=== PATIENT | male | born 1930 | race Caucasian/White ===

== ENCOUNTER 2018-12-03 10:21 | Inpatient (IN) ==
[2018-12-03] MEDS: 0.9 % Sodium Chloride 1,000 ML IVC SCH ×2 (11:37→21:52)
[2018-12-03] MEDS ORDERED: ISOVUE-370 200 ML INFUS..BTL ONE (11:43)
[2018-12-03] MEDS ORDERED: Nitroglycerin 1,000 MCG/10 ML VIAL IV ONE (11:43)
[2018-12-03] MEDS ORDERED: *HR* Heparin 10,000 UNIT/10 ML VIAL ONE (11:43)
[2018-12-03] MEDS ORDERED: 0.9 % Sodium Chloride 1,000 ML ONE (11:43)
[2018-12-03] MEDS ORDERED: Heparin 1,000 UNITS/500 mL 500 ML ONE (11:43)
[2018-12-03] MEDS ORDERED: *HR* Midazolam HCl 2 MG/2 ML VIAL ONE (12:27)
[2018-12-03] MEDS ORDERED: *HR* FentaNYL (PF) 100 MCG/2 ML VIAL ONE (12:27)
--- NOTE | 2018-12-03 13:30 | Pre-Sedation Evaluation ---
Pre-sedation evaluation - Pre-sedation checklist Date of procedure: 12/03/18 Procedure: Left heart cath Recent Vitals: Last Vital Signs Temp 98.4 F 12/03/18 10:38 Pulse 64 12/03/18 10:38 Resp 16 12/03/18 10:38 BP 184/82 12/03/18 10:38 Pulse Ox 97 12/03/18 10:38 H&P (including ROS) documented in medical record: Yes Previous reaction to sedatives/anesthetics: No Dietary Status: NPO after Midnight Dentition: No loose teeth or bridges ASA Classification *see protocol: CLASS II-Mild systemic disease Cardiac Registry (Cardio Only) - Functional Capacity Functional Capacity: >=4 METS without symptoms - Clincal Frailty Scale Clinical Frailty Scale: Managing Well
--- NOTE | 2018-12-03 13:31 | History & Physical Report ---
Date of Encounter: 12/03/18 Time of Encounter: 13:30 24 Hour HP Update - Instructions Instructions: If the History and Physical is less than 30 days old and was completed prior to A.M. admission and or procedure and has NOT been updated on calendar day of procedure please complete this update prior to performing procedure. - Update Patient reports changes in Medical Condition: No Changes in examination, assessment, or condition: No Changes in Medication: No Preop tests/diagnostics Reviewed: Yes Surgery Remains Indicated: Yes Consent for Planned Operative Procedure(s) Verified: Yes
--- NOTE | 2018-12-03 13:40 | Invasive Diagnostic Lab Proc ---
Name: Erik Coughlin Date of Study: 12/03/2018 Date: 1930 Ht: 68.0in Medical Record#: [id number] Age: 88 Wt: 163.00lb Gender: Male BSA: 1.87 Order #: [id number] BMI: 24.78 Physicians Procedure Physician: Kian Montana MD Referring MD: Emilee Conrad CNP Referring MD: Aleksey Joseph MD, [facility] Indications Indication Unstable Angina Procedures Performed Procedure CORONARY ARTERY ANGIO S&I Pre-Procedure Checklist Informed consent is complete signed and on chart. H&P is on chart. ID band is on and ID verified with patient. Patient NPO for procedure The procedure was described for the patient and questions were answered. Blood Pressure: 184/82 ECG is on chart. Rhythm: NSR Plan of Care Patient will tolerate the procedure without complications. Adequate level of comfort will be maintained. Hemodynamics will remain stable Patient will recover from procedure without complications. Respiratory function will be maintained. Cardiac rhythm will remain stable. Patient temperature will be maintained. Patient and/or family have verbalized understanding of the procedure. Patient Education Chief Complaint/Reason for Test: Cardiac Cath Developmental Category: Geriatric (65+ years) Developmentally Appropriate for Age: Yes Learning Barriers: None Education Needs: Procedure Education Method: Verbal Information Taught: Cardiac Cath Educational Evaluation: Able to repeat information Intravenous Access Time IV Size Location DC'd Fluid/Drip Rate Units RN 11:20 AM Started with 20g 1 1/4" Lt Arm 0.9NaCl 100 ml/hr Chemo Rojas RN Allergies No Known Allergies Vital Signs Time BP (mmHg) HR (bpm) O2 Sat. RR (bpm) LOC 11:23 AM 184 / 82 62 98 % 20 5 = Fully awake and oriented or at pre-proc level 12:32 PM / % 5 = Fully awake and oriented or at pre-proc level 12:32 PM / % 4 = Oriented but drowsy 12:48 PM / % 4 = Oriented but drowsy 01:07 PM 172 / 77 68 100 % 21 01:12 PM 168 / 82 73 % 24 12:32 PM 183 / 81 75 100 % 14 12:37 PM 176 / 77 63 100 % 15 12:42 PM 167 / 80 65 100 % 12 12:47 PM 169 / 75 61 100 % 16 12:52 PM 167 / 78 62 100 % 16 12:57 PM 157 / 73 61 100 % 18 01:02 PM 167 / 68 62 100 % 14 Procedural Medications Time Medication Dose Units Method Given By 12:32 PM Oxygen 2 L/min nasal cannula Taylor Fraire RN 12:34 PM Versed 1 mg Intravenous Taylor Fraire RN 12:34 PM Fentanyl 50 mcg Intravenous Taylor Fraire RN 12:48 PM Lidocaine 2% 19 ml Subcutaneous Kian Montana MD 12:53 PM Versed 0.5 mg Intravenous Taylor Fraire RN 12:53 PM Fentanyl 25 mcg Intravenous Taylor Fraire RN 12:55 PM Heparin 500 units Intravenous Taylor Fraire RN ASA Classification: CLASS II- Mild systemic disease (i.e. well-controlled diabetes, hypertension, asthma, cigarette smoking) Angle Score Preprocedure Postprocedure Activity 2- Moves 4 extremities sustained head lift Activity 2- Moves 4 extremities sustained head lift Circulation 2- SBP +/= 20 points of pre-anesthetic level Circulation 2- SBP +/= 20 points of pre-anesthetic level Consciousness 2- Awake and alert oriented x 3 Consciousness 2- Awake and alert oriented x 3 O2 Saturation 2- Able to maintain O2 satruation of 92% on room air O2 Saturation 2- Able to maintain O2 satruation of 92% on room air Respiratory 2- Able to deep breathe and cough well Respiratory 2- Able to deep breathe and cough well Total Score 10 Total Score 10 Contrast Agent: Isovue Diagnostic Contrast: 75 ml Total Contrast: 75 ml Fluoro Dose: 45 mGy Procedure Log Time Note Enter By 11:28 AM Risk for fall? ejohnson 11:28 AM Evidence of mental, physical, or emotional abuse? No ejohnson 11:28 AM Does patient have suicidal ideations? No ejohnson 12:31 PM Vitals capture started with the following parameters, Patient=Adult, Interval=5 min, Initial Ijpsklex=173 mmHg, Deflation Rate=5 mmHg, Cuff placed on Left Arm 12:31 PM Recorded ECG: HR=71 Condition=Condition 1 12:31 PM CathStat 12:32 PM Pt arrived to label sewer 1 at 12:32 cedwards 12:32 PM Patient charges- Angio tray pack, Navilyst 3mm J, Pulse Oximetry and ACIST tubing and transducer cedwards 12:32 PM IV Supplies used: J loop Angio Cath. cedwards 12:32 PM Physician arrived 12:32 cedwards 12:32 PM ASA Class CLASS II- Mild systemic disease (i.e. well-controlled diabetes, hypertension, asthma, cigarette smoking) cedwards 12:32 PM Meet and greet completed ced 12:32 PM Sign in performed according to hospital policy. Informed consent was obtained. ced 12:32 PM Procedure start 12:32 ced 12:32 PM Time: 12:32 Patient comfortable and pain free: Yes cedwards 12:32 PM HR=75 bpm, YYKD=490/81 mmhg, ClU2=741.0 %, Resp=14 B/min, EtCO2=27 mmHg, Comment=NSR 12:32 PM Time: 12:32LOC: 5 = Fully awake and oriented or at pre-proc level cedwards 12:33 PM Time: 12:32 Oxygen on at 2 L/min per nasal cannula by Taylor Fraire RN cedwards 12:33 PM Hair removed from procedure site in holding area using clippers. Bilateral groin prepped with Chloraprep by Nicanor Wagner RN, then patient was draped. Skin intact. cedwards 12:34 PM Time: 12:34 Versed 1 mg Intravenous Given by Taylor Fraire RN ced 12:34 PM Time: 12:34 Fentanyl 50 mcg Intravenous Given by Taylor Fraire RN cedwards 12:37 PM HR=63 bpm, SPCL=376/77 mmhg, NuV8=668.0 %, Resp=15 B/min, EtCO2=20 mmHg, Comment=NSR 12:40 PM Pressure channel 2 zeroed. 12:42 PM HR=65 bpm, PQYY=159/80 mmhg, OxI5=707.0 %, Resp=12 B/min, EtCO2=26 mmHg, Comment=NSR 12:47 PM Clinical Presentation: Unstable angina cedwards 12:47 PM Time out was performed according to hospital policy. Conscious sedation and anesthesia was achieved (see medication log with in this report above) cedwards 12:47 PM HR=61 bpm, OZXG=445/75 mmhg, UeV8=406.0 %, Resp=16 B/min, EtCO2=27 mmHg, Comment=NSR 12:48 PM Time: 12:32LOC: 4 = Oriented but drowsy cedwards 12:48 PM Time: 12:32 Patient comfortable and pain free: Yes cedwards 12:48 PM Pressure channel 2 zeroed. 12:48 PM Time: 12:48 19 ml Lidocaine 2% to right groin Subcutaneous Given by Kian Montana MD cedwards 12:49 PM Micro-Introducer Kit utilized for sheath placement cedwards 12:51 PM 0.035 145cm Navilyst 3mmJ wire [id number] cedwards 12:51 PM Access obtained by percutaneous puncture. 6Fr 10cm Terumo [place] sheath placed in right Femoral artery. [id number] cedwards 12:52 PM HR=62 bpm, XJJK=828/78 mmhg, GjB3=381.0 %, Resp=16 B/min, EtCO2=26 mmHg, Comment=NSR 12:53 PM Time: 12:53 Versed 0.5 mg Intravenous Given by Taylor Fraire RN cedwards 12:53 PM Time: 12:53 Fentanyl 25 mcg Intravenous Given by Taylor Fraire RN cedwards 12:54 PM 5Fr FR 4 catheter inserted over the wire [facility] cedwards 12:55 PM RCA angiography performed in multiple views. cedwards 12:55 PM Time: 12:55 Heparin 500 units Intravenous Given by Taylor Fraire RN cedwards 12:56 PM Catheter removed cedwards 12:56 PM 5Fr FL 4 catheter inserted over the wire [facility] cedwards 12:56 PM LCA angiography performed in multiple views. cedwards 12:57 PM HR=61 bpm, TPXP=742/73 mmhg, SlG0=487.0 %, Resp=18 B/min, Comment=NSR 12:58 PM Recorded Pressure: Ao, HR=63, Condition=Condition 1 (Aorta) Ao 117/50/73 12:59 PM Catheter removed cedwards 01:00 PM 5Fr SRC catheter inserted over the wire [id number] cedwards 01:01 PM Recorded Pressure: Ao, HR=63, Condition=Condition 1 (Aorta) Ao 176/70/110 01:02 PM RCA angiography performed in multiple views. cedwards 01:02 PM HR=62 bpm, FSKS=898/68 mmhg, LhJ6=714.0 %, Resp=14 B/min, EtCO2=29 mmHg, Comment=NSR 01:03 PM Time: 12:48 Patient comfortable and pain free: Yes cedwards 01:03 PM Time: 12:48LOC: 4 = Oriented but drowsy cedwards 01:04 PM Catheter removed cedwards 01:05 PM 5Fr Pigtail catheter inserted over the wire DNC cedwards 01:06 PM unable to cross valve cedwards 01:07 PM HR=68 bpm, PRIS=451/77 mmhg, GmB8=675.0 %, Resp=21 B/min 01:07 PM Catheter removed cedwards 01:08 PM Cardiothoracic surgeon consulted, spoke with Dr. Mccord cedwards 01:08 PM Procedure completed at 13:08 12/03/2018 cedwards 01:08 PM Did you address SABA flow and Dominance? YesCoronary Dominance: right cedwards 01:09 PM Sign out completed: Radiation Dose 320.88 mGy, 45.4 Gy/cm2 Fluoro Time: 7.7 Isovue 370 - 200ml contrast 75 ml given by Kian Montana MD. Complications: None. 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 Sedation minutes 34. Cardiac Rehab Consult needed: Yes. Confirmed administered medications: Yes cedwards 01:09 PM Isovue 370 - 200ml,1 Bottle(s) used. cedwards 01:10 PM Arterial sheath pulled, Mynx closure device used and was Successful [id number] S/N. cedwards 01:10 PM Estimated Blood Loss: minimal cedwards 01:10 PM Post ECG NSR cedwards 01:10 PM Post Blood Pressure 172/77 cedwards 01:10 PM Information taught Cardiac Cath and Mynx cedwards 01:10 PM Education needs Procedure, Plan of Care, and Disease Process cedwards 01:10 PM Learning barriers :None cedwards 01:10 PM Education Methods Verbal cedwards 01:10 PM Education evaluation Able to repeat information cedwards 01:11 PM Site status No bleeding/ No Hematoma - Rt Groin as reported by Kian Montana MD at 13:10 cedwards 01:11 PM Opsite applied cedwards 01:11 PM Plavix, Effient or Brilinta given No cedwards 01:11 PM Family placed in consult room. cedwards 01:11 PM Complications: None cedwards 01:12 PM HR=73 bpm, UVNU=641/82 mmhg, Resp=24 B/min 01:20 PM Report given to Tessie KIRKPATRICK Pt taken to 2A Room #25. 13:20 cedwards 01:22 PM Lesion found in Proximal RCA. Pre Stenosis: 70 Pre SABA Flow: cedwards 01:22 PM Lesion found in Mid RCA. Pre Stenosis: 60 Pre SABA Flow: cedwards 01:23 PM Lesion found in Proximal LMCA. Pre Stenosis: 70 Pre SABA Flow: cedwards 01:23 PM Lesion found in Proximal LAD. Pre Stenosis: 70 Pre SABA Flow: cedwards 01:23 PM Lesion found in Distal Circumflex. Pre Stenosis: 80 Pre SABA Flow: cedwards 01:23 PM Lesion found in Right PDA. Pre Stenosis: 70 Pre SABA Flow: cedwards 01:[address] Mccord in lab reviewing films cedwards Complications Complication None None Hemodynamics Pressures Site Systolic/A Wave Diastolic/V Wave Mean AO 117 50 73 AO 176 70 110 Post Procedure Information Blood Pressure: 172/77 mmHg Rhythm: NSR Post procedural instructions were given Closure Device Time Device Success/Fail 12/03/2018 1:21:00 PM MynxGrip Successful Site Checks Time Location Status Staff Sheath In? Note 01:10 PM Rt Groin No bleeding/ No Hematoma Kian Montana MD no Pulses Time Site Pre-Procedure Post-Procedure Note 12/03/2018 11:21:00 AM Bilateral DP & PT 2+ 2+ Updated by Nicanor Wagner RN on 12/03/2018 1:30:01 PM electronically signed on 12/03/2018 1:33:56 PM with status of Final
--- NOTE | 2018-12-03 15:22 | Cardiothoracic Consult Note ---
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 Recently, the patient has experienced throat pain radiating to his upper chest and associated shortness of breath. He mentioned these symptoms to his vascular surgeon, Dr. Jimmy Torres, who referred him for cardiac evaluation. The patient underwent cardiac catheterization today was found to have severe 3 vessel CAD. In particular, the patient has a 70% ostial/proximal left main lesion, 70% proximal LAD lesion, an 80% distal LCx lesion, 70% proximal RCA lesion, a 60% mid RCA lesion, and a 70% mid right PDA lesion. He has been recommended for urgent CABG. I concur with this recommendation. The STS risk calculator reveals an operative mortality risk 5.32%, renal failure risk 7.44%, permanent stroke risk 2.66%, deep sternal wound infection 0.31%, and reoperation risk 2.29%. Prior to his CABG, the patient will need a transthoracic echocardiogram to evaluate his valvular function as well as a serum creatinine level to ensure that the contrast load did not affect his renal function. If the transthoracic echocardiogram and the sternum creatinine are acceptable, the patient will be scheduled for CABG on 12/05/2018. The assessment and plan as outlined above was discussed with the patient and/or family members who expressed understanding and agreement. All questions were answered. Qualifiers: Coronary Disease-Associated Artery/Lesion type: [place] artery [place] vs. transplanted heart: [place] heart Associated angina: with unstable angina Qualified Code(s): I25.110 - Atherosclerotic heart disease of [place] coronary artery with unstable angina pectoris - History of Present Illness Consult date: 12/03/18 Requesting physician: Kian Montana Consult reason: CABG evaluation Chief complaint: Substernal chest pain History of present illness: Mr. Coughlin is a 88 year old type II diabetic, hypertensive man with known right carotid artery disease, hypercholesterolemia, and CKD, Stage III. The patient was being evaluated by his vascular surgeon, Dr. Jimmy Torres, for his right carotid artery disease and mentioned that he had throat pain radiating into his upper chest. He was referred for cardiac evaluation. 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 Recently, the patient states that the symptoms have become more frequent and severe. He underwent cardiac catheterization today was found to have severe 3 vessel CAD. In particular, the patient has a 70% ostial/proximal left main lesion, a 70% proximal LAD lesion, an 80% distal LCx lesion, a 70% proximal RCA lesion, a 60% mid RCA lesion, and a 70% mid right PDA lesion. He has been recom mended for urgent CABG. 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 - Social History Smoking Status: Former smoker Packs per day: < 1PPD x 8YRS (quit smoking 58 years ago) Smokeless Tobacco Status: No Alcohol use: occasionally Drug use: none Occupational status: retired Current living situation: Home - Independent Activity Level: Independent ambulation Recent Out of Country Travel Within the Last 8 Weeks: No Exposure or Possible Exposure to Illness During Travel: No - Family History Mother Living Status: Medications and Allergies Amlodipine Besylate 10 mg PO DAILY 10/30/15 [History] Aspirin Enteric Coated [Aspirin EC] 81 mg PO DAILY 10/30/15 [History] Cholecalciferol (D-3) [Vitamin D] 1,000 unit PO DAILY 10/30/15 [History] Ferrous Sulfate [Iron Supplement] 325 mg PO BID 10/30/15 [History] Insulin ASPART [Novolog Flexpen] 4 - 10 unit SQ TID 10/30/15 [History] Lisinopril 2.5 mg PO DAILY 10/30/15 [History] Nitroglycerin [Nitrostat] 0.4 mg SL AD PRN 10/30/15 [History] Tamsulosin [Flomax] 0.4 mg PO DAILY 10/30/15 [History] Denosumab [Prolia (For Outpatient Infusion)] 60 mg SQ [id number] 12/03/18 [History] Finasteride [Proscar] 5 mg PO DAILY 12/03/18 [History] Insulin Degludec [Tresiba Flextouch U-200] 12 unit SQ DAILY 12/03/18 [History] Lisinopril 2.5 mg PO DAILY 12/03/18 [History] Metoprolol Succinate [Toprol Xl] 25 mg PO DAILY 12/03/18 [History] Rosuvastatin [Crestor] 20 mg PO HS 12/03/18 [History] Allergy/AdvReac Type Severity Reaction Status Date / Time No Known Allergies Allergy Verified 10/30/15 12:56 All Systems Review: The remainder of the systems were reviewed and are negative Physical Examination Vital Signs, Last 4 Hours Temp Pulse Resp BP Pulse Ox 12/03/18 14:30 62 16 162/79 96 12/03/18 14:15 62 16 162/79 96 12/03/18 14:06 95 12/03/18 14:00 64 16 155/77 99 12/03/18 13:45 97.9 F 65 16 157/66 97 General: Conversant, No Apparent Distress HEENT: Atraumatic, Normocephaly, Trachea midline Neck: No JVD, Normal carotid pulses Cardiac: Reg Rate and Rhythm, Normal S1 and S2, No Murmur Lungs: Normal Breath Sounds, No Wheeze, Rales, Rhonchi Neuro: Alert and responsive, No focal deficits noted, Motor nerves intact, Sensory nerves intact Vascular: Normal capillary refill Abdomen: Soft, Non-tender Skin: No rashes noted on visualized skin Musculoskeletal: No Chest Wall Tenderness Extremities: No Clubbing, No Cyanosis, No Edema Consult Discharge Plan - Plan Referrals: Emilee Conrad CNP [Primary Care Provider] -
[2018-12-03] MEDS ORDERED: Dextrose Gel 15 GM/37.5 ML TUBE PO PRN ×2 (15:34)
[2018-12-03] MEDS ORDERED: D5% in Water 1,000 ML IVC PRN (15:34)
[2018-12-03] MEDS ORDERED: *HR* Dextrose 50 % in Water (Syg) 50 ML SYRINGE IVP PRN (15:34)
[2018-12-03] MEDS: Insulin LISPRO 300 UNITS/3 ML VIAL SQ SCH ×2 (17:18→20:26)
[2018-12-04] MEDS ORDERED: Nitroglycerin 0.4 MG TAB.SUBL SL ONE (02:08)
[2018-12-04] MEDS: Nitroglycerin 0.4 MG TAB.SUBL SL PRN ×2 (02:09→02:15)
[2018-12-04] MEDS ORDERED: *HR* Heparin 5,000 UNIT/ML VIAL IVP PRN ×2 (02:41)
[2018-12-04 03:21] LABS: Basophils % 0.3 %; Eosinophils # 0.1 K/mcL (0.0-0.6); Eosinophils % 1.3 %; Hematocrit 29.6 % (37.5-50.1); Hemoglobin 9.7 g/dL (12.9-16.9); Immature Granulocytes % 0.7 % (0-4); Lymphocytes # 1.3 K/mcL (0.6-4.6); Lymphocytes % 17.8 %; Mean Corpuscular HGB Conc 32.8 g/dL (31.6-35.5); Mean Corpuscular Hemoglobin 29.9 pg (28.0-33.3); Mean Corpuscular Volume 91.4 fL (83.0-100.0); Mean Platelet Volume 10.3 fL (9.4-12.4); Monocytes # 0.8 K/mcL (0.0-1.3); Monocytes % 11.8 %; Neutrophils # 4.8 K/mcL (1.6-8.9); Platelet Count 157 K/mcL (140-400); Red Blood Count 3.24 M/mcL (4.19-5.50); Red Cell Distribution Width 15.9 % (11.5-14.5); Segmented Neutrophils % 68.1 %
[2018-12-04 03:32] LABS: INR 1.1; Prothrombin Time 12.2 Seconds (9.4-12.1)
[2018-12-04] MEDS: 0.9 % Sodium Chloride 1,000 ML IVC SCH ×3 (03:39→23:59)
[2018-12-04 03:40] LABS: Potassium 4.6 mEq/L (3.5-5.1)
[2018-12-04] MEDS: Heparin 25,000 UNIT/250 ML D5W 25,000 UNIT/250 ML IV.SOLN IVC SCH (04:12)
[2018-12-04] MEDS ORDERED: CeFAZolin Syr 2,000MG/20 ML 2,000 MG/20 ML SYRINGE IVPB ONE (06:01)
--- NOTE | 2018-12-04 06:01 | Cardiothoracic Progress Note ---
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 Recently, the patient has experienced throat pain radiating to his upper chest and associated shortness of breath. He mentioned these symptoms to his vascular surgeon, Dr. Jimmy Torres, who referred him for cardiac evaluation. The patient underwent cardiac catheterization today was found to have severe 3 vessel CAD. In particular, the patient has a 70% ostial/proximal left main lesion, 70% proximal LAD lesion, an 80% distal LCx lesion, 70% proximal RCA lesion, a 60% mid RCA lesion, and a 70% mid right PDA lesion. He has been recommended for urgent CABG. I concur with this recommendation. The STS risk calculator reveals an operative mortality risk 5.32%, renal failure risk 7.44%, permanent stroke risk 2.66%, deep sternal wound infection 0.31%, and reoperation risk 2.29%. Prior to his CABG, the patient will need a transthoracic echocardiogram to evaluate his valvular function as well as a serum creatinine level to ensure that the contrast load did not affect his renal function. If the transthoracic echocardiogram and the sternum creatinine are acceptable, the patient will be scheduled for CABG on 12/05/2018. The assessment and plan as outlined above was discussed with the patient and/or family members who expressed understanding and agreement. All questions were answered. Qualifiers: Coronary Disease-Associated Artery/Lesion type: [place] artery [place] vs. transplanted heart: [place] heart Associated angina: with unstable angina Qualified Code(s): I25.110 - Atherosclerotic heart disease of [place] coronary artery with unstable angina pectoris - Subjective Interval history: The patient remained hemodynamic stable overnight. He had some chest pain early this morning which was controlled with sublingual nitroglycerin. Vital Signs, Last 4 Hours Temp Pulse Resp BP Pulse Ox 12/04/18 03:46 98.2 F 62 16 146/57 99 12/04/18 03:10 156/62 12/04/18 02:24 98.1 F 81 16 131/66 100 12/04/18 02:11 98.1 F 90 18 126/64 98 Oxgyen Flow Rate Oxygen Flow Rate (LPM) 2 Clinical Data, last 8 Hours Output, Urine Amount 200 Weight 12/02/18 12/03/18 12/04/18 23:59 23:59 23:59 Weight 73.6 kg - Physical Examination General: Conversant, No Apparent Distress Neck: No JVD, Normal carotid pulses Cardiac: Reg Rate and Rhythm, Normal S1 and S2, No Murmur Lungs: Normal Breath Sounds, No Wheeze, Rales, Rhonchi Neuro: Alert and responsive, No focal deficits noted Vascular: Normal capillary refill Extremities: No Clubbing, No Cyanosis, No Edema - Labs 12/04/18 03:04 12/04/18 03:04 Lab Results, Last 24 hours 12/04/18 12/04/18 12/04/18 03:04 03:04 03:04 WBC 7.0 Hgb 9.7 L Hct 29.6 L Plt Count 157 INR 1.1 Sodium 137 Potassium 4.6 Chloride 112 H Carbon Dioxide 19 L BUN 28 H Creatinine 1.74 H Glucose 100 Calcium 8.0 L Consult Discharge Plan - Plan Referrals: Emilee Conrad RN REHABILITATION [Primary Care Provider] -
[2018-12-04 07:45] LABS: Estimated Average Glucose 171 mg/dl
[2018-12-04 08:02] LABS: Chol/HDL Ratio 2.3 (0-4.9)
[2018-12-04] MEDS ORDERED: Chlorhexidine Rinse 15 ML MOUTHWASH MM SCH (09:00)
[2018-12-04] MEDS: Insulin LISPRO 300 UNITS/3 ML VIAL SQ SCH ×4 (09:08→20:07)
[2018-12-04] MEDS: Metoprolol XL (24 HR) Succ 25 MG TAB.ER.24H PO SCH (09:16)
[2018-12-04] MEDS: Finasteride 5 MG TABLET PO SCH (09:16)
[2018-12-04] MEDS: amLODIPine 5 MG TABLET PO SCH (09:16)
[2018-12-04] MEDS: Aspirin Enteric Coated 81 MG Tablet PO SCH (09:16)
[2018-12-04] MEDS: Cholecalciferol (D-3) 1,000 UNIT (25MCG) TABLET PO SCH (09:16)
--- NOTE | 2018-12-04 09:24 | Cardiology Progress Note ---
Date of Encounter: 12/04/18 Time of Encounter: 09:21 Assessment and Plan (1) CAD (coronary artery disease) Current Visit: Yes Status: Acute Pt presented for out-pt LHC with Dr. Montana. LHC revealed severe 3 V CAD including L main disease. He was placed on heparin gtt and CT surgery consulted. Patient scheduled for CABG tomorrow morning. Chest pain this morning relieved with SL NTG. EKG with ST depression in I, AVL, V6. Will give imdur this morning. Continue heparin gtt. Asa, statin, bb. TTE- EF 60%. Mild diastolic dysfunction, normal RV, moderatley sclerotic aortic valve leaflets. No . MRSA screen negative. Cardiac rehab ordered. Out-pt f/u will be coordinated with [facility]. Qualifiers: Coronary Disease-Associated Artery/Lesion type: [place] artery [place] vs. transplanted heart: [place] heart Associated angina: with unstable angina Qualified Code(s): I25.110 - Atherosclerotic heart disease of [place] coronary artery with unstable angina pectoris (2) Diabetes mellitus, type II, insulin dependent Current Visit: No Status: Chronic Hgb A1C 7.6. Higher than last check. Pt notes insulin recently decreased due to hypoglycemia. On SSI during this stay. Glucose 97 this morning. (3) Hypertension Current Visit: Yes Status: Chronic B/p elevated. Adding imdur this morning. Continue norvasc and toprol xl. Low sodium diet. Qualifiers: Hypertension type: essential hypertension Qualified Code(s): I10 - Essential (primary) hypertension Discussion w patient/family: The assessment and plan as outlined above was discussed with the patient and/or family members who expressed understanding and agreement. All questions were answered. Thank you for involving us in the care of your patient. Please call with any questions. Subjective Principal diagnosis: CAD Interval history: Mr. Coughlin has chest pain this morning relieved with 2 SL NTG. No recurrent pain. No problems noted with right femoral access. Objective Vital Signs, Last 4 Hours Temp Pulse Resp BP Pulse Ox 12/04/18 07:32 97.7 F 71 18 165/65 98 General: Conversant, No Apparent Distress HEENT: Atraumatic, Normocephaly, Mucus Membranes Moist Neck: No JVD, Normal carotid pulses Cardiac: Reg Rate and Rhythm, Normal S1 and S2, No Murmur Lungs: Normal Breath Sounds, No Wheeze, Rales, Rhonchi Neuro: Alert and responsive, No focal deficits noted Abdomen: Soft, Non-Tender Skin: No rashes noted on visualized skin Musculoskeletal: No Chest Wall Tenderness Extremities: No Clubbing, No Cyanosis, No Edema, Normal Pulses, Other (Right femoral with no hematoma.) Results 12/04/18 03:04 12/04/18 03:04 Lab Results 12/04/18 12/04/18 12/04/18 03:04 03:04 03:04 WBC 7.0 Hgb 9.7 L Hct 29.6 L Plt Count 157 INR 1.1 Sodium 137 Potassium 4.6 Chloride 112 H Carbon Dioxide 19 L BUN 28 H Creatinine 1.74 H Glucose 100 Calcium 8.0 L - Imaging and Cardiology Echo: report reviewed Consult Discharge Plan - Plan Referrals: Emilee Conrad CNP [Primary Care Provider] -
--- NOTE | 2018-12-04 09:40 | Anesthesia Evaluation PreOp ---
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%) Pulmonary History: Former smoker (quiut 58 yrs ago) TELEPHONE ORDER CLERK History: Denies Any Significant HX Other Medical History: Renal (CKD 3), Diabetes Type II Anesthesia History: No Prior Anesthetic Complications, Past Anesthesia (appy, lumbar laminectomy with fusion) Alcohol Use: occasionally Drug use: none Medications and Allergies Aspirin Enteric Coated [Aspirin EC] 81 mg PO QPM 10/30/15 [History] Cholecalciferol (D-3) [Vitamin D] 1,000 unit PO QAM 10/30/15 [History] Insulin ASPART [Novolog Flexpen] 4 - 10 unit SQ TID 10/30/15 [History] Nitroglycerin [Nitrostat] 0.4 mg SL AD PRN 10/30/15 [History] Denosumab [Prolia (For Outpatient Infusion)] 60 mg SQ [id number] 12/03/18 [History] Finasteride [Proscar] 5 mg PO DAILY 12/03/18 [History] Insulin Degludec [Tresiba Flextouch U-200] 12 unit SQ QAM 12/03/18 [History] Lisinopril 2.5 mg PO QAM 12/03/18 [History] Metoprolol Succinate [Toprol Xl] 25 mg PO DAILY 12/03/18 [History] Rosuvastatin [Crestor] 20 mg PO HS 12/03/18 [History] Amlodipine Besylate 10 mg PO DAILY 12/04/18 [History] Ferrous Sulfate 325 mg PO BID 12/04/18 [History] Tamsulosin HCl [Flomax] 0.4 mg PO DAILY 12/04/18 [History] Allergy/AdvReac Type Severity Reaction Status Date / Time No Known Allergies Allergy Verified 12/04/18 19:46 - Meds/Allergy Pre-op Review Medications Reviewed: Yes Allergies Reviewed: Yes Beta Blockers on Current Med List: Yes (Toprolol) If Beta Blockers taken, Date/Time (Last Dose taken): today 0630 Anesthesia Results - Labs 12/04/18 03:04 12/05/18 05:36 - Imaging Additional studies: echo: Impressions: LVEF 60%. Normal LV chamber size, wall thickness and systolic function. Mild left ventricular diastolic dysfunction. Normal right ventricular structure and function. No evidence of pulmonary hypertension. Moderately sclerotic aortic valve leaflets. No aortic stenosis. cath: Indications: Unstable Angina Impressions: There is severe three vessel coronary artery disease. Recommendations: Optimal medical therapy of patient's disease. Aggressive risk factor modification. Suggest patient have Elective coronary artery bypass surgery. Coronary Dominance: right Lesion Findings/Interventions * Left Main Coronary Artery There is a 70% stenosis in the Proximal LMCA. * Left Anterior Descending There is a 70% stenosis in the Proximal LAD. * Circumflex There is a 80% stenosis in the Distal Circumflex. * Right Coronary Artery There is a 70% stenosis in the Proximal RCA. There is a 60% stenosis in the Mid RCA. There is a 70% stenosis in the Right PDA. Anesthesia Exam Selected Entries 12/05/18 03:37 Temperature 97.8 F Pulse Rate 66 Respiratory Rate 17 Blood Pressure 160/72 O2 Sat by Pulse Oximetry 96 Weight: 79kg NPO (# of Hours): 8 - HEENT Pupil (Motor): EOMI Mallampati: II Teeth: Normal Oral Opening: Greater than 3 - TELEPHONE ORDER CLERK LOC: Oriented TELEPHONE ORDER CLERK Motor: Normal RUE, Normal LUE, Normal RLE, Normal LLE, Normal Face TELEPHONE ORDER CLERK Sensory: Normal: RUE, LUE, RLE, LLE, Face - Cardiac Rhythm: Regular Murmur: None - Pulmonary Breath Sounds: bilateral Clear Respiratory Effort: Symmetrical Anesthesia Assess/Plan ASA Score: 4 Level of consciousness: Cooperative, Oriented, Tranquil Anesthetic Plan: General Monitoring Plan: Standard Monitors, A-Line, PAC, SAMEER (agrees to GA, lines, SAMEER and blood products) Recovery Plan: ICU
[2018-12-04] MEDS ORDERED: Isosorbide MONOnitrate (24 HR) 30 MG TAB.ER.24H PO ONE (11:16)
--- NOTE | 2018-12-04 14:13 | Electrocardiograph Report ---
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
[2018-12-04] MEDS: Chlorhexidine Rinse 15 ML MOUTHWASH MM SCH (18:12)
[2018-12-05] MEDS: Chlorhexidine Rinse 15 ML MOUTHWASH MM SCH ×2 (05:50→19:49)
[2018-12-05] MEDS ORDERED: Insulin Human Regular 100 UNIT in 0.9 % Sodium Chloride 100 ML IV PRN (06:00)
[2018-12-05] MEDS ORDERED: Dextrose 50 % in Water (Vial) 30 ML, Sodium Bicarbonate 20 MEQ, Lidocaine 1% 5 ML, Insu... TH ONE ×3 (06:00)
[2018-12-05] MEDS ORDERED: Dextrose 50 % in Water (Vial) 30 ML, Sodium Bicarbonate 20 MEQ, Potassium Chloride 15 M... TH ONE (06:00)
[2018-12-05] MEDS ORDERED: Heparin 15,000 UNIT in 0.9 % Sodium Chloride 500 ML IV ONE (06:00)
[2018-12-05] MEDS ORDERED: CeFAZolin Syr 2,000MG/20 ML 2,000 MG/20 ML SYRINGE IVPB ONE (06:00)
[2018-12-05] MEDS ORDERED: Norepinephrine 4 MG in D5% in Water 250 ML IVC PRN (06:00)
[2018-12-05] MEDS ORDERED: NiCARdipine 2.5 MG/10 ML Syringe IVPB ONE (06:18)
[2018-12-05] MEDS ORDERED: Nitroglycerin 25 MG/250 ML INFUS..BTL IVC ONE (06:18)
[2018-12-05] MEDS ORDERED: *HR* Rocuronium Bromide 50 MG/5 ML VIAL ONE (06:23)
[2018-12-05] MEDS ORDERED: *HR* Midazolam HCl 5 MG/5 ML VIAL IVP ONE (06:23)
[2018-12-05] MEDS ORDERED: *HR* FentaNYL (PF) 1,000 MCG/20 ML VIAL ONE (06:23)
[2018-12-05] MEDS ORDERED: *HR* PHENYLEPHRINE 1,000 MCG/10 ML SYRINGE IVP ONE (06:23)
[2018-12-05] MEDS ORDERED: Famotidine 20 MG/2 ML VIAL ONE (06:24)
[2018-12-05] MEDS ORDERED: Protamine Sulfate 250 MG/25 ML VIAL IVP ONE (06:24)
[2018-12-05] MEDS ORDERED: *HR* Etomidate 20 MG/10 ML AMPUL IVP ONE (06:24)
[2018-12-05] MEDS ORDERED: Tranexamic Acid 1,000 MG/10 ML VIAL ONE ×2 (06:24→08:31)
[2018-12-05] MEDS ORDERED: Calcium Gluconate 1,000 MG/10 ML VIAL ONE (06:24)
[2018-12-05] MEDS: Aspirin Enteric Coated 81 MG Tablet PO SCH (06:33)
[2018-12-05] MEDS: Metoprolol XL (24 HR) Succ 25 MG TAB.ER.24H PO SCH (06:33)
[2018-12-05 06:46] LABS: Calcium 8.3 mg/dL (8.6-10.3); Potassium 4.6 mEq/L (3.5-5.1)
[2018-12-05] MEDS ORDERED: Albumin Human 25% 25 GM/100 ML IV.SOLN IV ONE (08:05)
[2018-12-05] MEDS ORDERED: Mannitol 25% vial 12.5 GM/50 ML VIAL IVP ONE (08:05)
[2018-12-05] MEDS ORDERED: Lidocaine 2% Syringe 100 MG/5 ML IV ONE (08:05)
[2018-12-05] MEDS ORDERED: Tranexamic Acid 1,000 MG/10 ML VIAL IVPB ONE (08:05)
[2018-12-05] MEDS ORDERED: *HR* Phenylephrine 10 MG/ML VIAL IVC ONE (08:05)
[2018-12-05] MEDS ORDERED: *HR* Magnesium Sulfate 2 GM/50 ML PIGGYBACK IVPB ONE (08:05)
[2018-12-05] MEDS ORDERED: Sodium Bicarbonate 50 MEQ/50 ML VIAL IVC ONE (08:05)
--- NOTE | 2018-12-05 08:34 | Anesthesia Procedures ---
Date of Encounter: 12/05/18 Time of Encounter: 07:50 Procedures: Anesthesia - Arterial Line Consent obtained: written consent Time out performed: Yes Sedation: Versed (mg): 2 Sedation: Fentanyl (mcg): 100 Supplemental Oxygen via Nasal Cannula (L/min): 2 Local Anesthetic: Lidocaine 1% Amount of Anesthetic used (mls): 1 Size (Gauge): 20 Length (inches): 5 Technique Used: sterile prep, guide wire technique, direct puncture technique Post-Procedure: line taped into place, dry sterile dressing placed Patient tolerated procedure: well, no complications Complications: none Site: Radial L - Central Line Placement Right IJ Consent obtained: written consent Time out performed: Yes Patient placed on monitor/pulse ox: Yes prep: mask, gown, gloves Central line prep: Chlorhexidine scrub Ultrasound used for placement: Yes Technique: Seldinger Lumen Inserted: Introducer Size / Length: 9 Fr / 10 cm Post procedure: sutured in place, good blood return, all ports aspirated, flushed, capped, sterile dressing applied Patient tolerated procedure: well Complications: none Comments: introducer placed easily, aspiration easy, swan placed without arrythmias, wedge approx 55cm
[2018-12-05 09:31] LABS: ABG Base Excess -7 mEq/L (-2 to 3); ABG Chloride 109 mEq/L (98-107); ABG Glucose 227 mg/dL (60-95); ABG HCO3 19 mEq/L (21-27); ABG Ionized Calcium 1.21 mmol/L (1.15-1.35); ABG Oxygen Saturation 99 % (95-98); ABG PCO2 39 mmHg (35-45); ABG PH 7.28 pH Units (7.32-7.45); ABG PO2 152 mmHg (85-104); ABG TCO2 20 mEq/L (20-26)
[2018-12-05] MEDS ORDERED: Isosorbide MONOnitrate (24 HR) 30 MG TAB.ER.24H PO ONE (09:33)
[2018-12-05 11:16] LABS: ABG Base Excess -2 mEq/L (-2 to 3); ABG Chloride 107 mEq/L (98-107); ABG Glucose 218 mg/dL (60-95); ABG HCO3 23 mEq/L (21-27); ABG Ionized Calcium 1.29 mmol/L (1.15-1.35); ABG Oxygen Saturation 100 % (95-98); ABG PCO2 37 mmHg (35-45); ABG PH 7.39 pH Units (7.32-7.45); ABG PO2 476 mmHg (85-104); ABG TCO2 24 mEq/L (20-26)
[2018-12-05 11:23] LABS: ABG Base Excess -5 mEq/L (-2 to 3); ABG Chloride 111 mEq/L (98-107); ABG Glucose 152 mg/dL (60-95); ABG HCO3 20 mEq/L (21-27); ABG Ionized Calcium 1.29 mmol/L (1.15-1.35); ABG Oxygen Saturation 98 % (95-98); ABG PCO2 34 mmHg (35-45); ABG PH 7.38 pH Units (7.32-7.45); ABG PO2 103 mmHg (85-104); ABG TCO2 21 mEq/L (20-26)
[2018-12-05] MEDS: Nitroglycerin 25 MG/250 ML INFUS..BTL IVC SCH ×2 (11:44→19:54)
[2018-12-05] MEDS ORDERED: Insulin Regular, Human 100 UNIT/ML IV PRN (11:51)
[2018-12-05] MEDS ORDERED: *HR* Dextrose 50 % in Water (Syg) 50 ML SYRINGE IVP PRN (11:51)
[2018-12-05] MEDS ORDERED: Potassium Chloride 40 MEQ/200 ML BAG IVPB PRN (11:51)
--- NOTE | 2018-12-05 11:51 | Operative Note ---
Date of procedure: 12/05/18 Pre-op diagnosis: CAD Post-op diagnosis: same Procedure: 1. CABG4 (KATZ to LAD, sequential SVG to OM1 then OM 2, SVG to PDA). 2. Endoscopic vein harvesting, greater saphenous vein from right lower extremity. Implants: None. Complications: None. Anesthesia: GETA Surgeon: Yeni Mccord Was there an ice cream freezer assistant present: Yes Cooler Conveyor Loader: Musa Cabrera Estimated blood loss (cc): 500 Specimen: None. Condition: stable Disposition: ICU Procedure in Detail: INDICATIONS FOR OPERATION: The patient is a 88 year old type II diabetic, hypertensive man with known right carotid artery disease, hypercholesterolemia, and CKD, Stage III. The patient was being evaluated by his vascular surgeon, Dr. Jimmy Torres, for his right carotid artery disease and mentioned that he had throat pain radiating into his upper chest. He was referred for cardiac evaluation. The patient told his rigging up man that he has experienced throat pain radiating to his upper chest with activity and has associated shortness of breath for several weeks. Recently, the patient states that the symptoms have become more frequent and severe. He underwent cardiac catheterization today was found to have severe 3 vessel CAD. In particular, the patient has a 70% ostial/proximal left main lesion, a 70% proximal LAD lesion, an 80% distal LCx lesion, a 70% proximal RCA lesion, a 60% mid RCA lesion, and a 70% mid right PDA lesion. He has been recommended for urgent CABG. His serum creatinine increased from 1.692 1.9 on the day of operation; however, he continued to have substernal chest pain while in the hospital on a heparin drip. It was decided to perform his CABG today rather than wait for creatinine to return to his baseline. FINDINGS AT OPERATION: The aorta was thickened but without calcification. The coronary arteries measured proximally 1.5-2 mm diameter and had mild to moderate distal disease, particularly the LAD and OM1 branch. The greater saphenous vein was harvested endoscopically from the right lower extremity from the knee to the groin and was of good quality. The total bypass time was 74 minutes, cross-clamp time 44 minutes, intentional hypothermia of 34.2 degrees centigrade. DESCRIPTION OF OPERATION: After obtaining informed operative consent from the patient, he was taken to the operating room where a satisfactory general endotracheal anesthetic was induced. Appropriate monitor lines were placed, and the patient's chest, abdomen, and lower extremities were prepped and draped in a sterile fashion. The greater saphenous vein was harvested endoscopically from the right lower extremity from the knee to the groin. The vein was removed, distended, and found to be of good quality. The subcutaneous tissue and skin edges were reapproximated running Vicryl sutures. Simultaneously, a standard median sternotomy incision was made and the sternum divided. The KATZ was taken down from its bed and side branches divided between hemoclips. The sternum was the pericardium opened and reflected laterally. The aorta was of normal size and found to be somewhat thickened, but without obvious calcifications. The patient was prepared for cannulation by placing pursestring sutures the distal ascending aorta, mid-ascending aorta, and right atrial appendage. The patient was heparinized and when the ACT was greater than 200 seconds, the distal ascending aorta was cannulated followed by placement of a dual stage venous cannula through the right atrial appendage and into the inferior vena cava. A stab-and antegrade metabolic cannula was placed in the mid-ascending aorta. The patient was placed on bypass and the temperature allowed to drift to 34.2 degrees centigrade. The distal targets were identified and the aorta was crossclamped. The patient received 700 mL of cold antegrade crystalloid cardioplegia through the aortic root and the patient's heart obtained rapid diastolic arrest. The PDA was opened past the midportion because of proximal plaque and the vein was anastomosed in an end-to-side fashion using running 7-0 Prolene suture. Anastomosis found to be hemostatic. This processes and repeated for the OM2 branch. The anastomosis found to be hemostatic and the patient received a notice of cold antegrade crystalloid cardioplegia through the aortic root. The OM1 branch was evaluated and found to have lateral plaque throughout most of its course. A soft area in the proximal portion was opened the [place] blade and the vein was opened longitudinal fashion so the [id number]-[id number] anastomosis could be made using running 7-0 Prolene suture. The anastomosis found to be hemostatic. The LAD was opened with a [place] blade and the KATZ was anastomosed in an end-to-side fashion to the LAD using running 7-0 Prolene suture. The anastomosis found to be hemostatic and the mammary pedicle was tacked to the epicardium using interrupted 5-0 silk suture. Rewarming was begun during this anastomosis. The aortic cross-clamp was released and the heart distended. The veins were measured cut appropriate lengths. A partial occluding clamps placed across the mid-ascending aorta and the antegrade cardioplegia cannula was removed. An additional aortotomy site was made 11 blade and both sites were enlarged with a 4 mm punch. The veins were anastomosed in an end-to-side fashion to the aorta using 5-0 Prolene suture. The vein grafts were occluded with bulldog clamps and de-aired the 25-gauge needle prior to removing the partial occluding clamp. The proximal and distal anastomoses were marked found to be hemostatic and the proximal anastomoses were marked with radiopaque loops. Two right ventricular temporary epicardial pacing lesion placed, and 3 chest tubes were placed, 2 in the mediastinum and one into the left pleural space. During rewarming the patient's heart regained normal sinus rhythm spontaneously. When the patient's systemic temperature reached 36 degrees centigrade, he was ventilated and received volume. He was weaned from bypass required no inotropic support. Metamucil administered and the aortic and venous cannulae were removed. The pursestring sutures were secured. The pericardium was loosely approximated in midline using interrupted 0 silk suture and the sternum was reapproximated sternal wires. The pectoralis major fascia, rectus abdominis fascia, subcutaneous tissue, and skin edges were reapproximated using running Vicryl sutures. Sterile dressings were applied. The patient was transferred to the ICU in satisfactory postoperative condition. Were no intraoperative complications, and the instrument, needle, and sponge count were correct at end of operation. - Open Heart Detail JAIRON (Internal Mammary Artery) Usage: Yes Cardiopulmonary Bypass Time (mins): 74 Aortic Cross Clamp Time (mins): 44 Intentional Hypothermia Temperature (C.): 34.2
[2018-12-05] MEDS ORDERED: Ondansetron 4 MG/2 ML VIAL IVP PRN (11:53)
[2018-12-05] MEDS ORDERED: Acetaminophen 325 MG TABLET PO PRN (11:53)
[2018-12-05] MEDS ORDERED: Naloxone 0.4 MG/ML INJ IVP PRN (11:53)
[2018-12-05] MEDS ORDERED: Acetaminophen 650 MG RECTAL SUPP RC PRN (11:53)
[2018-12-05] MEDS ORDERED: Calcium Gluconate 1gm/50mL 1 GM/50 ML BAG IVPB PRN (11:53)
[2018-12-05] MEDS ORDERED: Insulin Human Regular 100 UNIT in 0.9 % Sodium Chloride 100 ML IVC SCH (12:00)
[2018-12-05 12:07] LABS: ABG Base Excess -4 mEq/L (-2 to 3); ABG HCO3 21 mEq/L (21-27); ABG Oxygen Saturation 95 % (95-98); ABG PCO2 37 mmHg (35-45); ABG PH 7.36 pH Units (7.32-7.45); ABG PO2 79 mmHg (85-104); ABG TCO2 22 mEq/L (20-26); Blood Gas Modality VC; Blood Gas PEEP 5 cm H2O; Blood Gas VT 600 cc
[2018-12-05 12:18] LABS: Basophils % 0.3 %
[2018-12-05 12:20] LABS: Eosinophils # 0.1 K/mcL (0.0-0.6); Eosinophils % 0.8 %; Hematocrit 29.3 % (37.5-50.1); Hemoglobin 9.8 g/dL (12.9-16.9); Immature Granulocytes % 1.6 % (0-4); Immature Platelets 3.8 % (1.1-6.1); Lymphocytes # 1.7 K/mcL (0.6-4.6); Mean Corpuscular HGB Conc 33.4 g/dL (31.6-35.5); Mean Corpuscular Hemoglobin 29.7 pg (28.0-33.3); Mean Corpuscular Volume 88.8 fL (83.0-100.0); Mean Platelet Volume 11.5 fL (9.4-12.4); Monocytes # 1.3 K/mcL (0.0-1.3); Monocytes % 11.1 %; Red Cell Distribution Width 15.5 % (11.5-14.5); Segmented Neutrophils % 71.2 %
[2018-12-05] MEDS: *HR* FentaNYL (PF) 100 MCG/2 ML VIAL IVP PRN ×4 (12:27→23:18)
[2018-12-05] MEDS: Heparin 25,000 UNIT/250 ML D5W 25,000 UNIT/250 ML IV.SOLN IVC SCH ×2 (12:32→22:14)
[2018-12-05] MEDS: Insulin LISPRO 300 UNITS/3 ML VIAL SQ SCH ×3 (12:32→13:54)
[2018-12-05 12:37] LABS: INR 1.3
[2018-12-05] MEDS: Metoclopramide 10 MG/2 ML VIAL IVP SCH ×3 (12:37→23:18)
[2018-12-05] MEDS: 0.9 % Sodium Chloride 1,000 ML IVC SCH (12:37)
[2018-12-05 12:38] LABS: Calcium 8.1 mg/dL (8.6-10.3); Magnesium 1.8 mg/dL (1.6-2.6); Potassium 4.2 mEq/L (3.5-5.1)
[2018-12-05 12:39] LABS: Activated Partial Thrombo Time 29.6 Seconds (26.0-36.0)
[2018-12-05] MEDS: amLODIPine 5 MG TABLET PO SCH (12:45)
[2018-12-05] MEDS: Cholecalciferol (D-3) 1,000 UNIT (25MCG) TABLET PO SCH (12:45)
[2018-12-05] MEDS: Finasteride 5 MG TABLET PO SCH (12:45)
[2018-12-05 12:46] LABS: Prothrombin Time 14.7 Seconds (9.4-12.1)
[2018-12-05] MEDS: niCARdipine 20 MG in 0.9 % Sodium Chloride 192 ML IVC SCH ×3 (12:54→20:30)
[2018-12-05] MEDS: Norepinephrine 4 MG in D5% in Water 250 ML IVC SCH (13:02)
[2018-12-05 13:20] LABS: Neutrophils # 8.3 K/mcL (1.6-8.9); Platelet Count 79 K/mcL (140-400)
[2018-12-05 13:25] LABS: White Blood Count 11.6 K/mcL (4.3-11.1)
[2018-12-05 13:27] LABS: Acanthocytes 1+ (Not Present); Platelet Estimate Decreased (Normal); Poikilocytosis 1+ (Not Present)
--- NOTE | 2018-12-05 13:39 | Nephrology Consult Note ---
Date of Encounter: 12/05/18 Time of Encounter: 13:39 Assessment and Plan (1) Chronic kidney disease Current Visit: No Status: Chronic Has known CKD III with Dr. Doss. Uop noted at 900 cc yesterday and 300 for today. CK added to previous labs. Retroperitoneal US ordered. UA ordered. Strict I/O. Daily weights. Avoid nephrotoxins and renal dose all medications. Qualifiers: Chronic kidney disease stage: stage 3 (moderate) Qualified Code(s): N18.3 - Chronic kidney disease, stage 3 (moderate) (2) CAD (coronary artery disease) Current Visit: Yes Status: Acute Per Cardiothoracic surgery. Qualifiers: Coronary Disease-Associated Artery/Lesion type: [place] artery [place] vs. t ransplanted heart: [place] heart Associated angina: with unstable angina Qualified Code(s): I25.110 - Atherosclerotic heart disease of [place] coronary artery with unstable angina pectoris (3) Hypertension Current Visit: Yes Status: Chronic 160/72, titrating with OHS postoperative orders. Qualifiers: Hypertension type: essential hypertension Qualified Code(s): I10 - Essential (primary) hypertension (4) Diabetes mellitus, type II, insulin dependent Current Visit: No Status: Chronic Per primary. History of Present Illness - Reason for Consult Consult date: 12/05/18 Chronic Kidney Disease Requesting physician: Yeni Mccord - Chief Complaint CKD - History of Present Illness Mr. Coughlin is a 88 year old male who had open heart surgery on 12/05/18. PMH: DM, HLD, CKD III, and HTN. The patient was experiencing throat pain radiating to upper chest with exertion and was referred to Dr. Mccord. He was found to have severe 3 vessel disease and referred for OHS. He had OHS on 12/05/18. The patient is still under anesthesia and there is no family at bedside. Most information obtained from EMR and previous records. He has CKD III and is followed by Dr. Doss. Unsure of when his last office visit was. Per EMR baseline appears to be 35-40. ROS unobtainable due to mentation. Lives at home with . Unsure of ETOH, illicit drug use, or tobacco. Unsure of FH. 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 - Social History Smoking Status: Former smoker Packs per day: < 1PPD x 8YRS (quit smoking 58 years ago) Smokeless Tobacco Status: No Alcohol use: occasionally Drug use: none - Family History Mother Living Status: Medications and Allergies RX: Aspirin Enteric Coated [Aspirin EC] 81 mg PO QPM 10/30/15 [History] RX: Cholecalciferol (D-3) [Vitamin D] 1,000 unit PO QAM 10/30/15 [History] RX: Insulin ASPART [Novolog Flexpen] 4 - 10 unit SQ TID 10/30/15 [History] RX: Nitroglycerin [Nitrostat] 0.4 mg SL AD PRN 10/30/15 [History] Denosumab [Prolia (For Outpatient Infusion)] 60 mg SQ [id number] 12/03/18 [History] Finasteride [Proscar] 5 mg PO DAILY 12/03/18 [History] Insulin Degludec [Tresiba Flextouch U-200] 12 unit SQ QAM 12/03/18 [History] Metoprolol Succinate [Toprol Xl] 25 mg PO DAILY 12/03/18 [History] RX: Lisinopril 2.5 mg PO QAM 12/03/18 [History] Rosuvastatin [Crestor] 20 mg PO HS 12/03/18 [History] Amlodipine Besylate 10 mg PO DAILY 12/04/18 [History] Ferrous Sulfate 325 mg PO BID 12/04/18 [History] RX: Tamsulosin HCl [Flomax] 0.4 mg PO DAILY 12/04/18 [History] Allergy/AdvReac Type Severity Reaction Status Date / Time No Known Allergies Allergy Verified 12/04/18 19:46 Review of Systems ROS unobtainable: due to endotracheal tube Exam - Vital Signs Vital signs: Initial Vital Signs Temp Pulse Resp BP Pulse Ox 98.4 F 64 16 184/82 97 12/03/18 10:38 12/03/18 10:38 12/03/18 10:38 12/03/18 10:38 12/03/18 10:38 Intake and Output 0712/05/18 12/05/18 23:59 07:59 15:59 Intake Total 69 / 2135 93.5 / 115.8 22.3 / 115.8 Output Total 200 / 900 800 / 800 Balance -131 / 1235 93.5 / -684.2 -777.7 / -684.2 Intake: IV Fluids 69 / 2135 93.5 / 115.8 22.3 / 115.8 Heparin 25,000 UNIT/250 ML D5W 69 / 135 93.5 / 93.5 25,000 unit In 250 ml @ 12 UNIT /KG/HR 8.832 mls/hr IVC .Q24H DANIELLE Rx#:[id number] HumuLIN R 100 UNIT In 0.9 % 2.3 / 2.3 Sodium Chloride 100 ML @ 1 UNIT /HR 1.01 mls/hr IVC CONT DANIELLE Rx #:[id number] Nitroglycerin Premix 25 MG/250 0 / 0 ML 25 mg In 250 ml @ 0.5 MCG/KG /MIN 23.695 mls/hr IVC .[id number] DANIELLE Rx#:[id number] Ancef Syringe 2,000 MG/20 ML 2, 20 / 20 000 mg In 20 ml @ 200 mls/hr IVPB PREOP ONE Rx#:[id number] Oral 0 / 0 0 / 0 Output: Urine 200 / 900 Estimated Blood Loss 500 / 500 Urine Amount (Catheter) 300 / 300 Other: Weight 78.982 kg Blood Glucose* 206 235 152 - General Appearance General appearance: well-developed, well-nourished EENT: ATNC, hearing intact, vision intact Neck: supple Respiratory: clear Cardiology: no edema, normal S1, normal S2 Gastrointestinal: normoactive bowel sounds, no tenderness, no guarding Integumentary: no rash, warm and dry Neurologic: alert and oriented x3, reflexes 2+ and symmetric Musculoskeletal: no deformities, no erythema Psychiatric: mood/affect appropriate, cooperative Results - Lab Results 12/05/18 12:03 12/05/18 12:03 Most recent lab results 12/05/18 12/05/18 12/05/18 05:36 09:10 10:29 ABG pH 7.28 L 7.39 ABG pCO2 39 37 ABG pO2 152 H 476 H D ABG HCO3 19 L 23 ABG O2 Saturation 99 H 100 H Calcium 8.3 L Magnesium 12/05/18 12/05/18 12/05/18 11:18 12:03 12:03 ABG pH 7.38 7.36 ABG pCO2 34 L 37 ABG pO2 103 D 79 L ABG HCO3 20 L 21 ABG O2 Saturation 98 95 Calcium 8.1 L Magnesium 1.8 Consult Discharge Plan - Plan Referrals: [place],Emilee Albarado, [employer] [Primary Care Provider] -
[2018-12-05 14:20] LABS: Bilirubin,Urine Negative (Negative); Blood,Urine Moderate (Negative); Clarity,Urine Clear (Clear); Color,Urine Yellow (Yellow); Glucose,Urine (UA) Normal (Normal); Ketones,Urine Negative (Negative); Leukocyte Esterase,Urine Negative (Negative); Nitrite,Urine Negative (Negative); Protein,Urine 30 mg/dL (Neg-Trace); Specific Gravity,Urine 1.028 (1.010-1.025); Urobilinogen,Urine Normal (Normal)
[2018-12-05 14:27] LABS: Bacteria,Urine None Seen per hpf (None-Few); Hyaline Casts,Urine None Seen per lpf (None-Few); RBC,Urine 15-30 per hpf (0-3); Squamous Epithelial Cell,Urine Few per lpf (None-Few); WBC,Urine 0-3 per hpf (0-3)
--- NOTE | 2018-12-05 15:46 | Electrocardiograph Report ---
[address] [address] Test Date: 2018-12-05 Pat Name: Erik Coughlin Department: 112 Room: [facility] Gender: M Manager Lpn: : 1930 Requested By: Canelo Verma Order Number: [id number] Reading MD: Shekhar Valencia Measurements Intervals [place] Rate: 69 P: 60 ME: 205 QRS: -14 QRSD: 105 T: 30 QT: 382 QTc: 401 Interpretive Statements SINUS RHYTHM LEFT VENTRICULAR HYPERTROPHY AND ST-T CHANGE Electronically Signed On 12-05-2018 15:44:35 EDT by Shekhar Valencia
--- NOTE | 2018-12-05 15:55 | Electrocardiograph Report ---
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
[2018-12-05 16:22] LABS: VBG HCO3 20 mEq/L (21-27); VBG PCO2 39 mmHg (41-51); VBG PH 7.32 pH Units (7.32-7.42); VBG PO2 54 mmHg (25-50)
[2018-12-05 16:30] LABS: ABG Base Excess -6 mEq/L (-2 to 3); ABG HCO3 17 mEq/L (21-27); ABG Oxygen Saturation 99 % (95-98); ABG PCO2 25 mmHg (35-45); ABG PH 7.45 pH Units (7.32-7.45); ABG PO2 109 mmHg (85-104); ABG TCO2 18 mEq/L (20-26); Blood Gas Modality VC; Blood Gas PEEP 5 cm H2O; Blood Gas VT 600 cc
[2018-12-05 18:45] LABS: ABG Base Excess -8 mEq/L (-2 to 3); ABG HCO3 16 mEq/L (21-27); ABG Oxygen Saturation 98 % (95-98); ABG PCO2 27 mmHg (35-45); ABG PH 7.38 pH Units (7.32-7.45); ABG PO2 105 mmHg (85-104); ABG TCO2 17 mEq/L (20-26); Blood Gas Modality CPAP/PS; Blood Gas PEEP 5 cm H2O; Blood Gas Pressure Support 5 cm H2O
[2018-12-05] MEDS: *HR* OxyCODONE/APAP 5/325 TABLET PO PRN (19:50)
[2018-12-05 20:11] LABS: ABG Base Excess -4 mEq/L (-2 to 3); ABG HCO3 20 mEq/L (21-27); ABG Oxygen Saturation 96 % (95-98); ABG PCO2 35 mmHg (35-45); ABG PH 7.38 pH Units (7.32-7.45); ABG PO2 80 mmHg (85-104); ABG TCO2 22 mEq/L (20-26)
[2018-12-06] MEDS: niCARdipine 20 MG in 0.9 % Sodium Chloride 192 ML IVC SCH ×8 (00:05→23:08)
[2018-12-06] MEDS: *HR* OxyCODONE/APAP 5/325 TABLET PO PRN ×3 (00:55→21:11)
[2018-12-06 04:11] LABS: INR 1.1; Prothrombin Time 12.1 Seconds (9.4-12.1)
[2018-12-06 04:13] LABS: White Blood Count 14.1 K/mcL (4.3-11.1)
[2018-12-06 04:14] LABS: Basophils % 0.3 %; Eosinophils % 0.1 %; Hemoglobin 10.3 g/dL (12.9-16.9); Immature Granulocytes % 1.4 % (0-4); Lymphocytes % 7.3 %; Mean Corpuscular HGB Conc 33.2 g/dL (31.6-35.5); Mean Corpuscular Hemoglobin 29.6 pg (28.0-33.3); Mean Corpuscular Volume 89.1 fL (83.0-100.0); Mean Platelet Volume 11.1 fL (9.4-12.4); Monocytes # 1.9 K/mcL (0.0-1.3); Monocytes % 13.3 %; Platelet Count 112 K/mcL (140-400); Red Blood Count 3.48 M/mcL (4.19-5.50); Red Cell Distribution Width 16.3 % (11.5-14.5); Segmented Neutrophils % 77.6 %
[2018-12-06 04:15] LABS: Activated Partial Thrombo Time 30.2 Seconds (26.0-36.0)
[2018-12-06 04:16] LABS: Creatinine,Urine 151 mg/dL; Microalbum/Creatinine Ratio,Ur 244 mcg/mg (Less than 30); Microalbumin,Urine 368 mg/L
[2018-12-06 04:24] LABS: Calcium 7.8 mg/dL (8.6-10.3); Magnesium 2.2 mg/dL (1.6-2.6); Potassium 4.8 mEq/L (3.5-5.1)
[2018-12-06] MEDS: Metoclopramide 10 MG/2 ML VIAL IVP SCH ×2 (05:01→11:47)
[2018-12-06] MEDS: *HR* FentaNYL (PF) 100 MCG/2 ML VIAL IVP PRN (05:26)
[2018-12-06] MEDS: Insulin LISPRO 300 UNITS/3 ML VIAL SQ SCH ×4 (05:33→19:19)
--- NOTE | 2018-12-06 05:34 | Cardiothoracic Progress Note ---
Date of Encounter: 12/06/18 Time of Encounter: 05:28 - Assessment and plan (1) CAD (coronary artery disease) Current Visit: Yes Status: Acute The patient is recovering well from his CABG4. He is currently extubated and breathing comfortably. He is sitting in a chair without difficulty. The arterial line and [place] catheter be removed. The patient will remain in the ICU for close monitoring today. The assessment and plan as outlined above was discussed with the patient and/or family members who expressed understanding and agreement. All questions were answered. Qualifiers: Coronary Disease-Associated Artery/Lesion type: [place] artery [place] vs. transplanted heart: [place] heart Associated angina: with unstable angina Qualified Code(s): I25.110 - Atherosclerotic heart disease of [place] coronary artery with unstable angina pectoris - Subjective Procedure(s) Performed: POD#1 S/P CABG4 Interval history: The patient remained hemodynamically stable overnight. He is currently extubated and breathing comfortably. He is sitting in a chair without difficulty. He has no complaints. Vital Signs, Last 4 Hours Temp Pulse Resp BP Pulse Ox 12/06/18 05:00 84 16 164/66 97 12/06/18 04:00 98.8 F 78 16 133/56 97 12/06/18 03:36 16 100 12/06/18 03:06 76 12/06/18 03:00 76 14 138/62 99 12/06/18 02:00 77 12 141/60 99 Oxgyen Flow Rate Oxygen Flow Rate (LPM) 3 Clinical Data, last 8 Hours Output, Chest Tube Drainage 30 Amount [Mediastinal #1] Output, Chest Tube Drainage 0 Amount [Mediastinal #1] Output, Chest Tube Drainage 10 Amount [Mediastinal #1] Output, Chest Tube Drainage 0 Amount [Mediastinal #1] Output, Chest Tube Drainage 15 Amount [Mediastinal #1] Output, Chest Tube Drainage 15 Amount [Mediastinal #1] Output, Chest Tube Drainage 15 Amount [Mediastinal #1] Output, Chest Tube Drainage 25 Amount [Mediastinal #1] Output, Chest Tube Drainage 10 Amount [Mediastinal #2] Output, Chest Tube Drainage 0 Amount [Mediastinal #2] Output, Chest Tube Drainage 15 Amount [Mediastinal #2] Output, Chest Tube Drainage 0 Amount [Mediastinal #2] Output, Chest Tube Drainage 5 Amount [Mediastinal #2] Output, Chest Tube Drainage 5 Amount [Mediastinal #2] Output, Chest Tube Drainage 0 Amount [Mediastinal #2] Output, Chest Tube Drainage 5 Amount [Mediastinal #2] Weight 12/04/18 12/05/18 12/06/18 23:59 23:59 23:59 Weight 78.982 kg - Physical Examination General: Conversant, No Apparent Distress Neck: No JVD, Normal carotid pulses Cardiac: Reg Rate and Rhythm, Normal S1 and S2, No Murmur Incision: No signs of infection, Dry/intact dressing Sternum: Stable Chest tubes: Minimal drainage, Other (No air leak) Pacing Wires: In place Lungs: Normal Breath Sounds, No Wheeze, Rales, Rhonchi Neuro: Alert and responsive, No focal deficits noted Vascular: Normal capillary refill Extremities: No Clubbing, No Cyanosis, No Edema - Labs 12/06/18 03:58 12/06/18 03:58 Lab Results, Last 24 hours 12/05/18 12/05/18 12/05/18 05:36 12:03 12:03 WBC 11.6 H D Hgb 9.8 L Hct 29.3 L Plt Count 79 L INR 1.3 APTT 29.6 Sodium 134 L Potassium 4.6 Chloride 110 H Carbon Dioxide 18 L BUN 24 H Creatinine 1.90 H Glucose 223 H Calcium 8.3 L Magnesium 12/05/18 12/06/18 12/06/18 12:03 03:58 03:58 WBC 14.1 H Hgb 10.3 L Hct 31.0 L Plt Count 112 L INR 1.1 APTT 30.2 Sodium 139 Potassium 4.2 Chloride 112 H Carbon Dioxide 23 BUN 19 Creatinine 1.53 H Glucose 141 H Calcium 8.1 L Magnesium 1.8 12/06/18 03:58 WBC Hgb Hct Plt Count INR APTT Sodium 137 Potassium 4.8 Chloride 112 H Carbon Dioxide 19 L BUN 23 Creatinine 2.11 H Glucose 128 H Calcium 7.8 L Magnesium 2.2 - VTE Documentation of Mechanical Device: Graduated compression elastic hosiery Consult Discharge Plan - Plan Referrals: Emilee Conrad CNP [Primary Care Provider] -
[2018-12-06] MEDS ORDERED: *HR* Dextrose 50 % in Water (Syg) 50 ML SYRINGE IVP PRN ×2 (05:40→11:19)
[2018-12-06] MEDS ORDERED: D5% in Water 1,000 ML IVC PRN ×2 (05:40→11:19)
[2018-12-06] MEDS ORDERED: Dextrose Gel 15 GM/37.5 ML TUBE PO PRN ×4 (05:40→11:19)
[2018-12-06] MEDS: Cholecalciferol (D-3) 1,000 UNIT (25MCG) TABLET PO SCH (07:45)
[2018-12-06] MEDS: Finasteride 5 MG TABLET PO SCH (07:45)
[2018-12-06] MEDS: *HR* Heparin 5,000 UNIT/ML VIAL SQ SCH ×2 (07:46→17:29)
[2018-12-06] MEDS: Aspirin Enteric Coated 81 MG Tablet PO SCH (07:46)
[2018-12-06] MEDS: Pantoprazole 40 MG VIAL IVP SCH (07:46)
[2018-12-06] MEDS: Chlorhexidine Rinse 15 ML MOUTHWASH MM SCH ×2 (07:46→19:17)
[2018-12-06] MEDS: Nitroglycerin 25 MG/250 ML INFUS..BTL IVC SCH ×2 (07:47→19:12)
[2018-12-06] MEDS ORDERED: Furosemide 20 MG/2 ML VIAL IVP SCH (08:00)
[2018-12-06 08:37] LABS: Mixed Venous Blood pCO2 42 mmHg (44-46); Mixed Venous Blood pH 7.31 pH Units (7.34-7.36); Mixed Venous Blood pO2 48 mmHg (35-45)
[2018-12-06 08:41] LABS: Mixed Venous Blood O2 Hgb 85.5 % (60-80)
[2018-12-06] MEDS: 0.9 % Sodium Chloride 1,000 ML IVC SCH (10:36)
[2018-12-06] MEDS: Norepinephrine 4 MG in D5% in Water 250 ML IVC SCH (11:18)
--- NOTE | 2018-12-06 11:21 | Nephrology Progress Note ---
Date of Encounter: 12/06/18 Time of Encounter: 11:18 - Assessment and Plan (1) Chronic kidney disease Current Visit: No Status: Chronic Has known CKD III with Dr. Doss. GFR is 30 today, down slightly but stable for patient. Uop noted at 820 yesterday and 700 for today. Retroperitoneal US unremarkable. UA + for protein, blood. Micralb/Creat Ratio 244. Strict I/O. Daily weights. Avoid nephrotoxins and renal dose all medications. Continue IVF. Qualifiers: Chronic kidney disease stage: stage 3 (moderate) Qualified Code(s): N18.3 - Chronic kidney disease, stage 3 (moderate) (2) CAD (coronary artery disease) Current Visit: Yes Status: Acute Per Cardiothoracic surgery. Qualifiers: Coronary Disease-Associated Artery/Lesion type: [place] artery [place] vs. transplanted heart: [place] heart Associated angina: with unstable angina Qualified Code(s): I25.110 - Atherosclerotic heart disease of [place] coronary artery with unstable angina pectoris (3) Hypertension Current Visit: Yes Status: Chronic 160/72, titrating with OHS postoperative orders. Qualifiers: Hypertension type: essential hypertension Qualified Code(s): I10 - Essential (primary) hypertension (4) Diabetes mellitus, type II, insulin dependent Current Visit: No Status: Chronic Per primary. Subjective Principal diagnosis: CAD Interval history: Pt seen and examined. Is doing well. Denies chest pain or shortness of breath, still on N/C at 2 liters. Denies nausea, vomiting, diarrhea. Objective - Vital Signs Vital signs: Vital Signs Temp Pulse Resp BP Pulse Ox 12/06/18 10:03 85 18 109/57 97 12/06/18 09:00 94 16 102/65 100 12/06/18 08:00 97.9 F 90 16 113/64 98 12/06/18 07:36 16 99 12/06/18 07:00 80 16 168/63 97 12/06/18 06:00 77 16 114/53 97 12/06/18 05:00 84 16 164/66 97 12/06/18 04:00 98.8 F 78 16 133/56 97 12/06/18 03:36 16 100 12/06/18 03:06 76 12/06/18 03:00 76 14 138/62 99 12/06/18 02:00 77 12 141/60 99 12/06/18 01:00 91 16 154/78 97 12/06/18 00:00 99.1 F 90 16 144/59 97 12/05/18 23:34 16 98 12/05/18 23:29 84 12/05/18 23:00 91 16 170/66 98 12/05/18 22:00 86 16 131/63 98 12/05/18 21:00 84 12 140/57 99 12/05/18 20:00 100.6 F H 89 16 141/59 97 12/05/18 19:24 87 12/05/18 18:50 22 146/63 97 12/05/18 17:10 21 136/64 99 12/05/18 15:55 24 169/65 99 12/05/18 13:45 13 128/52 100 12/05/18 11:44 10 123/53 98 Intake and Output 12/05/18 12/06/18 12/06/18 23:59 07:59 15:59 Intake Total 1052.9 / 1834.7 899.7 / 1899.7 1000 / 1899.7 Output Total 2009 255 / 859 604 / 859 Balance 377.9 / -175.3 644.7 / 1040.7 396 / 1040.7 Intake: IV Fluids 572.9 / 754.7 419.7 / 1419.7 1000 / 1419.7 0.9 % Sodium Chloride 1,000 ML 1000 / 1000 @ 50 mls/hr IVC .Q20H DANIELLE Rx#: [id number] HumuLIN R 100 UNIT In 0.9 % 18.9 / 22.2 4.7 / 4.7 Sodium Chloride 100 ML @ 1 UNIT /HR 1.01 mls/hr IVC CONT DANIELLE Rx #:[id number] Nitroglycerin Premix 25 MG/250 250 / 250 250 / 250 ML 25 mg In 250 ml @ 0.5 MCG/KG /MIN 23.695 mls/hr IVC .[id number] DANIELLE Rx#:[id number] Cardene 20 MG In 0.9 % Sodium 0 / 65 165 / 165 Chloride 192 ML @ 5 MG/HR 50 mls/hr IVC .Q4H DANIELLE Rx#: [id number] Magnesium Sulfate 2 GM In 0.9 % 104 / 104 Sodium Chloride 100 ML @ 104 mls/hr IVPB Q5H PRN Rx#: [id number] Ancef 2,000 MG In 0.9 % Sodium 200 / 200 Chloride 100 ML @ 200 mls/hr IVPB Q8HR DANIELLE Rx#:[id number] Oral 480 / 480 480 / 480 Output: Catheter 520 / 535 125 / 700 575 / 700 Chest Tube Drainage 155 / 175 130 / 159 29 / 159 Mediastinal #1 80 / 95 90 / 114 24 / 114 Mediastinal #2 75 / 80 40 / 45 5 / 45 Other: Blood Glucose* 109 72 134 - General Appearance General appearance: Present: well-developed, well-nourished EENT: Present: ATNC, hearing intact, vision intact Neck: Present: supple Respiratory: Present: clear Additional Comments: Diminished in the bases. Cardiology: Present: no edema, normal S1, normal S2 Gastrointestinal: Present: normoactive bowel sounds, no tenderness, no guarding Integumentary: Present: no rash, warm and dry Neurologic: Present: alert and oriented x3 Musculoskeletal: Present: no deformities, no erythema Psychiatric: Present: mood/affect appropriate, cooperative - Lab 12/06/18 03:58 12/06/18 03:58 Most recent lab results 12/06/18 12/06/18 03:58 03:58 Calcium 7.8 L Magnesium 2.2 Urine Creatinine 151 - VTE Documentation of Mechanical Device: Graduated compression elastic hosiery Consult Discharge Plan - Plan Referrals: Emilee Conrad ROLLER LEVELER OPERATOR [Primary Care Provider] -
--- NOTE | 2018-12-06 13:35 | Neurology - Consult Note ---
<Rodrigo Rahman Antwon - Last Filed: 12/06/18 13:41> Date of Encounter: 12/06/18 Time of Encounter: 10:00 Assessment and Plan (1) Tremor Current Visit: Yes Status: Acute Patient is postop from CABG yesterday, recovering well and ICU Demonstrated new onset spastic tremor spontaneously this morning Activity occurs in one to 2 second episodes several times per minute Does not appear to be instigated by any particular activity Does not appear to be associated with any other symptoms such as altered mental status Quality of movement is spastic, tremor like muscle spasms, occurring in chest/bilateral upper extremities/neck Patient maintains awareness during episodes, episodes do not affect speech Patient has not had similar symptoms before, does not have seizure history, does not have stroke history Review of labs and medications does not provide convincing etiology Neurological examination including cerebral, cerebellar, cranial nerve, motor, sensory normal Deep tendon reflexes may be slightly hyperreflexic, 3/4 Unclear if cause is central or peripheral, due to timeline must consider this is related to surgery Consider radiculopathy or plexopathy secondary to surgical positioning, or reaction to paralytic Differential includes seizure, upper or lower motor neuron lesion, metabolic deviation Stroke considered, but less likely, no focal deficits or mental status changes EEG, B12, folate, TSH ordered and pending If activity continues or worsens, EKG and labs do not provide answers, consider brain MRI and/or EMG Further recommendations per Dr. Dhaliwal History of Present Illness Chief complaint: twitching HPI: Mr. Coughlin is a 88 year old male with a past medical history of type 2 diabetes, hypertension, carotid artery disease, hyperlipidemia, CK-MB. He was recently referred to cardiology for catheterization secondary to ACS symptoms. He was found to have severe three-vessel disease and was recommended for CABG, which cardiothoracic surgery team agreed to. CABG was performed 12/05 without incident and the patient was transferred to ICU for recovery. There were no acute events overnight and no changes this morning on awakening, when the nurse was helping the patient transition from bed to chair he was noted to have significant twitch/tremor of his neck muscles, chest, upper extremities. This activity was repeated frequently throughout the morning, did not appear to be under the patient's control. Neurology evaluation was requested. On my evaluation while discussing the patient's past history I did notice the exact activity described. It occurred several times per minute, lasted approximately 1-2 seconds. The patient did not appear uncomfortable during these episodes, did not lose consciousness, did not have change in mental status or speech, and overall had no other associated changes other than spastic activity. Patient states he has never experienced this type of spastic activity before, does not have history of seizure or stroke, spastic activity is not painful, and does report any symptoms associated with the spasticity or any other acute complaints. I informed him I was not sure what was causing his symptoms, that we would start with EEG to rule out seizure activity, and proceed with further investigation from there. Patient stated he understood and agreed with the plan of care. 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 - Social History Smoking Status: Former smoker Packs per day: < 1PPD x 8YRS (quit smoking 58 years ago) Smokeless Tobacco Status: No Alcohol use: occasionally Drug use: none - Family History Mother Living Status: Medications and Allergies Aspirin Enteric Coated [Aspirin EC] 81 mg PO QPM 10/30/15 [History] Cholecalciferol (D-3) [Vitamin D] 1,000 unit PO QAM 10/30/15 [History] Insulin ASPART [Novolog Flexpen] 4 - 10 unit SQ TID 10/30/15 [History] Nitroglycerin [Nitrostat] 0.4 mg SL AD PRN 10/30/15 [History] Denosumab [Prolia (For Outpatient Infusion)] 60 mg SQ [id number] 12/03/18 [History] Finasteride [Proscar] 5 mg PO DAILY 12/03/18 [History] Insulin Degludec [Tresiba Flextouch U-200] 12 unit SQ QAM 12/03/18 [History] Lisinopril 2.5 mg PO QAM 12/03/18 [History] Metoprolol Succinate [Toprol Xl] 25 mg PO DAILY 12/03/18 [History] Rosuvastatin [Crestor] 20 mg PO HS 12/03/18 [History] Amlodipine Besylate 10 mg PO DAILY 12/04/18 [History] Ferrous Sulfate 325 mg PO BID 12/04/18 [History] Tamsulosin HCl [Flomax] 0.4 mg PO DAILY 12/04/18 [History] Allergy/AdvReac Type Severity Reaction Status Date / Time No Known Allergies Allergy Verified 12/04/18 19:46 All Systems: The remainder of the systems were reviewed and are negative Review of Systems: 10 point review of systems performed and negative except as otherwise mentioned in history of present illness. Physical Examination - Vital Signs Vital Signs: Initial Vital Signs Temp Pulse Resp BP Pulse Ox 98.4 F 64 16 184/82 97 12/03/18 10:38 12/03/18 10:38 12/03/18 10:38 12/03/18 10:38 12/03/18 10:38 - Exam Exam: Examination: General Examination: *CONSTITUTIONAL: Alert and oriented x3, no acute distress *GENERAL APPEARANCE OF PATIENT appears healthy and well groomed *EYES: pupils equal, round, reactive to light and accommodation, conjunctiva clear without masses or ulcerations *CARDIOVASCULAR: RRR, S1, S2, no mumurs, rubs, or gallops, no peripheral edema *GAIT AND STATION: Not tested, patient is still limited due to short postoperative period *ASSESSMENT OF MUSCLE STRENGTH IN THE UPPER AND LOWER EXTREMITIES bilateral deltoid, bicep, tricep, tower erector strength, hip flexors ,anterior tibialis, dorsoflexion of the foot 5/5 *MUSCLE TONE IN THE UPPER AND LOWER EXTREMITIES is normal except for specific episodes. There were multiple witnessed episodes of spastic tremor- like activity in the muscles of the neck, jaw, chest and bilateral upper extremities. They occurred several times per minute, lasted 1-2 seconds per episode, did not appear to be painful for the patient, were not associated with alteration of mental status or speech. Neurological: *ORIENTATION to person, situation, time and place *LANGUAGE AND FUNCTION no significant aphasia or dysarthia was noted. *FUND OF KNOWLEDGE aware of current events, past history, vocabulary *MENTAL attention span and concentration normal. *CN II visual wood intact *CN III,IV, PERRLA extraocular eye movements were full, no nystagmus and no ptosis noted. *CN V shows normal sensation and jaw opens symmetrically. *CN VII shows normal facial movement symmetrically, upper and lower bilaterally. *CN VIII shows no significant hearing loss on exam *CN IX-X palate elevated symmetrically *CN XI normal strength in the sternocleidomastoid muscles, symmetrical shoulder shrugging. *CN XII tongue protruded in the midline, with normal strength and movemen t. *SENSORY EXAMINATION light touch intact *REFLEXES: deep tendon reflexes were normal and symmetrical , grade 2-3/4 diffusely, no pathological reflexes were noted. *CEREBELLAR TESTING normal finger to nose *PAIN LEVELminimal at surgical site with movement Results - Laboratory Findings CBC and BMP: 12/06/18 03:58 12/06/18 03:58 Abnormal lab findings: Abnormal lab results WBC 14.1 K/mcL (4.3-11.1) H 12/06/18 03:58 RBC 3.48 M/mcL (4.19-5.50) L 12/06/18 03:58 Hgb 10.3 g/dL (12.9-16.9) L 12/06/18 03:58 Hct 31.0 % (37.5-50.1) L 12/06/18 03:58 RDW 16.3 % (11.5-14.5) H 12/06/18 03:58 Plt Count 112 K/mcL (140-400) L 12/06/18 03:58 Neutrophils # 11.0 K/mcL (1.6-8.9) H 12/06/18 03:58 Monocytes # 1.9 K/mcL (0.0-1.3) H 12/06/18 03:58 Platelet Estimate Decreased (Normal) L 12/05/18 12:03 Poikilocytosis 1+ (Not Present) A 12/05/18 12:03 Acanthocytes (Spur) 1+ (Not Present) A 12/05/18 12:03 PT 14.7 Seconds (9.4-12.1) H 12/05/18 12:03 Heparin Anti-Xa, Unfract 0.00 IU/mL (0.30-0.70) L 12/04/18 03:04 ABG pH 7.28 pH Units (7.32-7.45) L 12/05/18 09:10 ABG pCO2 27 mmHg (35-45) L 12/05/18 18:43 ABG pO2 80 mmHg (85-104) L 12/05/18 20:05 ABG HCO3 20 mEq/L (21-27) L 12/05/18 20:05 ABG Total CO2 17 mEq/L (20-26) L 12/05/18 18:43 ABG O2 Saturation 99 % (95-98) H 12/05/18 16:27 ABG Base Excess -4 mEq/L (-2 to 3) L 12/05/18 20:05 ABG Hematocrit 25.0 % (37.5-50.1) L 12/05/18 11:18 ABG Chloride 111 mEq/L (98-107) H 12/05/18 11:18 VBG pCO2 39 mmHg (41-51) L 12/05/18 16:20 VBG pO2 54 mmHg (25-50) H 12/05/18 16:20 VBG HCO3 20 mEq/L (21-27) L 12/05/18 16:20 Mixed VBG pH 7.31 pH Units (7.34-7.36) L 12/05/18 17:58 Mixed VBG pCO2 42 mmHg (44-46) L 12/05/18 17:58 Mixed VBG pO2 48 mmHg (35-45) H 12/05/18 17:58 Mixed VBG Oxyhemoglobin 85.5 % (60-80) H 12/05/18 17:58 Glucose 152 mg/dL (60-95) H 12/05/18 11:18 Sodium 134 mEq/L (136-145) L 12/05/18 05:36 Chloride 112 mEq/L (98-107) H 12/06/18 03:58 Carbon Dioxide 19 mEq/L (23-29) L 12/06/18 03:58 BUN 24 mg/dL (8-23) H 12/05/18 05:36 Creatinine 2.11 mg/dL (0.70-1.30) H 12/06/18 03:58 Est GFR ( Amer) 36 (> 60) L 12/06/18 03:58 Est GFR (Non-Af Amer) 30 (> 60) L 12/06/18 03:58 Glucose 128 mg/dL (70-105) H 12/06/18 03:58 POC Glucose 111 mg/dL (70-99) H 12/06/18 11:49 Hemoglobin A1c 7.6 % (-5.6) H 12/04/18 07:11 Calcium 7.8 mg/dL (8.6-10.3) L 12/06/18 03:58 Albumin 3.0 g/dL (3.5-5.7) L 12/06/18 03:58 Ur Specific [place] 1.028 (1.010-1.025) H 12/05/18 14:05 Urine Protein 30 mg/dL (Neg-Trace) H 12/05/18 14:05 Urine Blood Moderate (Negative) H 12/05/18 14:05 Urine Microscopic RBC 15-30 per hpf (0-3) H 12/05/18 14:05 Microalb/Creat Ratio 244 mcg/mg (Less than 30) H 12/06/18 03:58 Crossmatch See Detail 12/04/18 07:11 Consult Discharge Plan - Plan Referrals: Emilee Conrad CYTOMETRY TECHNOLOGIST [Primary Care Provider] - <Chet Dhaliwal - Last Filed: 12/06/18 16:28> Date of Encounter: 12/06/18 Assessment and Plan (1) Tremor Current Visit: Yes Status: Acute I have personally performed a [id number]-zicv assessment of the patient and have reviewed the PA/SIZE MIXER note. My impressions are as follows: I highly suspect that patient is experiencing some sort of postoperative medication effect perhaps dystonic reaction relative to the metoclopramide, or ondansetron. Symptoms have improved after having been given Benadryl and clonazepam. His EEG was negative. She is not seizure activity. No evidence of a focal neurologic process. No evidence to support a central nervous system inflammatory or infectious process. I will reevaluate tomorrow. Critical care time spent this patient was 50 minutes which consisted of counseling and coordinating care. History of Present Illness HPI: Mr. Coughlin is a 88 year old male chart was reviewed, the patient was seen and examined independently. Case was discussed with Dr. Rahman. I did review the EEG which was normal. Otherwise I agree with the history of present illness as documented above. All Systems: The remainder of the systems were reviewed and are negative Review of Systems: The balance of the systems review is negative. Physical Examination - Vital Signs Vital Signs: Initial Vital Signs Temp Pulse Resp BP Pulse Ox 98.4 F 64 16 184/82 97 12/03/18 10:38 12/03/18 10:38 12/03/18 10:38 12/03/18 10:38 12/03/18 10:38 - Exam Exam: I have personally performed a ctps-uo-jocm assessment of the patient and have reviewed the PA/SIZE MIXER note. My impressions are as follows: I agree with the documentation of the neurologic examination as outlined above. Results - Laboratory Findings CBC and BMP: 12/06/18 03:58 12/06/18 03:58 Abnormal lab findings: Abnormal lab results WBC 14.1 K/mcL (4.3-11.1) H 12/06/18 03:58 RBC 3.48 M/mcL (4.19-5.50) L 12/06/18 03:58 Hgb 10.3 g/dL (12.9-16.9) L 12/06/18 03:58 Hct 31.0 % (37.5-50.1) L 12/06/18 03:58 RDW 16.3 % (11.5-14.5) H 12/06/18 03:58 Plt Count 112 K/mcL (140-400) L 12/06/18 03:58 Neutrophils # 11.0 K/mcL (1.6-8.9) H 12/06/18 03:58 Monocytes # 1.9 K/mcL (0.0-1.3) H 12/06/18 03:58 Platelet Estimate Decreased (Normal) L 12/05/18 12:03 Poikilocytosis 1+ (Not Present) A 12/05/18 12:03 Acanthocytes (Spur) 1+ (Not Present) A 12/05/18 12:03 PT 14.7 Seconds (9.4-12.1) H 12/05/18 12:03 Heparin Anti-Xa, Unfract 0.00 IU/mL (0.30-0.70) L 12/04/18 03:04 ABG pH 7.28 pH Units (7.32-7.45) L 12/05/18 09:10 ABG pCO2 27 mmHg (35-45) L 12/05/18 18:43 ABG pO2 80 mmHg (85-104) L 12/05/18 20:05 ABG HCO3 20 mEq/L (21-27) L 12/05/18 20:05 ABG Total CO2 17 mEq/L (20-26) L 12/05/18 18:43 ABG O2 Saturation 99 % (95-98) H 12/05/18 16:27 ABG Base Excess -4 mEq/L (-2 to 3) L 12/05/18 20:05 ABG Hematocrit 25.0 % (37.5-50.1) L 12/05/18 11:18 ABG Chloride 111 mEq/L (98-107) H 12/05/18 11:18 VBG pCO2 39 mmHg (41-51) L 12/05/18 16:20 VBG pO2 54 mmHg (25-50) H 12/05/18 16:20 VBG HCO3 20 mEq/L (21-27) L 12/05/18 16:20 Mixed VBG pH 7.31 pH Units (7.34-7.36) L 12/05/18 17:58 Mixed VBG pCO2 42 mmHg (44-46) L 12/05/18 17:58 Mixed VBG pO2 48 mmHg (35-45) H 12/05/18 17:58 Mixed VBG Oxyhemoglobin 85.5 % (60-80) H 12/05/18 17:58 Glucose 152 mg/dL (60-95) H 12/05/18 11:18 Sodium 134 mEq/L (136-145) L 12/05/18 05:36 Chloride 112 mEq/L (98-107) H 12/06/18 03:58 Carbon Dioxide 19 mEq/L (23-29) L 12/06/18 03:58 BUN 24 mg/dL (8-23) H 12/05/18 05:36 Creatinine 2.11 mg/dL (0.70-1.30) H 12/06/18 03:58 Est GFR ( Amer) 36 (> 60) L 12/06/18 03:58 Est GFR (Non-Af Amer) 30 (> 60) L 12/06/18 03:58 Glucose 128 mg/dL (70-105) H 12/06/18 03:58 POC Glucose 111 mg/dL (70-99) H 12/06/18 11:49 Hemoglobin A1c 7.6 % (-5.6) H 12/04/18 07:11 Calcium 7.8 mg/dL (8.6-10.3) L 12/06/18 03:58 Albumin 3.0 g/dL (3.5-5.7) L 12/06/18 03:58 Ur Specific [place] 1.028 (1.010-1.025) H 12/05/18 14:05 Urine Protein 30 mg/dL (Neg-Trace) H 12/05/18 14:05 Urine Blood Moderate (Negative) H 12/05/18 14:05 Urine Microscopic RBC 15-30 per hpf (0-3) H 12/05/18 14:05 Microalb/Creat Ratio 244 mcg/mg (Less than 30) H 12/06/18 03:58 Crossmatch See Detail 12/04/18 07:11
[2018-12-06] MEDS: clonazePAM 1 MG TABLET PO SCH ×2 (13:45→19:17)
--- NOTE | 2018-12-06 13:53 | Anesthesia Evaluation Post Op ---
Date of Encounter: 12/06/18 Time of Encounter: 10:00 - Vital Signs Vital Signs: Selected Entries 12/06/18 09:00 Pulse Rate 94 Respiratory Rate 16 Blood Pressure 102/65 O2 Sat by Pulse Oximetry 100 Oxygen Flow Rate (LPM) 3 Oxygen Delivery Method Nasal Cannula - Lungs Lungs: Clear Ascult./Percussion - Airway Airway: Non-obstructed - Cardiovascular Regular Rate - Mental Status Mental Status: Alert & Oriented, Answers Appropriately - Pain Pain Scale: 3 Pain Scale used: Numeric (1 - 10) - Nausea Vomiting Nausea Vomiting: Not Present - Hydration Hydration: Tolerates oral liquids Notes: 12/06/18 13:52 laying comfortable in bed, no drips currently. No apparent anesthesia complications
--- NOTE | 2018-12-06 16:11 | EEG/EMG/Oth Biometrics Report ---
EEG Procedure Report Date of procedure: 12/06/18 EEG Procedure: Routine EEG Procedure Note: This is a report of a 21 channel bipolar and referential montage EEG. A posterior dominant rhythm of 8 Hz low voltage alpha frequencies identified symmetrically in the posterior head regions. This rhythm however is poorly sustained. Hyperventilation is not performed during the recording. Trains of spikey artifactual content are identified intermittently through the duration of the recording. This however does not preclude accurate interpretation of the study. Periods of drowsiness and stage II sleep identified as reference by dropout of the posterior dominant rhythm and emergence of vertex activity K complexes, and sleep spindles. Photic stimulations performed and does not produce a driving response. The EKG rhythm strip reveals normal sinus rhythm at 84 bpm. Impressions: This EEG recording is within normal limits. There is no evidence of epileptiform activity identified during the study. Please correlate clinically.
[2018-12-06 16:56] LABS: Folate 12.7 ng/mL (3.0-16.0)
[2018-12-07] MEDS: Nitroglycerin 25 MG/250 ML INFUS..BTL IVC SCH (03:11)
[2018-12-07 03:47] LABS: Basophils % 0.2 %; Eosinophils % 0.3 %; Hematocrit 28.8 % (37.5-50.1); Hemoglobin 9.4 g/dL (12.9-16.9); Immature Granulocytes % 1.2 % (0-4); Immature Platelets 6.9 % (1.1-6.1); Lymphocytes # 1.5 K/mcL (0.6-4.6); Lymphocytes % 11.1 %; Mean Corpuscular HGB Conc 32.6 g/dL (31.6-35.5); Mean Corpuscular Hemoglobin 29.7 pg (28.0-33.3); Mean Corpuscular Volume 91.1 fL (83.0-100.0); Mean Platelet Volume 10.9 fL (9.4-12.4); Monocytes # 2.1 K/mcL (0.0-1.3); Monocytes % 15.5 %; Neutrophils # 9.5 K/mcL (1.6-8.9); Red Blood Count 3.16 M/mcL (4.19-5.50); Red Cell Distribution Width 16.4 % (11.5-14.5); Segmented Neutrophils % 71.7 %; White Blood Count 13.2 K/mcL (4.3-11.1)
[2018-12-07 03:49] LABS: Platelet Count 91 K/mcL (140-400)
[2018-12-07 04:03] LABS: Calcium 7.5 mg/dL (8.6-10.3); Potassium 4.8 mEq/L (3.5-5.1)
[2018-12-07] MEDS: *HR* Heparin 5,000 UNIT/ML VIAL SQ SCH ×2 (05:03→17:22)
[2018-12-07] MEDS: 0.9 % Sodium Chloride 1,000 ML IVC SCH ×2 (06:00→09:30)
[2018-12-07] MEDS: Insulin LISPRO 300 UNITS/3 ML VIAL SQ SCH ×4 (07:52→20:47)
[2018-12-07] MEDS: Chlorhexidine Rinse 15 ML MOUTHWASH MM SCH ×2 (07:53→20:47)
[2018-12-07] MEDS: niCARdipine 20 MG in 0.9 % Sodium Chloride 192 ML IVC SCH (07:53)
--- NOTE | 2018-12-07 09:00 | Cardiothoracic Progress Note ---
Date of Encounter: 12/07/18 Time of Encounter: 08:58 - Assessment and plan (1) CAD (coronary artery disease) Current Visit: Yes Status: Acute The assessment and plan as outlined above was discussed with the patient and/or family members who expressed understanding and agreement. All questions were answered. We will discontinue the Benz catheter. We will consult speech therapy for a swallowing evaluation. We will leave the patient in the ICU today. Qualifiers: Coronary Disease-Associated Artery/Lesion type: [place] artery [place] vs. transplanted heart: [place] heart Associated angina: with unstable angina Qualified Code(s): I25.110 - Atherosclerotic heart disease of [place] coronary artery with unstable angina pectoris - Subjective Interval history: The patient states that his twitching is gone. He also states that he is able to urinate without difficulty without a Benz catheter. Vital Signs, Last 4 Hours Temp Pulse Resp BP Pulse Ox 12/07/18 07:07 18 100 12/07/18 07:00 100.1 F H 89 16 128/61 95 12/07/18 06:00 75 18 115/66 99 12/07/18 05:00 82 17 133/62 97 Oxgyen Flow Rate Oxygen Flow Rate (LPM) 3 Clinical Data, last 8 Hours Output, Chest Tube Drainage 30 Amount [Mediastinal #1] Output, Chest Tube Drainage 15 Amount [Mediastinal #1] Output, Chest Tube Drainage 0 Amount [Mediastinal #2] Weight 12/05/18 12/06/18 12/07/18 23:59 23:59 23:59 Weight 83.7 kg Lungs are clear to percussion and auscultation. Heart is in a normal sinus rh ythm. All incisions are healing well without signs of infection and the sternum is stable. Chest tube drainage is minimal and there is no air leak. The chest tubes were removed, but the pacing wires were left in. - Labs 12/07/18 03:30 12/07/18 03:30 Lab Results, Last 24 hours 12/06/18 12/07/18 12/07/18 15:55 03:30 03:30 WBC 13.2 H Hgb 9.4 L Hct 28.8 L Plt Count 91 L Sodium 139 Potassium 4.8 Chloride 104 Carbon Dioxide 20 L BUN 29 H Creatinine 2.34 H Glucose 107 H Calcium 7.5 L TSH 2.844 - VTE Documentation of Mechanical Device: Graduated compression elastic hosiery Consult Discharge Plan - Plan Referrals: Emilee Conrad CNP [Primary Care Provider] -
--- NOTE | 2018-12-07 09:03 | Neurology Progress Note ---
<Rodrigo Rahman Antwon - Last Filed: 12/07/18 10:44> Date of Encounter: 12/07/18 Time of Encounter: 09:03 Assessment and Plan (1) Tremor Current Visit: Yes Status: Resolved Patient was having spastic tremors yesterday postop Symptoms have since resolved with Benadryl, clonazepam, time Suspect symptoms were secondary to medication effect such as metoclopramide or ondansetron He was receiving normal doses of these medications however he was in acute kidney injury which could impede clearance Now his symptoms have resolved the Benadryl and clonazepam is when necessary, however I suspect he has now cleared the offending agents I do not anticipate any further neurology workup or intervention Further recommendations per Dr. Dhaliwal Subjective Principal diagnosis: CAD Interval history: No acute events overnight, patient's symptoms of spastic tremor have resolved. He has no acute complaints this morning. Objective - Constitutional Vitals: Temp Pulse Resp BP Pulse Ox 100.1 F H 89 18 128/61 100 12/07/18 07:00 12/07/18 07:00 12/07/18 07:07 12/07/18 07:00 12/07/18 07:07 Exam: General Examination: *CONSTITUTIONAL: Alert and oriented x3, no acute distress *GENERAL APPEARANCE OF PATIENT appears healthy and well groomed *EYES: pupils equal, round, reactive to light and accommodation, conjunctiva clear without masses or ulcerations *CARDIOVASCULAR: RRR, S1, S2, no mumurs, rubs, or gallops, no peripheral edema *GAIT AND STATION: Not tested, patient is still limited due to short postoperative period *ASSESSMENT OF MUSCLE STRENGTH IN THE UPPER AND LOWER EXTREMITIES bilateral deltoid, bicep, tricep, commercial collector strength, hip flexors ,anterior tibialis, dorsoflexion of the foot 5/5 *MUSCLE TONE IN THE UPPER AND LOWER EXTREMITIES is normal Neurological: *ORIENTATION to person, situation, time and place *LANGUAGE AND FUNCTION no significant aphasia or dysarthia was noted. *FUND OF KNOWLEDGE aware of current events, past history, vocabulary *MENTAL attention span and concentration normal. *CN II visual wood intact *CN III,IV, PERRLA extraocular eye movements were full, no nystagmus and no ptosis noted. *CN V shows normal sensation and jaw opens symmetrically. *CN VII shows normal facial movement symmetrically, upper and lower bilaterally. *CN VIII shows no significant hearing loss on exam *CN IX-X palate elevated symmetrically *CN XI normal strength in the sternocleidomastoid muscles, symmetrical shoulder shrugging. *CN XII tongue protruded in the midline, with normal strength and movement. *SENSORY EXAMINATION light touch intact *REFLEXES: deep tendon reflexes were normal and symmetrical , grade 2-/4 diffusely, no pathological reflexes were noted. *CEREBELLAR TESTING normal finger to nose *PAIN LEVELminimal at surgical site with movement - VTE Documentation of Mechanical Device: Graduated compression elastic hosiery Results - Laboratory Findings CBC and BMP: 12/07/18 03:30 12/07/18 03:30 Abnormal lab findings: Abnormal lab results WBC 13.2 K/mcL (4.3-11.1) H 12/07/18 03:30 RBC 3.16 M/mcL (4.19-5.50) L 12/07/18 03:30 Hgb 9.4 g/dL (12.9-16.9) L 12/07/18 03:30 Hct 28.8 % (37.5-50.1) L 12/07/18 03:30 RDW 16.4 % (11.5-14.5) H 12/07/18 03:30 Plt Count 91 K/mcL (140-400) L 12/07/18 03:30 Neutrophils # 9.5 K/mcL (1.6-8.9) H 12/07/18 03:30 Monocytes # 2.1 K/mcL (0.0-1.3) H 12/07/18 03:30 Platelet Estimate Decreased (Normal) L 12/05/18 12:03 Immature Plt Fraction 6.9 % (1.1-6.1) H 12/07/18 03:30 Poikilocytosis 1+ (Not Present) A 12/05/18 12:03 Acanthocytes (Spur) 1+ (Not Present) A 12/05/18 12:03 PT 14.7 Seconds (9.4-12.1) H 12/05/18 12:03 Heparin Anti-Xa, Unfract 0.00 IU/mL (0.30-0.70) L 12/04/18 03:04 ABG pH 7.28 pH Units (7.32-7.45) L 12/05/18 09:10 ABG pCO2 27 mmHg (35-45) L 12/05/18 18:43 ABG pO2 80 mmHg (85-104) L 12/05/18 20:05 ABG HCO3 20 mEq/L (21-27) L 12/05/18 20:05 ABG Total CO2 17 mEq/L (20-26) L 12/05/18 18:43 ABG O2 Saturation 99 % (95-98) H 12/05/18 16:27 ABG Base Excess -4 mEq/L (-2 to 3) L 12/05/18 20:05 ABG Hematocrit 25.0 % (37.5-50.1) L 12/05/18 11:18 ABG Chloride 111 mEq/L (98-107) H 12/05/18 11:18 VBG pCO2 39 mmHg (41-51) L 12/05/18 16:20 VBG pO2 54 mmHg (25-50) H 12/05/18 16:20 VBG HCO3 20 mEq/L (21-27) L 12/05/18 16:20 Mixed VBG pH 7.31 pH Units (7.34-7.36) L 12/05/18 17:58 Mixed VBG pCO2 42 mmHg (44-46) L 12/05/18 17:58 Mixed VBG pO2 48 mmHg (35-45) H 12/05/18 17:58 Mixed VBG Oxyhemoglobin 85.5 % (60-80) H 12/05/18 17:58 Glucose 152 mg/dL (60-95) H 12/05/18 11:18 Sodium 134 mEq/L (136-145) L 12/05/18 05:36 Chloride 112 mEq/L (98-107) H 12/06/18 03:58 Carbon Dioxide 20 mEq/L (23-29) L 12/07/18 03:30 BUN 29 mg/dL (8-23) H 12/07/18 03:30 Creatinine 2.34 mg/dL (0.70-1.30) H 12/07/18 03:30 Est GFR ( Amer) 32 (> 60) L 12/07/18 03:30 Est GFR (Non-Af Amer) 27 (> 60) L 12/07/18 03:30 Glucose 107 mg/dL (70-105) H 12/07/18 03:30 POC Glucose 238 mg/dL (70-99) H 12/06/18 19:19 Hemoglobin A1c 7.6 % (-5.6) H 12/04/18 07:11 Calcium 7.5 mg/dL (8.6-10.3) L 12/07/18 03:30 Albumin 3.0 g/dL (3.5-5.7) L 12/06/18 03:58 Ur Specific [place] 1.028 (1.010-1.025) H 12/05/18 14:05 Urine Protein 30 mg/dL (Neg-Trace) H 12/05/18 14:05 Urine Blood Moderate (Negative) H 12/05/18 14:05 Urine Microscopic RBC 15-30 per hpf (0-3) H 12/05/18 14:05 Microalb/Creat Ratio 244 mcg/mg (Less than 30) H 12/06/18 03:58 Crossmatch See Detail 12/04/18 07:11 Consult Discharge Plan - Plan Referrals: Emilee Conrad CNP [Primary Care Provider] - <Chet Dhaliwal - Last Filed: 12/07/18 16:35> Date of Encounter: 12/07/18 Assessment and Plan (1) Tremor Current Visit: Yes Status: Resolved I have personally performed a [id number] assessment of the patient and have reviewed the PA/CHART PICKER note. My impressions are as follows: I agree with the assessment and plan as stated above by Dr. Rahman. We will reevaluate at your request. Subjective Interval history: The chart was reviewed, the patient was seen and examined. Case was discussed with Dr. Rahman. I agree with his assessment of the history of present illness stated above. Objective - Constitutional Vitals: Temp Pulse Resp BP Pulse Ox 98.3 F 78 18 129/61 95 12/07/18 16:31 12/07/18 16:00 12/07/18 16:00 12/07/18 16:00 12/07/18 16:00 Exam: I have personally performed a [id number] assessment of the patient and have reviewed the PA/CHART PICKER note. My impressions are as follows: No involuntary movements are identified. Otherwise I agree with the neurologic examination as documented above. Results - Laboratory Findings CBC and BMP: 12/07/18 03:30 12/07/18 03:30 Abnormal lab findings: Abnormal lab results WBC 13.2 K/mcL (4.3-11.1) H 12/07/18 03:30 RBC 3.16 M/mcL (4.19-5.50) L 12/07/18 03:30 Hgb 9.4 g/dL (12.9-16.9) L 12/07/18 03:30 Hct 28.8 % (37.5-50.1) L 12/07/18 03:30 RDW 16.4 % (11.5-14.5) H 12/07/18 03:30 Plt Count 91 K/mcL (140-400) L 12/07/18 03:30 Neutrophils # 9.5 K/mcL (1.6-8.9) H 12/07/18 03:30 Monocytes # 2.1 K/mcL (0.0-1.3) H 12/07/18 03:30 Platelet Estimate Decreased (Normal) L 12/05/18 12:03 Immature Plt Fraction 6.9 % (1.1-6.1) H 12/07/18 03:30 Poikilocytosis 1+ (Not Present) A 12/05/18 12:03 Acanthocytes (Spur) 1+ (Not Present) A 12/05/18 12:03 PT 14.7 Seconds (9.4-12.1) H 12/05/18 12:03 Heparin Anti-Xa, Unfract 0.00 IU/mL (0.30-0.70) L 12/04/18 03:04 ABG pH 7.28 pH Units (7.32-7.45) L 12/05/18 09:10 ABG pCO2 27 mmHg (35-45) L 12/05/18 18:43 ABG pO2 80 mmHg (85-104) L 12/05/18 20:05 ABG HCO3 20 mEq/L (21-27) L 12/05/18 20:05 ABG Total CO2 17 mEq/L (20-26) L 12/05/18 18:43 ABG O2 Saturation 99 % (95-98) H 12/05/18 16:27 ABG Base Excess -4 mEq/L (-2 to 3) L 12/05/18 20:05 ABG Hematocrit 25.0 % (37.5-50.1) L 12/05/18 11:18 ABG Chloride 111 mEq/L (98-107) H 12/05/18 11:18 VBG pCO2 39 mmHg (41-51) L 12/05/18 16:20 VBG pO2 54 mmHg (25-50) H 12/05/18 16:20 VBG HCO3 20 mEq/L (21-27) L 12/05/18 16:20 Mixed VBG pH 7.31 pH Units (7.34-7.36) L 12/05/18 17:58 Mixed VBG pCO2 42 mmHg (44-46) L 12/05/18 17:58 Mixed VBG pO2 48 mmHg (35-45) H 12/05/18 17:58 Mixed VBG Oxyhemoglobin 85.5 % (60-80) H 12/05/18 17:58 Glucose 152 mg/dL (60-95) H 12/05/18 11:18 Sodium 134 mEq/L (136-145) L 12/05/18 05:36 Chloride 112 mEq/L (98-107) H 12/06/18 03:58 Carbon Dioxide 20 mEq/L (23-29) L 12/07/18 03:30 BUN 29 mg/dL (8-23) H 12/07/18 03:30 Creatinine 2.34 mg/dL (0.70-1.30) H 12/07/18 03:30 Est GFR ( Amer) 32 (> 60) L 12/07/18 03:30 Est GFR (Non-Af Amer) 27 (> 60) L 12/07/18 03:30 Glucose 107 mg/dL (70-105) H 12/07/18 03:30 POC Glucose 238 mg/dL (70-99) H 12/06/18 19:19 Hemoglobin A1c 7.6 % (-5.6) H 12/04/18 07:11 Calcium 7.5 mg/dL (8.6-10.3) L 12/07/18 03:30 Albumin 3.0 g/dL (3.5-5.7) L 12/06/18 03:58 Ur Specific [place] 1.028 (1.010-1.025) H 12/05/18 14:05 Urine Protein 30 mg/dL (Neg-Trace) H 12/05/18 14:05 Urine Blood Moderate (Negative) H 12/05/18 14:05 Urine Microscopic RBC 15-30 per hpf (0-3) H 12/05/18 14:05 Microalb/Creat Ratio 244 mcg/mg (Less than 30) H 12/06/18 03:58 Crossmatch See Detail 12/04/18 07:11
[2018-12-07] MEDS: Aspirin Enteric Coated 81 MG Tablet PO SCH (09:21)
[2018-12-07] MEDS: Cholecalciferol (D-3) 1,000 UNIT (25MCG) TABLET PO SCH (09:21)
[2018-12-07] MEDS: Finasteride 5 MG TABLET PO SCH (09:22)
[2018-12-07] MEDS: amLODIPine 5 MG TABLET PO SCH (09:24)
[2018-12-07] MEDS: Pantoprazole 40 MG VIAL IVP SCH (09:31)
[2018-12-07] MEDS ORDERED: clonazePAM 0.5 MG TABLET PO PRN (09:45)
--- NOTE | 2018-12-07 18:28 | Nephrology Progress Note ---
Date of Encounter: 12/07/18 Time of Encounter: 12:00 - Assessment and Plan (1) Chronic kidney disease Status: Acute SCr slightly worse at 2.34, GFR 27, will monitor. Baseline typically GFR in the 30s Continue to encourage po fluids and IVF Continue to avoid nephrotoxins if possible Lytes stable UOp noted at 1100cc in the past 24hrs which is good No acute indication for [facility] at this time Qualifiers: Chronic kidney disease stage: stage 3 (moderate) Qualified Code(s): N18.3 - Chronic kidney disease, stage 3 (moderate) (2) CAD (coronary artery disease) Status: Acute s/p CABGx4, POD #2. Per Cardiothoracic surgery. Qualifiers: Coronary Disease-Associated Artery/Lesion type: [place] artery [place] vs. transplanted heart: [place] heart Associated angina: with unstable angina Qualified Code(s): I25.110 - Atherosclerotic heart disease of [place] coronary artery with unstable angina pectoris (3) Diabetes mellitus, type II, insulin dependent Status: Chronic Fairly stable. (4) Hypertension Status: Chronic Stable Qualifiers: Hypertension type: essential hypertension Qualified Code(s): I10 - Essential (primary) hypertension Subjective Principal diagnosis: CAD Interval history: Interim noted, pt seen and examined s/p CABG POD#2 Objective - Vital Signs Vital signs: Vital Signs Temp Pulse Resp BP Pulse Ox 12/07/18 18:00 85 18 136/63 96 12/07/18 17:00 87 18 144/60 99 12/07/18 16:31 98.3 F 12/07/18 16:00 78 18 129/61 95 12/07/18 15:28 17 95 12/07/18 15:11 74 12/07/18 15:00 74 18 121/60 96 12/07/18 14:00 75 18 103/74 98 12/07/18 13:00 77 18 117/62 98 12/07/18 12:00 77 18 101/47 97 12/07/18 11:15 99.2 F 12/07/18 11:00 70 18 107/51 98 12/07/18 10:59 70 12/07/18 10:50 18 95 12/07/18 10:00 69 16 108/97 100 12/07/18 09:00 84 16 110/93 100 12/07/18 08:00 81 18 118/60 100 12/07/18 07:07 18 100 12/07/18 07:00 100.1 F H 89 16 128/61 95 12/07/18 06:00 75 18 115/66 99 12/07/18 05:00 82 17 133/62 97 12/07/18 04:19 17 94 12/07/18 04:00 78 22 106/48 99 12/07/18 03:50 99.6 F 12/07/18 03:14 74 12/07/18 03:00 75 22 102/52 99 12/07/18 02:00 74 20 113/57 98 12/07/18 01:00 65 14 104/56 98 12/07/18 00:00 68 14 81/47 98 12/06/18 23:20 65 12/06/18 23:10 99.0 F 12/06/18 23:00 72 14 104/47 94 12/06/18 22:00 64 18 81/41 99 12/06/18 21:00 77 16 120/58 95 12/06/18 20:00 79 16 92/43 99 12/06/18 19:49 16 128/57 99 12/06/18 19:37 70 12/06/18 19:00 78 24 115/72 98 12/06/18 18:58 100.3 F H Intake and Output 12/07/18 12/07/18 12/07/18 07:59 15:59 23:59 Intake Total 999 Output Total 345 / 445 100 / 445 Balance 655 / 1555 900 / 1555 Intake: IV Fluids 999 0.9 % Sodium Chloride 1,000 ML 999 @ 50 mls/hr IVC .Q20H [facility] Rx#: [id number] Oral 0 / 0 Output: Catheter 300 / 400 100 / 400 Chest Tube Drainage 45 / 45 Mediastinal #1 45 / 45 Mediastinal #2 0 / 0 Other: Meal Lunch Percent of Meal Consumed 75% Blood Glucose* 130 233 286 - General Appearance General appearance: Present: well-developed, well-nourished EENT: Present: ATNC, mucous membranes moist Neck: Present: no JVD, supple Additional Comments: good aeration ant bilat Cardiology: Present: no edema, normal S1, normal S2 Gastrointestinal: Present: no tenderness, no guarding Integumentary: Present: warm and dry Neurologic: Present: no focal deficit Musculoskeletal: Present: no deformities Psychiatric: Present: mood/affect appropriate, cooperative - Lab 12/16/18 06:34 12/18/18 01:30 - VTE Documentation of Mechanical Device: Graduated compression elastic hosiery Consult Discharge Plan - Plan Referrals: Yeni Mccord MD [Partnered Physician] - 01/04/19 11:20 am Conrad,Emilee Albarado CNP [Primary Care Provider] - (patient is going to rehab no PCP appointment needed) Aleksey Joseph MD [Non-Partnered Physician] - 01/10/19 9:00 am
[2018-12-08 03:34] LABS: Basophils % 0.2 %; Eosinophils # 0.1 K/mcL (0.0-0.6); Eosinophils % 0.9 %; Hematocrit 27.5 % (37.5-50.1); Hemoglobin 8.8 g/dL (12.9-16.9); Immature Granulocytes % 1.2 % (0-4); Immature Platelets 4.6 % (1.1-6.1); Lymphocytes # 1.3 K/mcL (0.6-4.6); Lymphocytes % 13.7 %; Mean Corpuscular Hemoglobin 29.2 pg (28.0-33.3); Mean Corpuscular Volume 91.4 fL (83.0-100.0); Mean Platelet Volume 11.3 fL (9.4-12.4); Monocytes # 1.4 K/mcL (0.0-1.3); Monocytes % 14.8 %; Neutrophils # 6.4 K/mcL (1.6-8.9); Platelet Count 94 K/mcL (140-400); Red Blood Count 3.01 M/mcL (4.19-5.50); Red Cell Distribution Width 16.2 % (11.5-14.5); Segmented Neutrophils % 69.2 %; White Blood Count 9.2 K/mcL (4.3-11.1)
[2018-12-08 03:51] LABS: Calcium 7.3 mg/dL (8.6-10.3); Potassium 4.3 mEq/L (3.5-5.1)
[2018-12-08] MEDS: *HR* Heparin 5,000 UNIT/ML VIAL SQ SCH ×2 (05:49→17:28)
[2018-12-08] MEDS: Chlorhexidine Rinse 15 ML MOUTHWASH MM SCH ×2 (08:17→20:27)
[2018-12-08] MEDS: Finasteride 5 MG TABLET PO SCH (08:17)
[2018-12-08] MEDS: amLODIPine 5 MG TABLET PO SCH (08:17)
[2018-12-08] MEDS: Pantoprazole 40 MG VIAL IVP SCH (08:17)
[2018-12-08] MEDS: Cholecalciferol (D-3) 1,000 UNIT (25MCG) TABLET PO SCH (08:17)
[2018-12-08] MEDS: Insulin LISPRO 300 UNITS/3 ML VIAL SQ SCH ×4 (08:17→20:28)
[2018-12-08] MEDS: Aspirin Enteric Coated 81 MG Tablet PO SCH (08:17)
--- NOTE | 2018-12-08 10:41 | Cardiothoracic Progress Note ---
Date of Encounter: 12/08/18 Time of Encounter: 10:40 - Assessment and plan (1) CAD (coronary artery disease) Current Visit: Yes Status: Acute Creatinine has improved to 2.2. We will transfer the patient to the floor. Qualifiers: Coronary Disease-Associated Artery/Lesion type: [place] artery [place] vs. transplanted heart: [place] heart Associated angina: with unstable angina Qualified Code(s): I25.110 - Atherosclerotic heart disease of [place] coronary artery with unstable angina pectoris - Subjective Interval history: The patient is tolerating his diet and sitting in a chair. He has no complaints . Vital Signs, Last 4 Hours Temp Pulse Resp BP Pulse Ox 12/08/18 10:00 81 16 147/66 98 12/08/18 09:00 80 16 128/53 98 12/08/18 08:00 92 20 121/88 96 12/08/18 07:33 24 98 12/08/18 07:08 97.4 F L 12/08/18 07:00 81 20 132/60 96 Oxgyen Flow Rate Oxygen Flow Rate (LPM) 2 Clinical Data, last 8 Hours Output, Urine Amount 125 Output, Urine Amount 100 Weight 12/06/18 12/07/18 12/08/18 23:59 23:59 23:59 Weight 83.7 kg 83.2 kg Lungs are clear to percussion and auscultation. Heart is in a regular rate and rhythm. All incisions are healing well without signs of infection and the sternum is stable. - Labs 12/08/18 00:01 12/08/18 00:01 Lab Results, Last 24 hours 12/08/18 12/08/18 00:01 00:01 WBC 9.2 Hgb 8.8 L Hct 27.5 L Plt Count 94 L Sodium 134 L Potassium 4.3 Chloride 109 H Carbon Dioxide 20 L BUN 34 H Creatinine 2.20 H Glucose 157 H Calcium 7.3 L - VTE Documentation of Mechanical Device: Graduated compression elastic hosiery Consult Discharge Plan - Plan Referrals: Emilee Conrad CNP [Primary Care Provider] -
[2018-12-08] MEDS ORDERED: D5% in Water 1,000 ML IVC PRN (12:08)
[2018-12-08] MEDS ORDERED: Dextrose Gel 15 GM/37.5 ML TUBE PO PRN ×2 (12:08)
[2018-12-08] MEDS ORDERED: Naloxone 0.4 MG/ML INJ IVP PRN (12:08)
[2018-12-08] MEDS ORDERED: Acetaminophen 325 MG TABLET PO PRN (12:08)
[2018-12-08] MEDS ORDERED: *HR* Dextrose 50 % in Water (Syg) 50 ML SYRINGE IVP PRN (12:08)
[2018-12-08] MEDS ORDERED: Ondansetron 4 MG/2 ML VIAL IVP PRN (12:08)
[2018-12-08] MEDS ORDERED: Nitroglycerin 0.4 MG TAB.SUBL SL PRN (12:08)
[2018-12-08] MEDS ORDERED: clonazePAM 0.5 MG TABLET PO PRN (12:08)
--- NOTE | 2018-12-08 12:49 | Nephrology Progress Note ---
Date of Encounter: 12/08/18 Time of Encounter: 12:00 - Assessment and Plan (1) Chronic kidney disease Current Visit: No Status: Chronic SCr improving at 2.2, GFR 29, baseline typically GFR in the 30s Continue po fluids Continue to avoid nephrotoxins if possible Lytes stable Qualifiers: Qualified Code(s): N18.3 - Chronic kidney disease, stage 3 (moderate) (2) CAD (coronary artery disease) Current Visit: Yes Status: Acute s/p CABGx4, POD #3. Per Cardiothoracic surgery. Qualifiers: Qualified Code(s): I25.110 - Atherosclerotic heart disease of [place] coronary artery with unstable angina pectoris (3) Hypertension Current Visit: Yes Status: Chronic Stable Qualifiers: Qualified Code(s): I10 - Essential (primary) hypertension (4) Diabetes mellitus, type II, insulin dependent Current Visit: No Status: Chronic Per primary. Subjective Principal diagnosis: CAD Interval history: Pt seen and examined tolerating po intake and now off IVF per nurse Objective - Vital Signs Vital signs: Vital Signs Temp Pulse Resp BP Pulse Ox 12/08/18 12:00 96 16 125/90 98 12/08/18 11:51 98.0 F 12/08/18 11:00 81 12/08/18 10:00 81 16 147/66 98 12/08/18 09:00 80 16 128/53 98 12/08/18 08:00 92 20 121/88 96 12/08/18 07:33 24 98 12/08/18 07:08 97.4 F L 12/08/18 07:00 81 20 132/60 96 12/08/18 06:00 81 20 137/59 98 12/08/18 05:00 77 20 121/53 99 12/08/18 04:00 100.1 F H 75 16 92/48 98 12/08/18 03:43 16 99 12/08/18 03:30 81 12/08/18 03:00 75 18 130/60 97 12/08/18 02:00 72 20 120/54 99 12/08/18 01:00 74 18 124/84 99 12/08/18 00:00 100.6 F H 77 18 125/56 98 12/07/18 23:30 77 12/07/18 23:26 16 99 12/07/18 23:00 80 16 120/53 99 12/07/18 22:00 90 16 151/72 97 12/07/18 21:00 94 20 151/67 96 12/07/18 20:00 100.7 F H 87 18 135/68 96 12/07/18 19:38 16 97 12/07/18 19:30 94 12/07/18 19:00 94 20 144/70 96 12/07/18 18:00 85 18 136/63 96 12/07/18 17:00 87 18 144/60 99 12/07/18 16:31 98.3 F 12/07/18 16:00 78 18 129/61 95 12/07/18 15:28 17 95 12/07/18 15:11 74 12/07/18 15:00 74 18 121/60 96 12/07/18 14:00 75 18 103/74 98 12/07/18 13:00 77 18 117/62 98 Intake and Output 12/07/18 12/08/18 12/08/18 23:59 07:59 15:59 Intake Total 1000 / 1800 800 / 1800 Output Total 150 / 595 325 / 650 325 / 650 Balance -150 / 1405 675 / 1150 475 / 1150 Intake: IV Fluids 1000 / 1000 0.9 % Sodium Chloride 1,000 ML 1000 / 1000 @ 50 mls/hr IVC .Q20H [facility] Rx#: [id number] Oral 800 / 800 Output: Urine 150 / 150 325 / 650 325 / 650 Other: Meal Breakfast Percent of Meal Consumed 90% Weight 83.2 kg Blood Glucose* 273 223 225 Patient Weight 12/08/18 23:59 Weight 83.2 kg - General Appearance General appearance: Present: well-developed, well-nourished EENT: Present: ATNC, mucous membranes moist Neck: Present: no JVD, supple Additional Comments: good areation ant bilat Cardiology: Present: edema (trace LE bilat), normal S1, normal S2 Gastrointestinal: Present: no tenderness, no guarding Integumentary: Present: warm and dry Neurologic: Present: no focal deficit Musculoskeletal: Present: no deformities Psychiatric: Present: mood/affect appropriate, cooperative - Lab 12/09/18 05:06 12/09/18 05:06 Most recent lab results 12/08/18 00:01 Calcium 7.3 L - VTE Documentation of Mechanical Device: Graduated compression elastic hosiery Consult Discharge Plan - Plan Referrals: Emilee Conrad CNP [Primary Care Provider] -
[2018-12-09] MEDS: *HR* Heparin 5,000 UNIT/ML VIAL SQ SCH ×2 (05:32→16:47)
[2018-12-09 05:48] LABS: Basophils % 0.1 %; Eosinophils # 0.1 K/mcL (0.0-0.6); Eosinophils % 0.9 %; Hematocrit 27.3 % (37.5-50.1); Hemoglobin 8.8 g/dL (12.9-16.9); Immature Granulocytes % 1.1 % (0-4); Lymphocytes # 1.2 K/mcL (0.6-4.6); Lymphocytes % 15.2 %; Mean Corpuscular HGB Conc 32.2 g/dL (31.6-35.5); Mean Corpuscular Hemoglobin 29.6 pg (28.0-33.3); Mean Corpuscular Volume 91.9 fL (83.0-100.0); Mean Platelet Volume 10.8 fL (9.4-12.4); Monocytes # 1.2 K/mcL (0.0-1.3); Monocytes % 14.9 %; Neutrophils # 5.4 K/mcL (1.6-8.9); Platelet Count 116 K/mcL (140-400); Red Blood Count 2.97 M/mcL (4.19-5.50); Red Cell Distribution Width 16.1 % (11.5-14.5); Segmented Neutrophils % 67.8 %
[2018-12-09 06:09] LABS: Calcium 7.6 mg/dL (8.6-10.3); Potassium 4.2 mEq/L (3.5-5.1)
[2018-12-09] MEDS: Cholecalciferol (D-3) 1,000 UNIT (25MCG) TABLET PO SCH (07:25)
[2018-12-09] MEDS: Finasteride 5 MG TABLET PO SCH (07:25)
[2018-12-09] MEDS: amLODIPine 5 MG TABLET PO SCH (07:26)
[2018-12-09] MEDS: Aspirin Enteric Coated 81 MG Tablet PO SCH (07:26)
[2018-12-09] MEDS: Insulin LISPRO 300 UNITS/3 ML VIAL SQ SCH ×4 (07:27→20:48)
[2018-12-09] MEDS: Pantoprazole 40 MG VIAL IVP SCH (07:29)
[2018-12-09] MEDS: Chlorhexidine Rinse 15 ML MOUTHWASH MM SCH ×2 (07:29→20:47)
--- NOTE | 2018-12-09 09:07 | Nephrology Progress Note ---
Date of Encounter: 12/09/18 Time of Encounter: 10:00 - Assessment and Plan (1) Chronic kidney disease Status: Acute SCr continues to fluctuate at 2.52, GFR 24, baseline typically GFR in the 30s Encourage more po fluids Continue to avoid nephrotoxins if possible Lytes stable Qualifiers: Chronic kidney disease stage: stage 3 (moderate) Qualified Code(s): N18.3 - Chronic kidney disease, stage 3 (moderate) (2) CAD (coronary artery disease) Status: Acute s/p CABGx4, POD #4. Per Cardiothoracic surgery. Qualifiers: Coronary Disease-Associated Artery/Lesion type: [place] artery [place] vs. transplanted heart: [place] heart Associated angina: with unstable angina Qualified Code(s): I25.110 - Atherosclerotic heart disease of [place] coronary artery with unstable angina pectoris (3) Hypertension Status: Chronic Stable Qualifiers: Hypertension type: essential hypertension Qualified Code(s): I10 - Essential (primary) hypertension (4) Diabetes mellitus, type II, insulin dependent Status: Chronic Fairly stable. Subjective Principal diagnosis: CAD Interval history: Pt seen and examined with at beside, no new complaints Objective - Vital Signs Vital signs: Vital Signs Temp Pulse Resp BP Pulse Ox 12/09/18 07:47 16 94 12/09/18 07:00 76 12/09/18 04:03 18 94 12/09/18 04:00 99.8 F H 12/09/18 03:59 76 18 137/66 96 12/09/18 00:43 99.7 F H 12/08/18 23:26 16 94 12/08/18 20:54 99.5 F 84 14 114/87 94 12/08/18 20:00 99.5 F 12/08/18 19:47 18 94 12/08/18 18:00 86 14 96 12/08/18 17:02 99.2 F 12/08/18 16:39 18 100 12/08/18 16:00 82 15 122/65 97 12/08/18 15:00 77 12/08/18 14:00 77 16 111/62 99 12/08/18 13:00 97 16 97 12/08/18 12:00 96 16 125/90 98 12/08/18 11:51 98.0 F 12/08/18 11:14 16 98 12/08/18 11:00 81 12/08/18 10:00 81 16 147/66 98 Intake and Output 12/08/18 12/09/18 12/09/18 23:59 07:59 15:59 Output Total 225 / 875 200 / 200 Balance -225 / 1245 -200 / -200 Output: Urine 225 / 875 200 / 200 Other: Meal Dinner Percent of Meal Consumed 60% Weight 83.6 kg Blood Glucose* 187 Patient Weight 12/09/18 23:59 Weight 83.6 kg - General Appearance General appearance: Present: well-developed, well-nourished EENT: Present: ATNC, mucous membranes moist Neck: Present: no JVD, supple Respiratory: Present: clear Cardiology: Present: edema (trace LE bilat), normal S1, normal S2 Gastrointestinal: Present: no tenderness, no guarding Integumentary: Present: warm and dry Neurologic: Present: no focal deficit Musculoskeletal: Present: no deformities Psychiatric: Present: mood/affect appropriate, cooperative - Lab 12/16/18 06:34 12/18/18 01:30 Most recent lab results 12/09/18 05:06 Calcium 7.6 L - VTE Documentation of Mechanical Device: Graduated compression elastic hosiery Consult Discharge Plan - Plan Referrals: Yeni Mccord MD [Partnered Physician] - 01/04/19 11:20 am Conrad,Emilee Albarado CNP [Primary Care Provider] - (patient is going to rehab no PCP appointment needed) Aleksey Joseph MD [Non-Partnered Physician] - 01/10/19 9:00 am
--- NOTE | 2018-12-09 09:27 | Cardiothoracic Progress Note ---
Date of Encounter: 12/09/18 Time of Encounter: 09:26 - Assessment and plan (1) CAD (coronary artery disease) Current Visit: Yes Status: Acute His creatinine has increased to 2.5. We will continue to follow and he is being followed by the renal service. Qualifiers: Coronary Disease-Associated Artery/Lesion type: [place] artery [place] vs. transplanted heart: [place] heart Associated angina: with unstable angina Qualified Code(s): I25.110 - Atherosclerotic heart disease of [place] coronary artery with unstable angina pectoris - Subjective Interval history: The patient is tolerating his diet and has no complaints. Vital Signs, Last 4 Hours Pulse Resp Pulse Ox 12/09/18 07:47 16 94 12/09/18 07:00 76 Oxgyen Flow Rate Oxygen Flow Rate (LPM) 2 Weight 12/07/18 12/08/18 12/09/18 23:59 23:59 23:59 Weight 83.2 kg 83.6 kg Lungs are clear to percussion and auscultation. Heart is in a normal sinus rhythm. All incisions are healing well without signs of infection and the sternum is stable. - Labs 12/09/18 05:06 12/09/18 05:06 Lab Results, Last 24 hours 12/09/18 12/09/18 05:06 05:06 WBC 8.0 Hgb 8.8 L Hct 27.3 L Plt Count 116 L Sodium 135 L Potassium 4.2 Chloride 105 Carbon Dioxide 18 L BUN 36 H Creatinine 2.52 H Glucose 145 H Calcium 7.6 L - VTE Documentation of Mechanical Device: Graduated compression elastic hosiery Consult Discharge Plan - Plan Referrals: Emilee Conrad CNP [Primary Care Provider] -
[2018-12-10] MEDS: *HR* Heparin 5,000 UNIT/ML VIAL SQ SCH ×2 (05:11→16:45)
[2018-12-10 07:14] LABS: Basophils % 0.2 %; Eosinophils # 0.1 K/mcL (0.0-0.6); Eosinophils % 1.2 %; Hematocrit 26.2 % (37.5-50.1); Hemoglobin 8.4 g/dL (12.9-16.9); Immature Granulocytes % 0.9 % (0-4); Lymphocytes # 1.3 K/mcL (0.6-4.6); Lymphocytes % 19.6 %; Mean Corpuscular HGB Conc 32.1 g/dL (31.6-35.5); Mean Corpuscular Hemoglobin 29.1 pg (28.0-33.3); Mean Corpuscular Volume 90.7 fL (83.0-100.0); Mean Platelet Volume 11.3 fL (9.4-12.4); Monocytes # 0.9 K/mcL (0.0-1.3); Monocytes % 13.8 %; Neutrophils # 4.2 K/mcL (1.6-8.9); Platelet Count 141 K/mcL (140-400); Red Blood Count 2.89 M/mcL (4.19-5.50); Segmented Neutrophils % 64.3 %; White Blood Count 6.5 K/mcL (4.3-11.1)
[2018-12-10 07:33] LABS: Calcium 7.5 mg/dL (8.6-10.3); Potassium 4.6 mEq/L (3.5-5.1)
[2018-12-10] MEDS ORDERED: Bisacodyl 10 MG RECTAL SUPPOSITORY RC PRN (07:50)
[2018-12-10] MEDS: Cholecalciferol (D-3) 1,000 UNIT (25MCG) TABLET PO SCH (08:00)
[2018-12-10] MEDS: Finasteride 5 MG TABLET PO SCH (08:01)
[2018-12-10] MEDS: Insulin LISPRO 300 UNITS/3 ML VIAL SQ SCH ×4 (08:01→20:01)
[2018-12-10] MEDS: Chlorhexidine Rinse 15 ML MOUTHWASH MM SCH ×2 (08:01→19:59)
[2018-12-10] MEDS: amLODIPine 5 MG TABLET PO SCH (08:01)
[2018-12-10] MEDS: Aspirin Enteric Coated 81 MG Tablet PO SCH (08:01)
[2018-12-10] MEDS: Pantoprazole 40 MG VIAL IVP SCH (08:01)
--- NOTE | 2018-12-10 08:08 | Cardiothoracic Progress Note ---
Date of Encounter: 12/10/18 Time of Encounter: 07:35 - Assessment and plan (1) CAD (coronary artery disease) Current Visit: Yes Status: Acute The patient is recovering well from his CABG4. The patient's renal function is being followed by the nephrology service. He began ambulating in the hallways chest today. He is considering transfer to an inpatient rehabilitation unit that her this week as a bridge to home. The assessment and plan as outlined above was discussed with the patient and/or family members who expressed understanding and agreement. All questions were answered. Qualifiers: Coronary Disease-Associated Artery/Lesion type: [place] artery [place] vs. transplanted heart: [place] heart Associated angina: with unstable angina Qualified Code(s): I25.110 - Atherosclerotic heart disease of [place] coronary artery with unstable angina pectoris - Subjective Procedure(s) Performed: POD#5 S/P CABG4 Interval history: The patient remained hemodynamically stable overnight. He was able to ambulate in his room and for a short distance in the hallways yesterday. He has no complaints. Vital Signs, Last 4 Hours Temp Pulse Resp BP Pulse Ox 12/10/18 07:52 98.1 F 78 18 139/80 94 12/10/18 07:22 16 100 12/10/18 04:38 16 100 12/10/18 04:08 98.3 F 68 16 123/64 100 Oxgyen Flow Rate Oxygen Flow Rate (LPM) 0 Clinical Data, last 8 Hours Output, Urine Amount 240 Weight 12/08/18 12/09/18 12/10/18 23:59 23:59 23:59 Weight 83.2 kg 83.6 kg 83.3 kg - Physical Examination General: Conversant, No Apparent Distress Neck: No JVD, Normal carotid pulses Cardiac: Reg Rate and Rhythm, Normal S1 and S2, No Murmur Incision: No signs of infection, Dry/intact dressing Sternum: Stable Pacing Wires: In place Lungs: Normal Breath Sounds, No Wheeze, Rales, Rhonchi Neuro: Alert and responsive, No focal deficits noted Vascular: Normal capillary refill Extremities: No Clubbing, No Cyanosis, No Edema - Labs 12/10/18 06:20 12/10/18 06:20 Lab Results, Last 24 hours 12/10/18 12/10/18 06:20 06:20 WBC 6.5 Hgb 8.4 L Hct 26.2 L Plt Count 141 Sodium 134 L Potassium 4.6 Chloride 105 Carbon Dioxide 18 L BUN 38 H Creatinine 2.79 H Glucose 187 H Calcium 7.5 L - VTE Documentation of Mechanical Device: Graduated compression elastic hosiery Consult Discharge Plan - Plan Referrals: Emilee Conrad, ROBERT [Primary Care Provider] -
[2018-12-10] MEDS ORDERED: Amiodarone Premix 360 MG/200 ML BAG IVC ONE (14:14)
[2018-12-10] MEDS ORDERED: Amiodarone Premix 150 MG/100 ML BAG IVPB ONE (14:14)
[2018-12-10] MEDS ORDERED: Amiodarone Premix 360 MG/200 ML BAG IVC SCH (14:15)
--- NOTE | 2018-12-10 17:30 | Nephrology Progress Note ---
Date of Encounter: 12/10/18 Time of Encounter: 12:00 - Assessment and Plan (1) Chronic kidney disease Current Visit: No Status: Chronic SCr worse at 2.79, GFR 22, baseline typically GFR in the 30s Encouraged po fluids Continue to avoid nephrotoxins if possible Lytes stable UOp noted at 650cc in the past 24hrs Qualifiers: Chronic kidney disease stage: stage 3 (moderate) Qualified Code(s): N18.3 - Chronic kidney disease, stage 3 (moderate) (2) CAD (coronary artery disease) Current Visit: Yes Status: Acute s/p CABGx4, POD #5. Per Cardiothoracic surgery. Qualifiers: Coronary Disease-Associated Artery/Lesion type: [place] artery [place] vs. transplanted heart: [place] heart Associated angina: with unstable angina Qualified Code(s): I25.110 - Atherosclerotic heart disease of [place] coronary artery with unstable angina pectoris (3) Hypertension Current Visit: Yes Status: Chronic Stable Qualifiers: Hypertension type: essential hypertension Qualified Code(s): I10 - Essential (primary) hypertension (4) Diabetes mellitus, type II, insulin dependent Current Visit: No Status: Chronic Fairly stable. Subjective Principal diagnosis: CAD Interval history: Pt seen and examined with and friend at bedside having difficulty coughing due to pain on incision lines. Was able to ambulate alittle today Objective - Vital Signs Vital signs: Vital Signs Temp Pulse Resp BP Pulse Ox 12/10/18 17:00 61 131/65 12/10/18 16:31 61 12/10/18 16:30 98.2 F 68 18 128/68 96 12/10/18 16:00 69 20 116/66 98 12/10/18 15:48 16 96 12/10/18 15:17 63 104/61 12/10/18 15:03 71 16 117/75 97 12/10/18 12:00 71 12/10/18 11:54 98.0 F 72 18 127/63 92 12/10/18 08:54 72 12/10/18 07:52 98.1 F 78 18 139/80 94 12/10/18 07:22 16 100 12/10/18 04:38 16 100 12/10/18 04:08 98.3 F 68 16 123/64 100 12/09/18 23:57 16 99 12/09/18 23:47 98.1 F 69 18 137/67 99 12/09/18 19:53 16 95 12/09/18 18:55 97.9 F 79 19 119/64 97 Intake and Output 12/10/18 12/10/18 12/10/18 07:59 15:59 23:59 Intake Total 700 / 700 Output Total 490 / 790 300 / 790 Balance -490 / -90 700 / -90 -300 / -90 Intake: Oral 700 / 700 Output: Urine 240 / 540 300 / 540 Catheter 250 / 250 Other: Meal Lunch Percent of Meal Consumed 75% Weight 83.3 kg Blood Glucose* 192 221 245 Patient Weight 12/10/18 23:59 Weight 83.3 kg - General Appearance General appearance: Present: chronically ill, fatigue EENT: Present: ATNC, mucous membranes moist Neck: Present: no JVD, supple Additional Comments: good areation ant bilat Cardiology: Present: edema (trace with compression stockings bilat LE), normal S1, normal S2 Gastrointestinal: Present: no tenderness, no guarding Integumentary: Present: warm and dry Neurologic: Present: no focal deficit Musculoskeletal: Present: no deformities Psychiatric: Present: mood/affect appropriate, cooperative - Lab 12/11/18 01:47 12/11/18 01:47 Most recent lab results 12/10/18 06:20 Calcium 7.5 L - VTE Documentation of Mechanical Device: Graduated compression elastic hosiery Consult Discharge Plan - Plan Referrals: Yeni Mccord MD [Partnered Physician] - 01/04/19 11:20 am Conrad,Emilee Albarado CNP [Primary Care Provider] - (patient might go to rehab) Aleksey Joseph MD [Non-Partnered Physician] - 12/20/18 2:50 pm
[2018-12-10] MEDS: Amiodarone Premix 360 MG/200 ML BAG IVC SCH (20:03)
[2018-12-11 01:57] LABS: Basophils % 0.3 %; Eosinophils # 0.1 K/mcL (0.0-0.6); Eosinophils % 1.7 %; Hemoglobin 8.3 g/dL (12.9-16.9); Immature Granulocytes % 1.1 % (0-4); Lymphocytes % 15.8 %; Mean Corpuscular HGB Conc 31.9 g/dL (31.6-35.5); Mean Corpuscular Hemoglobin 28.8 pg (28.0-33.3); Mean Corpuscular Volume 90.3 fL (83.0-100.0); Monocytes # 0.8 K/mcL (0.0-1.3); Monocytes % 12.7 %; Neutrophils # 4.4 K/mcL (1.6-8.9); Platelet Count 146 K/mcL (140-400); Red Blood Count 2.88 M/mcL (4.19-5.50); Segmented Neutrophils % 68.4 %; White Blood Count 6.4 K/mcL (4.3-11.1)
[2018-12-11 02:17] LABS: Calcium 7.3 mg/dL (8.6-10.3); Potassium 4.7 mEq/L (3.5-5.1)
[2018-12-11] MEDS: *HR* Heparin 5,000 UNIT/ML VIAL SQ SCH ×2 (05:00→17:20)
--- NOTE | 2018-12-11 06:54 | Cardiothoracic Progress Note ---
Date of Encounter: 12/11/18 Time of Encounter: 06:52 - Assessment and plan (1) CAD (coronary artery disease) Current Visit: Yes Status: Acute The patient is recovering well from his CABG4. The patient's renal function is slowly improving and he is being followed by the nephrology service. He to need ambulating in the hallways yesterday. He is considering transfer to an inpatient rehabilitation unit later this week as a bridge to home. The assessm ent and plan as outlined above was discussed with the patient and/or family members who expressed understanding and agreement. All questions were answered. Qualifiers: Coronary Disease-Associated Artery/Lesion type: [place] artery [place] vs. transplanted heart: [place] heart Associated angina: with unstable angina Qualified Code(s): I25.110 - Atherosclerotic heart disease of [place] coronary artery with unstable angina pectoris - Subjective Procedure(s) Performed: POD#6 S/P CABG4 Interval history: The patient remained hemodynamically stable overnight. He was able to ambulate in his room and for a short distance in the hallways yesterday. He has no complaints. Vital Signs, Last 4 Hours Temp Pulse Resp BP Pulse Ox 12/11/18 05:00 76 142/62 12/11/18 04:00 62 117/54 12/11/18 03:35 98.4 F 63 18 117/62 98 12/11/18 03:19 16 99 12/11/18 03:00 65 117/62 Oxgyen Flow Rate Oxygen Flow Rate (LPM) 2 Clinical Data, last 8 Hours Output, Urine Amount 100 Output, Urine Amount 150 Output, Urine Amount 150 Weight 12/09/18 12/10/18 12/11/18 23:59 23:59 23:59 Weight 83.6 kg 83.3 kg 84.5 kg - Physical Examination General: Conversant, No Apparent Distress Neck: No JVD, Normal carotid pulses Cardiac: Reg Rate and Rhythm, Normal S1 and S2, No Murmur Incision: No signs of infection, Dry/intact dressing Sternum: Stable Pacing Wires: In place Lungs: Normal Breath Sounds, No Wheeze, Rales, Rhonchi Neuro: Alert and responsive, No focal deficits noted Vascular: Normal capillary refill Extremities: No Clubbing, No Cyanosis, No Edema - Labs 12/11/18 01:47 12/11/18 01:47 Lab Results, Last 24 hours 12/10/18 12/10/18 12/11/18 06:20 06:20 01:47 WBC 6.5 6.4 Hgb 8.4 L 8.3 L Hct 26.2 L 26.0 L Plt Count 141 146 Sodium 134 L Potassium 4.6 Chloride 105 Carbon Dioxide 18 L BUN 38 H Creatinine 2.79 H Glucose 187 H Calcium 7.5 L 12/11/18 01:47 WBC Hgb Hct Plt Count Sodium 130 L Potassium 4.7 Chloride 104 Carbon Dioxide 19 L BUN 42 H Creatinine 2.67 H Glucose 201 H Calcium 7.3 L - VTE Documentation of Mechanical Device: Graduated compression elastic hosiery Consult Discharge Plan - Plan Referrals: Yeni Mccord MD [Partnered Physician] - 01/04/19 11:20 am Conrad,Emilee Albarado CNP [Primary Care Provider] - (patient might go to rehab) Aleksey Joseph MD [Non-Partnered Physician] - 12/20/18 2:50 pm
[2018-12-11] MEDS: amLODIPine 5 MG TABLET PO SCH (08:22)
[2018-12-11] MEDS: Aspirin Enteric Coated 81 MG Tablet PO SCH (08:22)
[2018-12-11] MEDS: Cholecalciferol (D-3) 1,000 UNIT (25MCG) TABLET PO SCH (08:22)
[2018-12-11] MEDS: Finasteride 5 MG TABLET PO SCH (08:22)
[2018-12-11] MEDS: Chlorhexidine Rinse 15 ML MOUTHWASH MM SCH ×2 (08:23→19:54)
[2018-12-11] MEDS: Insulin LISPRO 300 UNITS/3 ML VIAL SQ SCH ×4 (08:23→20:06)
[2018-12-11] MEDS: Pantoprazole 40 MG VIAL IVP SCH (08:23)
[2018-12-11] MEDS: Amiodarone Premix 360 MG/200 ML BAG IVC SCH ×2 (08:29→19:54)
[2018-12-11] MEDS: *HR* OxyCODONE/APAP 5/325 TABLET PO PRN ×2 (10:00→17:09)
--- NOTE | 2018-12-11 16:20 | Electrocardiograph Report ---
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
--- NOTE | 2018-12-12 00:18 | Nephrology Progress Note ---
Date of Encounter: 12/11/18 Time of Encounter: 12:00 - Assessment and Plan (1) Chronic kidney disease Current Visit: No Status: Chronic SCr improved at 2.67, GFR 24 with more po fluids which is good, baseline typically GFR in the 30s Continue adequate po fluids approx 1.5 liters a day UOp improved at 940cc in the past 24hrs Continue to avoid nephrotoxins if possible Lytes stable Qualifiers: Chronic kidney disease stage: stage 3 (moderate) Qualified Code(s): N18.3 - Chronic kidney disease, stage 3 (moderate) (2) CAD (coronary artery disease) Current Visit: Yes Status: Acute s/p CABGx4, POD #6. Per Cardiothoracic surgery. Qualifiers: Coronary Disease-Associated Artery/Lesion type: [place] artery [place] vs. transplanted heart: [place] heart Associated angina: with unstable angina Qualified Code(s): I25.110 - Atherosclerotic heart disease of [place] coronary artery with unstable angina pectoris (3) Hypertension Current Visit: Yes Status: Chronic Stable Qualifiers: Hypertension type: essential hypertension Qualified Code(s): I10 - Essential (primary) hypertension (4) Diabetes mellitus, type II, insulin dependent Current Visit: No Status: Chronic Fairly stable. (5) Anemia Current Visit: Yes Status: Acute Hgb noted at 8.3, acute on chronic. Will monitor Transfusion parameters per primary team Qualifiers: Anemia type: unspecified type Qualified Code(s): D64.9 - Anemia, unspecifi ed (6) Hyponatremia Current Visit: Yes Status: Acute Sodium noted at 130, dropping slightly. likely from increased po fluids Subjective Principal diagnosis: CAD Interval history: Pt seen and examined sitting up in chair on amiodarone gtt with and friend at bedside. Per , pt has been having more po intake today Objective - Vital Signs Vital signs: Vital Signs Temp Pulse Resp BP Pulse Ox 12/11/18 23:42 16 95 12/11/18 23:00 98.5 F 59 16 117/62 94 12/11/18 21:00 65 125/61 12/11/18 20:05 15 94 12/11/18 19:18 97.5 F L 65 18 129/57 95 12/11/18 16:52 98.1 F 63 16 119/63 93 12/11/18 15:33 18 96 07/30/19 12:21 98.0 F 63 16 128/61 98 12/11/18 10:45 18 97 12/11/18 08:01 98.3 F 67 18 125/62 97 12/11/18 07:31 18 96 12/11/18 05:00 76 142/62 12/11/18 04:00 62 117/54 12/11/18 03:35 98.4 F 63 18 117/62 98 12/11/18 03:19 16 99 12/11/18 03:00 65 117/62 12/11/18 01:00 62 133/68 Intake and Output 12/11/18 12/11/18 12/12/18 15:59 23:59 07:59 Intake Total 800 / 1000 200 / 1000 Balance 800 / 750 200 / 750 Intake: IV Fluids 200 / 400 200 / 400 Amiodarone Drip Premix 360mg/ 200 / 400 200 / 400 200mL 360 mg In 200 ml @ 0.5 MG /MIN 16.667 mls/hr IVC CONT DANIELLE Rx#:[id number] Oral 600 / 600 Other: Meal Lunch Percent of Meal Consumed 90% Blood Glucose* 278 328 - General Appearance General appearance: Present: chronically ill (NAD) EENT: Present: ATNC, mucous membranes moist Neck: Present: no JVD, supple Additional Comments: good areation ant bilat Cardiology: Present: edema (trace LE bilat on compression stocking), normal S1, normal S2 Gastrointestinal: Present: no tenderness, no guarding Integumentary: Present: warm and dry Neurologic: Present: no focal deficit Musculoskeletal: Present: no deformities Psychiatric: Present: mood/affect appropriate, cooperative - Lab 12/11/18 01:47 12/11/18 01:47 - VTE Documentation of Mechanical Device: Graduated compression elastic hosiery Consult Discharge Plan - Plan Referrals: Yeni Mccord MD [Partnered Physician] - 01/04/19 11:20 am [place],Emilee Albarado CNP [Primary Care Provider] - (patient might go to rehab) Aleksey Joseph MD [Non-Partnered Physician] - 12/20/18 2:50 pm
[2018-12-12] MEDS: *HR* Heparin 5,000 UNIT/ML VIAL SQ SCH ×2 (05:40→17:11)
--- NOTE | 2018-12-12 07:03 | Cardiothoracic Progress Note ---
Date of Encounter: 12/12/18 Time of Encounter: 07:02 - Assessment and plan (1) CAD (coronary artery disease) Current Visit: Yes Status: Acute We will switch the patient from IV to by mouth amiodarone. Hopefully, he can be discharged to a rehabilitation facility in the next day or 2. Qualifiers: Coronary Disease-Associated Artery/Lesion type: [place] artery [place] vs. transplanted heart: [place] heart Associated angina: with unstable angina Qualified Code(s): I25.110 - Atherosclerotic heart disease of [place] coronary artery with unstable angina pectoris - Subjective Interval history: The patient has no complaints. Vital Signs, Last 4 Hours Temp Pulse Resp BP Pulse Ox 12/12/18 06:00 66 136/59 12/12/18 05:00 63 116/61 12/12/18 04:00 64 109/56 12/12/18 03:45 16 94 12/12/18 03:43 98.2 F 65 18 123/62 93 Oxgyen Flow Rate Oxygen Flow Rate (LPM) 0 Clinical Data, last 8 Hours Output, Urine Amount 150 Output, Urine Amount 200 Weight 12/10/18 12/11/18 12/12/18 23:59 23:59 23:59 Weight 83.3 kg 84.5 kg 85.5 kg Lungs are clear to percussion and auscultation. Heart is in a normal sinus rhythm. All incisions are healing well without signs of infection and the sternum is stable. - Labs 12/11/18 01:47 12/11/18 01:47 - VTE Documentation of Mechanical Device: Graduated compression elastic hosiery Consult Discharge Plan - Plan Referrals: Yeni Mccord MD [Partnered Physician] - 01/04/19 11:20 am Emilee Conrad CNP [Primary Care Provider] - (patient might go to rehab) Aleksey Joseph MD [Non-Partnered Physician] - 12/20/18 2:50 pm
[2018-12-12] MEDS: Insulin LISPRO 300 UNITS/3 ML VIAL SQ SCH ×4 (08:36→22:51)
[2018-12-12] MEDS: amLODIPine 5 MG TABLET PO SCH (08:37)
[2018-12-12] MEDS: Finasteride 5 MG TABLET PO SCH (08:37)
[2018-12-12] MEDS: Cholecalciferol (D-3) 1,000 UNIT (25MCG) TABLET PO SCH (08:37)
[2018-12-12] MEDS: *HR* Amiodarone 200 MG TABLET PO SCH (08:37)
[2018-12-12] MEDS: Aspirin Enteric Coated 81 MG Tablet PO SCH (08:37)
[2018-12-12] MEDS: Chlorhexidine Rinse 15 ML MOUTHWASH MM SCH ×2 (08:37→21:15)
[2018-12-12] MEDS: Pantoprazole 40 MG VIAL IVP SCH (08:37)
[2018-12-12 14:25] LABS: Calcium 7.6 mg/dL (8.6-10.3); Potassium 4.4 mEq/L (3.5-5.1)
--- NOTE | 2018-12-12 16:57 | Nephrology Progress Note ---
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 Per Cardiothoracic surgery. Qualifiers: Coronary Disease-Associated Artery/Lesion type: [place] artery [place] vs. transplanted heart: [place] heart Associated angina: with unstable angina Qualified Code(s): I25.110 - Atherosclerotic heart disease of [place] coronary ar [place] with unstable angina pectoris (3) Hypertension Status: Chronic Stable Qualifiers: Hypertension type: essential hypertension Qualified Code(s): I10 - Essential (primary) hypertension (4) Diabetes mellitus, type II, insulin dependent Status: Chronic Fairly stable. Subjective Principal diagnosis: CAD Interval history: Pt seen and examined with and friend at bedside having difficulty coughing due to pain on incision lines. Was able to ambulate alittle today Objective - Vital Signs Vital signs: Vital Signs Temp Pulse Resp BP Pulse Ox 12/12/18 16:42 98.2 F 60 18 118/63 96 12/12/18 16:20 18 96 12/12/18 11:59 97.8 F 59 18 107/60 96 12/12/18 10:53 18 95 12/12/18 07:51 98.6 F 60 18 124/64 95 12/12/18 07:38 18 94 12/12/18 06:00 66 136/59 12/12/18 05:00 63 116/61 12/12/18 04:00 64 109/56 12/12/18 03:45 16 94 12/12/18 03:43 98.2 F 65 18 123/62 93 12/12/18 02:00 62 125/62 12/12/18 01:00 61 125/61 12/12/18 00:00 60 117/62 12/11/18 23:42 16 95 12/11/18 23:00 98.5 F 59 16 117/62 94 12/11/18 22:00 62 115/67 12/11/18 21:00 65 125/61 12/11/18 20:05 15 94 12/11/18 19:18 97.5 F L 65 18 129/57 95 Intake and Output 12/12/18 12/12/18 12/12/18 07:59 15:59 23:59 Intake Total 800 / 1400 600 / 1400 Output Total 350 / 350 Balance 450 / 1050 600 / 1050 Intake: Oral 800 / 1400 600 / 1400 Output: Urine 350 / 350 Other: Meal Lunch Percent of Meal Consumed 100% Weight 85.5 kg Blood Glucose* 275 305 119 Patient Weight 12/12/18 23:59 Weight 85.5 kg - General Appearance General appearance: Present: well-developed, well-nourished, fatigue EENT: Present: ATNC, mucous membranes moist Neck: Present: no JVD, supple Additional Comments: good areation with transmitted upper airways sounds Cardiology: Present: no edema, normal S1, normal S2 Gastrointestinal: Present: no tenderness, no guarding Integumentary: Present: warm and dry Neurologic: Present: no focal deficit Musculoskeletal: Present: no deformities Psychiatric: Present: mood/affect appropriate, cooperative - Lab 12/16/18 06:34 12/18/18 01:30 Most recent lab results 12/12/18 13:33 Calcium 7.6 L - VTE Documentation of Mechanical Device: Graduated compression elastic hosiery Consult Discharge Plan - Plan Referrals: Yeni Mccord MD [Partnered Physician] - 01/04/19 11:20 am Conrad,Emilee Albarado CNP [Primary Care Provider] - (patient is going to rehab no PCP appointment needed) Aleksey Joseph MD [Non-Partnered Physician] - 01/10/19 9:00 am
[2018-12-12] MEDS ORDERED: 0.9 % Sodium Chloride 1,000 ML IVC SCH (18:30)
[2018-12-12 19:25] LABS: Sodium, Urine 23.1 mEq/L
[2018-12-12 19:42] LABS: Bilirubin,Urine Negative (Negative); Blood,Urine Small (Negative); Clarity,Urine Clear (Clear); Color,Urine Yellow (Yellow); Glucose,Urine (UA) Normal (Normal); Hyaline Casts,Urine None Seen per lpf (None-Few); Ketones,Urine Trace mg/dL (Negative); Leukocyte Esterase,Urine Negative (Negative); Nitrite,Urine Negative (Negative); PH,Urine 5.5 pH Units (5.0-8.0); Protein,Urine 100 mg/dL (Neg-Trace); RBC,Urine 0-3 per hpf (0-3); Specific Gravity,Urine 1.025 (1.010-1.025); Squamous Epithelial Cell,Urine Many per lpf (None-Few); Urobilinogen,Urine Normal (Normal)
[2018-12-12 20:07] LABS: Bacteria,Urine Few per hpf (None-Few); Renal Epithelial Cells,Urine Few per hpf (None-Few)
[2018-12-13 04:47] LABS: Calcium 7.1 mg/dL (8.6-10.3); Potassium 4.3 mEq/L (3.5-5.1)
[2018-12-13] MEDS: *HR* Heparin 5,000 UNIT/ML VIAL SQ SCH ×2 (05:26→17:01)
[2018-12-13] MEDS: *HR* Amiodarone 200 MG TABLET PO SCH (07:49)
[2018-12-13] MEDS: amLODIPine 5 MG TABLET PO SCH (07:49)
[2018-12-13] MEDS: Cholecalciferol (D-3) 1,000 UNIT (25MCG) TABLET PO SCH (07:49)
[2018-12-13] MEDS: Chlorhexidine Rinse 15 ML MOUTHWASH MM SCH ×2 (07:49→20:50)
[2018-12-13] MEDS: Pantoprazole 40 MG VIAL IVP SCH (07:49)
[2018-12-13] MEDS: Finasteride 5 MG TABLET PO SCH (07:49)
[2018-12-13] MEDS: Aspirin Enteric Coated 81 MG Tablet PO SCH (07:49)
[2018-12-13] MEDS: Insulin LISPRO 300 UNITS/3 ML VIAL SQ SCH ×4 (07:50→20:49)
--- NOTE | 2018-12-13 08:30 | Cardiothoracic Progress Note ---
Date of Encounter: 12/13/18 Time of Encounter: 08:27 - Assessment and plan (1) CAD (coronary artery disease) Current Visit: Yes Status: Acute The patient is recovering well from his CABG4. The patient's renal function worsened during the last 24 hours and he is being followed by the nephrology service. He will continue ambulating in the hallways yesterday. He is considering transfer to an inpatient rehabilitation unit as a bridge to home once his renal function has stabilized. The assessment and plan as outlined above was discussed with the patient and/or family members who expressed understanding and agreement. All questions were answered. Qualifiers: Coronary Disease-Associated Artery/Lesion type: [place] artery [place] vs. transplanted heart: [place] heart Associated angina: with unstable angina Qualified Code(s): I25.110 - Atherosclerotic heart disease of [place] coronary artery with unstable angina pectoris - Subjective Procedure(s) Performed: POD#8 S/P CABG4 Interval history: The patient remained hemodynamically stable overnight. He was able to ambulate in his room and for a short distance in the hallways yesterday. He has no complaints. Vital Signs, Last 4 Hours Temp Pulse Resp BP Pulse Ox 12/13/18 07:19 98.1 F 64 19 128/58 95 Oxgyen Flow Rate Oxygen Flow Rate (LPM) 0 Weight 12/11/18 12/12/18 12/13/18 23:59 23:59 23:59 Weight 84.5 kg 85.5 kg 86.9 kg - Physical Examination General: Conversant, No Apparent Distress Neck: No JVD, Normal carotid pulses Cardiac: Reg Rate and Rhythm, Normal S1 and S2, No Murmur Incision: No signs of infection, Dry/intact dressing Sternum: Stable Pacing Wires: In place Lungs: Normal Breath Sounds, No Wheeze, Rales, Rhonchi Neuro: Alert and responsive, No focal deficits noted Vascular: Normal capillary refill Extremities: No Clubbing, No Cyanosis, No Edema - Labs 12/11/18 01:47 12/13/18 04:04 Lab Results, Last 24 hours 12/12/18 12/13/18 13:33 04:04 Sodium 128 L 129 L Potassium 4.4 4.3 Chloride 99 104 Carbon Dioxide 18 L 16 L BUN 50 H 52 H Creatinine 3.09 H 3.16 H Glucose 315 H 247 H Calcium 7.6 L 7.1 L - VTE Documentation of Mechanical Device: Graduated compression elastic hosiery Consult Discharge Plan - Plan Referrals: Yeni Mccord MD [Partnered Physician] - 01/04/19 11:20 am Conrad,Emilee Albarado CNP [Primary Care Provider] - (patient is going to rehab no PCP appointment needed) Aleksey Joseph MD [Non-Partnered Physician] - 12/20/18 2:50 pm
[2018-12-13] MEDS ORDERED: 0.9 % Sodium Chloride 1,000 ML ONE (17:23)
[2018-12-14] MEDS: *HR* Heparin 5,000 UNIT/ML VIAL SQ SCH ×2 (04:59→16:32)
[2018-12-14 06:36] LABS: Calcium 7.1 mg/dL (8.6-10.3); Potassium 4.2 mEq/L (3.5-5.1)
--- NOTE | 2018-12-14 06:43 | Nephrology Progress Note ---
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 Per Cardiothoracic surgery. Qualifiers: Coronary Disease-Associated Artery/Lesion type: [place] artery [place] vs. transplanted heart: [place] heart Associated angina: with unstable angina [place] lified Code(s): I25.110 - Atherosclerotic heart disease of [place] coronary artery with unstable angina pectoris (3) Hypertension Current Visit: Yes Status: Chronic Stable Qualifiers: Hypertension type: essential hypertension Qualified Code(s): I10 - Essential (primary) hypertension (4) Anemia Current Visit: Yes Status: Acute Hgb stable at 8.3 on last check, will monitor from time to time Qualifiers: Anemia type: unspecified type Qualified Code(s): D64.9 - Anemia, unspecified (5) Hyponatremia Current Visit: Yes Status: Acute Sodium noted at 130, improving with NS Encouarged a little salt in diet Subjective Principal diagnosis: CAD Interval history: Pt seen and examined with at bedside sitting up in chair. Gutierrez placed overnight due to residuals on bladder scan. Per , feels better and ambulating well. Objective - Vital Signs Vital signs: Vital Signs Temp Pulse Resp BP Pulse Ox 12/14/18 03:57 18 94 12/14/18 03:37 98 F 60 17 123/59 95 12/14/18 00:06 18 95 12/13/18 23:17 98.1 F 58 17 103/61 94 12/13/18 20:42 16 93 12/13/18 19:23 98.4 F 64 19 127/69 12/13/18 16:50 98.1 F 61 18 98 12/13/18 15:52 16 93 12/13/18 14:32 16 110/58 93 12/13/18 12:05 59 12/13/18 11:41 98.2 F 60 18 110/58 97 12/13/18 08:39 64 12/13/18 08:01 16 128/58 96 12/13/18 07:19 98.1 F 64 19 128/58 95 Intake and Output 12/13/18 12/13/18 12/14/18 15:59 23:59 07:59 Intake Total 240 / 1050 310 / 1050 Output Total 500 / 1350 525 / 525 Balance 240 / -300 -190 / -300 -525 / -525 Intake: Oral 240 / 1050 310 / 1050 Output: Catheter 500 / 1350 525 / 525 Other: Meal Lunch Dinner Percent of Meal Consumed 90% 90% Weight 88.4 kg Blood Glucose* 316 214 Patient Weight 12/14/18 23:59 Weight 88.4 kg - General Appearance General appearance: Present: fatigue (NAD) EENT: Present: ATNC, mucous membranes moist Neck: Present: no JVD, supple Additional Comments: good areation bilat Cardiology: Present: edema (mild LE with compression stockings bilat), normal S1, normal S2 Gastrointestinal: Present: no tenderness, no guarding Integumentary: Present: warm and dry Neurologic: Present: no focal deficit Musculoskeletal: Present: no deformities Psychiatric: Present: mood/affect appropriate, cooperative - Lab 12/11/18 01:47 12/14/18 05:57 Most recent lab results 12/14/18 05:57 Calcium 7.1 L - VTE Documentation of Mechanical Device: Graduated compression elastic hosiery Consult Discharge Plan - Plan Referrals: Yeni Mccord MD [Partnered Physician] - 01/04/19 11:20 am [place],Emilee Albarado CNP [Primary Care Provider] - (patient is going to rehab no PCP appointment needed) Aleksey Joseph MD [Non-Partnered Physician] - 12/20/18 2:50 pm
--- NOTE | 2018-12-14 07:10 | Cardiothoracic Progress Note ---
Date of Encounter: 12/14/18 Time of Encounter: 06:41 - Assessment and plan (1) CAD (coronary artery disease) Current Visit: Yes Status: Acute The patient is recovering well from his CABG4. The patient's renal function appears to have plateaued during the last 24 hours and he is being followed by the nephrology service. He will continue ambulating in the hallways yesterday. He is considering transfer to an inpatient rehabilitation unit as a bridge to home once his renal function has stabilized. The assessment and plan as outlined above was discussed with the patient and/or family members who expressed understanding and agreement. All questions were answered. Qualifiers: Coronary Disease-Associated Artery/Lesion type: [place] artery [place] vs. transplanted heart: [place] heart Associated angina: with unstable angina Qualified Code(s): I25.110 - Atherosclerotic heart disease of [place] coronary artery with unstable angina pectoris - Subjective Procedure(s) Performed: POD#9 S/P CABG4 Interval history: The patient remained hemodynamically stable overnight. He was able to ambulate in his room and for a short distance in the hallways yesterday. He has no com plaints. Vital Signs, Last 4 Hours Temp Pulse Resp BP Pulse Ox 12/14/18 07:02 98.5 F 85 16 125/56 94 12/14/18 03:57 18 94 12/14/18 03:37 98 F 60 17 123/59 95 Oxgyen Flow Rate Oxygen Flow Rate (LPM) 0 Weight 12/12/18 12/13/18 12/14/18 23:59 23:59 23:59 Weight 85.5 kg 86.9 kg 88.4 kg - Physical Examination General: Conversant, No Apparent Distress Neck: No JVD, Normal carotid pulses Cardiac: Reg Rate and Rhythm, Normal S1 and S2, No Murmur Incision: No signs of infection, Dry/intact dressing Sternum: Stable Pacing Wires: In place Lungs: Normal Breath Sounds, No Wheeze, Rales, Rhonchi Neuro: Alert and responsive, No focal deficits noted Vascular: Normal capillary refill Extremities: No Clubbing, No Cyanosis, No Edema - Labs 12/11/18 01:47 12/14/18 05:57 Lab Results, Last 24 hours 12/14/18 05:57 Sodium 130 L Potassium 4.2 Chloride 104 Carbon Dioxide 16 L BUN 50 H Creatinine 3.12 H Glucose 141 H Calcium 7.1 L - VTE Documentation of Mechanical Device: Graduated compression elastic hosiery Consult Discharge Plan - Plan Referrals: Yeni Mccord MD [Partnered Physician] - 01/04/19 11:20 am Conrad,Emilee Albarado CNP [Primary Care Provider] - (patient is going to rehab no PCP appointment needed) Aleksey Joseph MD [Non-Partnered Physician] - 12/20/18 2:50 pm
[2018-12-14] MEDS: Pantoprazole 40 MG VIAL IVP SCH (07:48)
[2018-12-14] MEDS: Chlorhexidine Rinse 15 ML MOUTHWASH MM SCH ×2 (07:48→20:02)
[2018-12-14] MEDS: *HR* Amiodarone 200 MG TABLET PO SCH (07:48)
[2018-12-14] MEDS: Finasteride 5 MG TABLET PO SCH (07:49)
[2018-12-14] MEDS: Insulin LISPRO 300 UNITS/3 ML VIAL SQ SCH ×4 (07:49→20:03)
[2018-12-14] MEDS: Cholecalciferol (D-3) 1,000 UNIT (25MCG) TABLET PO SCH (07:49)
[2018-12-14] MEDS: Aspirin Enteric Coated 81 MG Tablet PO SCH (07:49)
[2018-12-14] MEDS: amLODIPine 5 MG TABLET PO SCH (07:49)
[2018-12-14 08:38] LABS: Calcium 7.2 mg/dL (8.6-10.3); Potassium 4.4 mEq/L (3.5-5.1)
[2018-12-14] MEDS: *HR* OxyCODONE/APAP 5/325 TABLET PO PRN (11:48)
--- NOTE | 2018-12-14 14:11 | Nephrology Progress Note ---
Date of Encounter: 12/14/18 Time of Encounter: 14:11 - Assessment and Plan (1) Acute kidney injury superimposed on chronic kidney disease Current Visit: Yes Status: Acute Patient with SAL on CKD. Renal function improving. Avoid nephrotoxic agents. Adjust medications as needed for renal function. (2) Chronic kidney disease Current Visit: No Status: Chronic Qualifiers: Chronic kidney disease stage: stage 3 (moderate) Qualified Code(s): N18.3 - Chronic kidney disease, stage 3 (moderate) (3) CAD (coronary artery disease) Current Visit: Yes Status: Acute s/p CABGx4, POD #8. Per Cardiothoracic surgery. Qualifiers: Coronary Disease-Associated Artery/Lesion type: [place] artery [place] vs. transplanted heart: [place] heart Associated angina: with unstable angina Qualified Code(s): I25.110 - Atherosclerotic heart disease of [place] coronary artery with unstable angina pectoris (4) Hypertension Current Visit: Yes Status: Chronic Stable Qualifiers: Hypertension type: essential hypertension Qualified Code(s): I10 - Essential (primary) hypertension (5) Anemia Current Visit: Yes Status: Acute Qualifiers: Anemia type: unspecified type Qualified Code(s): D64.9 - Anemia, unspecified (6) Hyponatremia Current Visit: Yes Status: Acute Subjective Principal diagnosis: CAD Interval history: Patient seen. No new complaints. ROS stable. Objective - Vital Signs Vital signs: Vital Signs Temp Pulse Resp BP Pulse Ox 12/14/18 11:05 98.2 F 61 18 108/72 94 12/14/18 08:03 18 94 12/14/18 07:56 61 12/14/18 07:02 98.5 F 85 16 125/56 94 12/14/18 03:57 18 94 12/14/18 03:37 98 F 60 17 123/59 95 12/14/18 00:06 18 95 12/13/18 23:17 98.1 F 58 17 103/61 94 12/13/18 20:42 16 93 12/13/18 19:23 98.4 F 64 19 127/69 12/13/18 16:50 98.1 F 61 18 98 12/13/18 15:52 16 93 12/13/18 14:32 16 110/58 93 Intake and Output 12/13/18 12/14/18 12/14/18 23:59 07:59 15:59 Intake Total 310 / 1050 480 / 480 Output Total 500 / 1350 1000 / 1000 Balance -190 / -300 -1000 / -520 480 / -520 Intake: Oral 310 / 1050 480 / 480 Output: Catheter 500 / 1350 1000 / 1000 Other: Meal Dinner Lunch Percent of Meal Consumed 90% 25% Weight 88.4 kg Blood Glucose* 214 155 180 Patient Weight 12/14/18 23:59 Weight 88.4 kg - General Appearance General appearance: Present: well-developed, well-nourished EENT: Present: ATNC Neck: Present: supple Cardiology: Present: regular rate Integumentary: Present: warm and dry Neurologic: Present: alert and oriented x3 Musculoskeletal: Present: no cyanosis Psychiatric: Present: mood/affect appropriate - Lab 12/16/18 06:34 12/16/18 06:34 Most recent lab results 12/14/18 12/14/18 05:57 08:02 Calcium 7.1 L 7.2 L - VTE Documentation of Mechanical Device: Graduated compression elastic hosiery Consult Discharge Plan - Plan Referrals: Yeni Mccord MD [Partnered Physician] - 01/04/19 11:20 am Emilee Conrad CNP [Primary Care Provider] - (patient is going to rehab no PCP appointment needed) Aleksey Joseph MD [Non-Partnered Physician] - 12/20/18 2:50 pm
[2018-12-15] MEDS: *HR* Heparin 5,000 UNIT/ML VIAL SQ SCH ×2 (04:57→16:56)
[2018-12-15] MEDS: *HR* Amiodarone 200 MG TABLET PO SCH (08:57)
[2018-12-15] MEDS: Finasteride 5 MG TABLET PO SCH (08:57)
[2018-12-15] MEDS: Chlorhexidine Rinse 15 ML MOUTHWASH MM SCH ×2 (08:57→20:49)
[2018-12-15] MEDS: Pantoprazole 40 MG VIAL IVP SCH (08:57)
[2018-12-15] MEDS: amLODIPine 5 MG TABLET PO SCH (08:58)
[2018-12-15] MEDS: Insulin LISPRO 300 UNITS/3 ML VIAL SQ SCH ×4 (08:58→20:51)
[2018-12-15] MEDS: Cholecalciferol (D-3) 1,000 UNIT (25MCG) TABLET PO SCH (08:58)
[2018-12-15] MEDS: Aspirin Enteric Coated 81 MG Tablet PO SCH (08:58)
--- NOTE | 2018-12-15 11:47 | Cardiothoracic Progress Note ---
Date of Encounter: 12/15/18 Time of Encounter: 11:45 - Assessment and plan (1) CAD (coronary artery disease) Current Visit: Yes Status: Acute The assessment and plan as outlined above was discussed with the patient and/or family members who expressed understanding and agreement. All questions were answered. no changes in current care Qualifiers: Coronary Disease-Associated Artery/Lesion type: [place] artery [place] vs. transplanted heart: [place] heart Associated angina: with unstable angina Qualified Code(s): I25.110 - Atherosclerotic heart disease of [place] coronary artery with unstable angina pectoris (2) Chronic kidney disease Current Visit: No Status: Chronic The assessment and plan as outlined above was discussed with the patient and/or family members who expressed understanding and agreement. All questions were answered. appreciate nephrology note. cr stable. recheck labs in am Qualifiers: Chronic kidney disease stage: stage 3 (moderate) Qualified Code(s): N18.3 - Chronic kidney disease, stage 3 (moderate) (3) Hypertension Current Visit: Yes Status: Chronic The assessment and plan as outlined above was discussed with the patient and/or family members who expressed understanding and agreement. All questions were ans wered. Qualifiers: Hypertension type: essential hypertension Qualified Code(s): I10 - Essential (primary) hypertension Vital Signs, Last 4 Hours Temp Pulse Resp Pulse Ox 12/15/18 11:42 98.0 F 61 18 12/15/18 08:22 16 97 Oxgyen Flow Rate Oxygen Flow Rate (LPM) 0 Weight 12/13/18 12/14/18 12/15/18 23:59 23:59 23:59 Weight 86.9 kg 88.4 kg 88.5 kg - Physical Examination General: Conversant, No Apparent Distress, Well developed, Well nourished HEENT: Atraumatic, Normocephaly Neck: No JVD Cardiac: Reg Rate and Rhythm, Normal S1 and S2 Incision: No signs of infection Lungs: Decreased breath sounds Neuro: Alert and responsive, No focal deficits noted, Cranial nerves intact, Motor nerves intact Abdomen: Soft, Non-tender, Other (hypoactive bs ) Skin: Other (3+ edema. ) - Labs 12/11/18 01:47 12/14/18 08:02 - VTE Documentation of Mechanical Device: Graduated compression elastic hosiery Consult Discharge Plan - Plan Referrals: Yeni Mccord MD [Partnered Physician] - 01/04/19 11:20 am Conrad,Emilee Albarado CNP [Primary Care Provider] - (patient is going to rehab no PCP appointment needed) Aleksey Joseph MD [Non-Partnered Physician] - 12/20/18 2:50 pm
--- NOTE | 2018-12-15 13:10 | Nephrology Progress Note ---
Date of Encounter: 12/15/18 Time of Encounter: 13:09 - Assessment and Plan (1) Acute kidney injury superimposed on chronic kidney disease Current Visit: Yes Status: Acute Patient with SAL on CKD. Renal function improving. Avoid nephrotoxic agents. Adjust medications as needed for renal function. (2) Chronic kidney disease Current Visit: No Status: Chronic Qualifiers: Chronic kidney disease stage: stage 3 (moderate) Qualified Code(s): N18.3 - Chronic kidney disease, stage 3 (moderate) (3) CAD (coronary artery disease) Current Visit: Yes Status: Acute Qualifiers: Coronary Disease-Associated Artery/Lesion type: [place] artery [place] vs. transplanted heart: [place] heart Associated angina: with unstable angina Qualified Code(s): I25.110 - Atherosclerotic heart disease of [place] coronary artery with unstable angina pectoris (4) Hypertension Current Visit: Yes Status: Chronic Qualifiers: Hypertension type: essential hypertension Qualified Code(s): I10 - Essential (primary) hypertension (5) Anemia Current Visit: Yes Status: Acute Qualifiers: Anemia type: unspecified type Qualified Code(s): D64.9 - Anemia, unspecified (6) Hyponatremia Current Visit: Yes Status: Acute Subjective Principal diagnosis: CAD Interval history: Patient seen. No new complaint. ROS stable. Objective - Vital Signs Vital signs: Vital Signs Temp Pulse Resp BP Pulse Ox 12/15/18 11:52 15 93 12/15/18 11:42 98.0 F 61 18 121/63 95 12/15/18 08:50 98.0 F 61 18 97 12/15/18 08:22 16 97 12/15/18 07:33 98.1 F 58 20 129/59 96 12/15/18 04:53 15 97 12/15/18 03:11 98.1 F 59 20 115/63 97 12/14/18 23:08 97.9 F 59 20 103/58 96 12/14/18 23:00 18 97 12/14/18 19:55 98 F 63 20 113/66 93 12/14/18 19:39 16 94 12/14/18 16:39 18 94 12/14/18 16:03 98.6 F 59 16 124/63 94 Intake and Output 12/14/18 12/15/18 12/15/18 23:59 07:59 15:59 Intake Total 440 / 920 120 / 120 Output Total 350 / 1350 1000 / 1250 250 / 1250 Balance 90 / -430 -1000 / -1130 -130 / -1130 Intake: Oral 440 / 920 120 / 120 Output: Urine 0 / 0 Catheter 350 / 1350 1000 / 1250 250 / 1250 Urethral (Benz) 200 / 200 Other: Meal Dinner Breakfast Percent of Meal Consumed 50% 95% Weight 88.5 kg Blood Glucose* 327 171 229 Patient Weight 12/15/18 23:59 Weight 88.5 kg - General Appearance General appearance: Present: well-developed, well-nourished EENT: Present: ATNC Cardiology: Present: regular rate Neurologic: Present: alert and oriented x3 - Lab 12/16/18 06:34 12/16/18 06:34 - VTE Documentation of Mechanical Device: Graduated compression elastic hosiery Consult Discharge Plan - Plan Referrals: Yeni Mccord MD [Partnered Physician] - 01/04/19 11:20 am Conrad,Emilee Albarado CNP [Primary Care Provider] - (patient is going to rehab no PCP appointment needed) Aleksey Joseph MD [Non-Partnered Physician] - 12/20/18 2:50 pm
--- NOTE | 2018-12-15 15:24 | Cardiothoracic Progress Note ---
Date of Encounter: 12/15/18 Time of Encounter: 15:22 Vital Signs, Last 4 Hours Temp Pulse Resp BP Pulse Ox 12/15/18 12:25 98.0 F 61 15 121/63 93 12/15/18 11:52 15 93 12/15/18 11:42 98.0 F 61 18 121/63 95 Oxgyen Flow Rate Oxygen Flow Rate (LPM) 0 Clinical Data, last 8 Hours Output, Urine Amount 0 Weight 12/13/18 12/14/18 12/15/18 23:59 23:59 23:59 Weight 86.9 kg 88.4 kg 88.5 kg - Physical Examination General: No Apparent Distress - Labs 12/11/18 01:47 12/14/18 08:02 - VTE Documentation of Mechanical Device: Graduated compression elastic hosiery Consult Discharge Plan - Plan Referrals: Yeni Mccord MD [Partnered Physician] - 01/04/19 11:20 am Conrad,Emilee Albarado CNP [Primary Care Provider] - (patient is going to rehab no PCP appointment needed) Aleksey Joseph MD [Non-Partnered Physician] - 12/20/18 2:50 pm
--- NOTE | 2018-12-15 15:30 | Cardiothoracic Progress Note ---
Date of Encounter: 12/15/18 Time of Encounter: 15:27 - Assessment and plan (1) CAD (coronary artery disease) Current Visit: Yes Status: Acute The assessment and plan as outlined above was discussed with the patient and/or family members who expressed understanding and agreement. All questions were answered. Qualifiers: Coronary Disease-Associated Artery/Lesion type: [place] artery [place] vs. transplanted heart: [place] heart Associated angina: with unstable angina Qualified Code(s): I25.110 - Atherosclerotic heart disease of [place] coronary artery with unstable angina pectoris Vital Signs, Last 4 Hours Temp Pulse Resp BP Pulse Ox 12/15/18 12:25 98.0 F 61 15 121/63 93 12/15/18 11:52 15 93 12/15/18 11:42 98.0 F 61 18 121/63 95 Oxgyen Flow Rate Oxygen Flow Rate (LPM) 0 Clinical Data, last 8 Hours Output, Urine Amount 0 Weight 12/13/18 12/14/18 12/15/18 23:59 23:59 23:59 Weight 86.9 kg 88.4 kg 88.5 kg - Labs 12/11/18 01:47 12/14/18 08:02 - VTE Documentation of Mechanical Device: Graduated compression elastic hosiery Consult Discharge Plan - Plan Referrals: Yeni Mccord MD [Partnered Physician] - 01/04/19 11:20 am Emilee Conrad CNP [Primary Care Provider] - (patient is going to rehab no PCP appointment needed) Aleksey Joseph MD [Non-Partnered Physician] - 12/20/18 2:50 pm
--- NOTE | 2018-12-15 17:42 | Event Note ---
Date of Encounter: 12/15/18 Time of Encounter: 17:10 Code Blue call: 88 y/o male here s/p CABG. Now with renal failure as well. Pt was up walking in [place]. Stopped outside room to lean against counter. Became very fatigued and heart rate dropped to 30s. No syncope. Spontaneous resolution of heart rate. Pt subsequently diaphoretic and clammy. Denies CP or worsening dyspnea. No abd pain. No leg pain. Has had issues with pulmonary edema and overall edema. Upon my arrival pt up in chair. He appeared diaphoretic and heart rate in 70s. BP 118/78/ RR 28. O2sat 98% on 3L He is alert and oriented. at bedside. Normocephalic. HERNANDEZ. EOMI. Mucus membranes dry Neck supple. No overt JVD noted. Heart reg - no murmur heard now Lungs clear posteriorly. Abd soft. Incision intact. Edema present of legs and hands. No calf pain. EKG - I/P 1. Probable vasovagal episode - pt was up walking and became diaphoretic and bradycardic with spontaneous resolution. No acute intervention needed at this time. 2. Acute renal failure 3. CAD s/p CABG. At this time I am going to order CBC (last hemoglobin 8.3 on 12/11) and chemistry as well as CXR (last was on 12/07). Also will draw ionized calcium, mag and aroldo CCM 37min Dr. Parks to be notified by nursing.
[2018-12-15 18:09] LABS: VBG Ionized Calcium 1.08 mmol/L (1.15-1.35)
[2018-12-15 18:09] LABS: Basophils % 0.1 %; Eosinophils # 0.1 K/mcL (0.0-0.6); Eosinophils % 1.2 %; Hematocrit 26.5 % (37.5-50.1); Hemoglobin 8.5 g/dL (12.9-16.9); Immature Granulocytes % 1.6 % (0-4); Lymphocytes % 14.3 %; Mean Corpuscular HGB Conc 32.1 g/dL (31.6-35.5); Mean Corpuscular Hemoglobin 29.2 pg (28.0-33.3); Mean Corpuscular Volume 91.1 fL (83.0-100.0); Monocytes # 0.7 K/mcL (0.0-1.3); Monocytes % 10.1 %; Neutrophils # 4.9 K/mcL (1.6-8.9); Platelet Count 259 K/mcL (140-400); Red Blood Count 2.91 M/mcL (4.19-5.50); Red Cell Distribution Width 16.1 % (11.5-14.5); Segmented Neutrophils % 72.7 %; White Blood Count 6.7 K/mcL (4.3-11.1)
[2018-12-15 18:32] LABS: Albumin 2.8 g/dL (3.5-5.7); Bilirubin,Total 0.4 mg/dL (0.3-1.0); Calcium 7.3 mg/dL (8.6-10.3); Globulin 2.7 g/dL (2.4-3.5); Magnesium 2.6 mg/dL (1.6-2.6); Phosphorous 3.6 mg/dL (2.7-4.5); Potassium 4.7 mEq/L (3.5-5.1); Total Protein 5.5 g/dL (6.4-8.9)
[2018-12-15] MEDS: Sennosides/Docusate Sodium TABLET PO SCH (20:48)
[2018-12-16] MEDS: *HR* Heparin 5,000 UNIT/ML VIAL SQ SCH ×2 (05:11→16:50)
[2018-12-16 07:38] LABS: Hematocrit 24.9 % (37.5-50.1); Mean Corpuscular HGB Conc 32.1 g/dL (31.6-35.5); Mean Corpuscular Hemoglobin 29.3 pg (28.0-33.3); Mean Corpuscular Volume 91.2 fL (83.0-100.0); Mean Platelet Volume 10.9 fL (9.4-12.4); Platelet Count 247 K/mcL (140-400); Red Blood Count 2.73 M/mcL (4.19-5.50); Red Cell Distribution Width 16.1 % (11.5-14.5); White Blood Count 6.5 K/mcL (4.3-11.1)
[2018-12-16] MEDS: Chlorhexidine Rinse 15 ML MOUTHWASH MM SCH ×2 (07:39→21:19)
[2018-12-16] MEDS: Pantoprazole 40 MG VIAL IVP SCH (07:39)
[2018-12-16] MEDS: Insulin LISPRO 300 UNITS/3 ML VIAL SQ SCH ×4 (07:39→21:21)
[2018-12-16] MEDS: Cholecalciferol (D-3) 1,000 UNIT (25MCG) TABLET PO SCH (07:40)
[2018-12-16] MEDS: amLODIPine 5 MG TABLET PO SCH (07:40)
[2018-12-16] MEDS: Aspirin Enteric Coated 81 MG Tablet PO SCH (07:40)
[2018-12-16] MEDS: Sennosides/Docusate Sodium TABLET PO SCH ×2 (07:40→21:19)
[2018-12-16] MEDS: Finasteride 5 MG TABLET PO SCH (07:40)
[2018-12-16 08:00] LABS: Calcium 7.3 mg/dL (8.6-10.3); Magnesium 2.6 mg/dL (1.6-2.6); Potassium 4.8 mEq/L (3.5-5.1)
--- NOTE | 2018-12-16 10:09 | Nephrology Progress Note ---
Date of Encounter: 12/16/18 Time of Encounter: 10:08 - Assessment and Plan (1) Acute kidney injury superimposed on chronic kidney disease Current Visit: Yes Status: Acute Patient with SAL on CKD. Renal function at plateau. Avoid nephrotoxic agents. Adjust medications as needed for renal function. Patient with metabolic acidosis. Will add sodium bicarbonate. (2) Chronic kidney disease Current Visit: No Status: Acute Qualifiers: Chronic kidney disease stage: stage 3 (moderate) Qualified Code(s): N18.3 - Chronic kidney disease, stage 3 (moderate) (3) CAD (coronary artery disease) Current Visit: Yes Status: Acute Qualifiers: Coronary Disease-Associated Artery/Lesion type: [place] artery [place] vs. transplanted heart: [place] heart Associated angina: with unstable angina Qualified Code(s): I25.110 - Atherosclerotic heart disease of [place] coronary artery with unstable angina pectoris (4) Hypertension Current Visit: Yes Status: Chronic Qualifiers: Hypertension type: essential hypertension Qualified Code(s): I10 - Essential (primary) hypertension (5) Anemia Current Visit: Yes Status: Acute Qualifiers: Anemia type: unspecified type Qualified Code(s): D64.9 - Anemia, un specified (6) Hyponatremia Current Visit: Yes Status: Acute Subjective Principal diagnosis: CAD Interval history: Patient seen. He has no new complaint. ROS stable. Objective - Vital Signs Vital signs: Vital Signs Temp Pulse Resp BP BP BP BP 12/16/18 08:38 18 12/16/18 07:47 63 12/16/18 07:29 98.3 F 63 18 126/56 12/16/18 04:06 16 12/16/18 02:47 98.0 F 60 18 113/63 12/16/18 00:44 98.0 F 62 18 132/61 12/15/18 23:50 16 12/15/18 20:35 115/66 113/75 116/50 12/15/18 20:26 16 12/15/18 19:10 98.0 F 62 20 119/64 12/15/18 16:55 97.8 F 62 15 122/62 12/15/18 16:53 15 12/15/18 16:52 97.8 F 62 18 122/62 12/15/18 12:25 98.0 F 61 15 121/63 12/15/18 11:52 15 12/15/18 11:42 98.0 F 61 18 121/63 Pulse Ox 12/16/18 08:38 97 12/16/18 07:47 12/16/18 07:29 97 12/16/18 04:06 100 12/16/18 02:47 99 12/16/18 00:44 98 12/15/18 23:50 99 12/15/18 20:35 12/15/18 20:26 100 12/15/18 19:10 98 12/15/18 16:55 93 12/15/18 16:53 93 12/15/18 16:52 94 12/15/18 12:25 93 12/15/18 11:52 93 12/15/18 11:42 95 Intake and Output 12/15/18 12/16/18 12/16/18 23:59 07:59 15:59 Intake Total 360 / 360 Output Total 375 / 1625 900 / 900 Balance -375 / -1265 -900 / -540 360 / -540 Intake: Oral 360 / 360 Output: Catheter 375 / 1625 900 / 900 Other: Meal Breakfast Percent of Meal Consumed 100% Weight 89.1 kg Blood Glucose* 184 187 Patient Weight 12/16/18 23:59 Weight 89.1 kg - General Appearance General appearance: Present: well-developed, well-nourished EENT: Present: ATNC Neck: Present: supple Cardiology: Present: regular rate - Lab 12/16/18 06:34 12/16/18 06:34 Most recent lab results 12/16/18 06:34 Calcium 7.3 L Magnesium 2.6 - VTE Documentation of Mechanical Device: Graduated compression elastic hosiery Consult Discharge Plan - Plan Referrals: Yeni Mccord MD [Partnered Physician] - 01/04/19 11:20 am Emilee Conrad CNP [Primary Care Provider] - (patient is going to rehab no PCP appointment needed) Aleksey Joseph MD [Non-Partnered Physician] - 12/20/18 2:50 pm
[2018-12-16] MEDS: *HR* Amiodarone 200 MG TABLET PO SCH (12:13)
--- NOTE | 2018-12-16 14:41 | Cardiothoracic Progress Note ---
Date of Encounter: 12/16/18 Time of Encounter: 14:41 - Assessment and plan (1) CAD (coronary artery disease) Current Visit: Yes Status: Acute The assessment and plan as outlined above was discussed with the patient and/or family members who expressed understanding and agreement. All questions were answered. Qualifiers: Qualified Code(s): I25.110 - Atherosclerotic heart disease of [place] coronary artery with unstable angina pectoris Discussion with patient/family: Assessment and plan Mr. Coughlin is doing improved from yesterday from neurologic standpoint he was slightly bradycardic. 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 He has not had any further neurologic symptoms neurology and vascular surgery is well familiar with him I doubt they will recommend anything but we will have them follow up in the while he is still in the hospital as he looks like he need several more days regardless. From a cardiac standpoint From a respiratory standpoint he is doing well no issues From a GI standpoint he is doing well has had a bowel movement From a fluids electrolytes standpoint no Lasix he has had 1500 already out DC his Benz in the morning concurrently with urology as they were the ones who placed the Benz. ID she is supposed his right anterior tibia area is indurated from his knee down to his medial malleolus it does not look cellulitic he does not have an elevated white count nor fever he has some circular bands related to the Joseph's those did resolve over half an hour talking to him with removal of the tabs he has generalized edema as a result of his heart failure and anasarca but I think it is width. 2 duplex that side which will be done tomorrow. Heme he otherwise is on DVT prophylaxis teds and subcutaneous heparin. standpoint he is on Flomax and Proscar. Overall he slowly improving - Subjective Interval history: Test test test Mr. Coughlin is currently doing well but yesterday did have an episode of light headedness, no falling, no loss of consciousness , while walking. He has not had any further episodes since then. He was more bradycardic with heart rates in the 50s at the time. Since that time we had held the p.m. Lopressor dose and had change the timing of the amiodarone to noon as well as decreased the amiodarone dose from 400 to 200 given that the QT interval was 400. With further investigating through his records, it is apparent that he has had also known right carotid disease and has a murmur there with less than 79% stenosis. Putting this togetherwith the configuration of hemodynamics and that right carotid disease, I attribute the combination of hemodynamics and probably maybe a low flow state through that right carotid disease to be the etiology of his symptoms. at the time, we check orthostatics which he was not. He does not have any gross neurologic deficits, no stroke, no need for head CT. We will have vascular surgery come back and see him here in house to address this or see if it needs to be addressed earlier or simply liberalizing flow through his carotids by decreasing some of the cardiac medications is sufficient. Vital Signs, Last 4 Hours Temp Pulse Resp BP Pulse Ox 12/16/18 12:02 98.2 F 67 18 121/67 98 12/16/18 11:17 18 97 Oxgyen Flow Rate Oxygen Flow Rate (LPM) 2 Weight 12/14/18 12/15/18 12/16/18 23:59 23:59 23:59 Weight 88.4 kg 88.5 kg 89.1 kg - Physical Examination General: Conversant, No Apparent Distress HEENT: Atraumatic, Normocephaly, Trachea midline Neck: No JVD, Carotid bruit, Other Cardiac: Reg Rate and Rhythm, Normal S1 and S2, No Murmur Incision: No signs of infection Sternum: Stable Chest tubes: Other Pacing Wires: Other Lungs: Normal Breath Sounds Neuro: Alert and responsive, No focal deficits noted Vascular: Normal capillary refill Abdomen: Soft Skin: No rashes noted on visualized skin Musculoskeletal: No Chest Wall Tenderness Extremities: No Clubbing, No Cyanosis (On physical exam Mr. Boykin size and appears neurologically intact. From a cardiovascular standpoint he is currently stable with heart rate slightly higher since dropping the Lopressor dose and changing the timing and dropping the amiodarone dose to heart rate of 67 and sinus blood pressure 121/67. From a respiratory standpoint he is on room air with good breath sounds bilaterally his abdomen is soft and nontender he does still have 3+ peripheral edema. Urine output is improved today fully had been previously placed by urology for difficulty.) - Labs 12/16/18 06:34 12/16/18 06:34 Lab Results, Last 24 hours 12/15/18 12/15/18 12/16/18 17:46 17:46 06:34 WBC 6.7 6.5 Hgb 8.5 L 8.0 L Hct 26.5 L 24.9 L Plt Count 259 D 247 Sodium 130 L Potassium 4.7 Chloride 106 Carbon Dioxide 16 L BUN 59 H Creatinine 3.28 H Glucose 218 H Calcium 7.3 L Magnesium 2.6 Total Bilirubin 0.4 AST 23 ALT 24 Alkaline Phosphatase 63 12/16/18 06:34 WBC Hgb Hct Plt Count Sodium 133 L Potassium 4.8 Chloride 105 Carbon Dioxide 14 L BUN 54 H Creatinine 3.17 H Glucose 166 H Calcium 7.3 L Magnesium 2.6 Total Bilirubin AST ALT Alkaline Phosphatase - VTE Documentation of Mechanical Device: Graduated compression elastic hosiery Consult Discharge Plan - Plan Referrals: Yeni Mccord MD [Partnered Physician] - 01/04/19 11:20 am Conrad,Emilee Albarado CNP [Primary Care Provider] - (patient is going to rehab no PCP appointment needed) Aleksey Joseph MD [Non-Partnered Physician] - 12/20/18 2:50 pm
[2018-12-16] MEDS: *HR* OxyCODONE/APAP 5/325 TABLET PO PRN (16:51)
[2018-12-16] MEDS: Sodium Bicarbonate 75 MEQ in 0.45 % Sodium Chloride 1,000 ML IVC SCH (21:20)
[2018-12-17] MEDS: *HR* Heparin 5,000 UNIT/ML VIAL SQ SCH ×2 (05:50→16:40)
[2018-12-17] MEDS: Insulin LISPRO 300 UNITS/3 ML VIAL SQ SCH ×4 (07:36→20:12)
[2018-12-17] MEDS: Sennosides/Docusate Sodium TABLET PO SCH ×2 (07:36→20:13)
[2018-12-17] MEDS: Aspirin Enteric Coated 81 MG Tablet PO SCH (07:36)
[2018-12-17] MEDS: Cholecalciferol (D-3) 1,000 UNIT (25MCG) TABLET PO SCH (07:36)
[2018-12-17] MEDS: Chlorhexidine Rinse 15 ML MOUTHWASH MM SCH ×2 (07:36→20:12)
[2018-12-17] MEDS: Pantoprazole 40 MG VIAL IVP SCH (07:36)
[2018-12-17] MEDS: amLODIPine 5 MG TABLET PO SCH (07:37)
[2018-12-17] MEDS: Finasteride 5 MG TABLET PO SCH (07:37)
[2018-12-17] MEDS: Sodium Bicarbonate 75 MEQ in 0.45 % Sodium Chloride 1,000 ML IVC SCH (09:09)
[2018-12-17 10:38] LABS: Calcium 7.9 mg/dL (8.6-10.3); Potassium 5.3 mEq/L (3.5-5.1)
--- NOTE | 2018-12-17 10:45 | Cardiothoracic Progress Note ---
Date of Encounter: 12/17/18 Time of Encounter: 10:43 - Assessment and plan (1) CAD (coronary artery disease) Current Visit: Yes Status: Acute The patient is recovering well from his CABG4. The patient's renal function appears to have plateaued during the last 24 hours and he is being followed by the nephrology service. He will continue ambulating in the hallways yesterday. He is considering transfer to an inpatient rehabilitation unit as a bridge to home once his renal function has stabilized. The assessment and plan as outlined above was discussed with the patient and/or family members who expressed understanding and agreement. All questions were answered. Qualifiers: Coronary Disease-Associated Artery/Lesion type: [place] artery [place] vs. transplanted heart: [place] heart Associated angina: with unstable angina Qualified Code(s): I25.110 - Atherosclerotic heart disease of [place] coronary artery with unstable angina pectoris - Subjective Procedure(s) Performed: POD#12 S/P CABG4 Interval history: The patient remained hemodynamically stable overnight. He was able to ambulate in his room. He has no complaints. Vital Signs, Last 4 Hours Temp Pulse Resp BP Pulse Ox 12/17/18 07:57 18 94 12/17/18 07:25 98.1 F 65 18 134/66 94 12/17/18 07:00 64 Oxgyen Flow Rate Oxygen Flow Rate (LPM) 2 Weight 12/15/18 12/16/18 12/17/18 23:59 23:59 23:59 Weight 88.5 kg 89.1 kg 88.4 kg - Physical Examination General: Conversant, No Apparent Distress Neck: No JVD, Normal carotid pulses Cardiac: Normal S1 and S2, No Murmur, Other (Irregular rate and rhythm (atrial fibrillation)) Incision: No signs of infection, Dry/intact dressing Sternum: Stable Pacing Wires: In place Lungs: Normal Breath Sounds, No Wheeze, Rales, Rhonchi Neuro: Alert and responsive, No focal deficits noted Vascular: Normal capillary refill Extremities: No Clubbing, No Cyanosis, No Edema, Other (Right lower extremity erythema below the knee along the saphenous vein harvest site ) - Labs 12/16/18 06:34 12/17/18 10:02 Lab Results, Last 24 hours 12/17/18 10:02 Sodium 126 L Potassium 5.3 H Chloride 104 Carbon Dioxide 18 L BUN 59 H Creatinine 3.22 H Glucose 377 H Calcium 7.9 L - VTE Documentation of Mechanical Device: Graduated compression elastic hosiery Consult Discharge Plan - Plan Referrals: Yeni Mccord MD [Partnered Physician] - 01/04/19 11:20 am Conrad,Emilee Albarado CNP [Primary Care Provider] - (patient is going to rehab no PCP appointment needed) Aleksey Joseph MD [Non-Partnered Physician] - 12/20/18 2:50 pm
[2018-12-17] MEDS: cephALEXin 250 MG CAPSULE PO SCH ×3 (11:40→20:13)
[2018-12-17] MEDS: *HR* Amiodarone 200 MG TABLET PO SCH (11:40)
[2018-12-17] MEDS: Insulin DETEMIR 100 UNIT/ML X5UNITS SQ SCH ×2 (13:14→20:13)
--- NOTE | 2018-12-17 13:52 | Electrocardiograph Report ---
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
--- NOTE | 2018-12-17 14:09 | Electrocardiograph Report ---
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
[2018-12-18 02:07] LABS: Calcium 7.6 mg/dL (8.6-10.3)
[2018-12-18] MEDS: *HR* Heparin 5,000 UNIT/ML VIAL SQ SCH (04:48)
--- NOTE | 2018-12-18 06:57 | Cardiothoracic Progress Note ---
Date of Encounter: 12/18/18 Time of Encounter: 06:32 - Assessment and plan (1) CAD (coronary artery disease) Current Visit: Yes Status: Acute The patient is recovering well from his CABG4. The patient's renal function appears to have plateaued and has improved during the last 24 hours. He is being followed by the nephrology service. He will continue ambulating in the hallways today. He will be transferred to an inpatient rehabilitation unit as a bridge to home once his renal function has stabilized. The assessment and plan as outlined above was discussed with the patient and/or family members who expressed understanding and agreement. All questions were answered. Qualifiers: Coronary Disease-Associated Artery/Lesion type: [place] artery [place] vs. transplanted heart: [place] heart Associated angina: with unstable angina Qualified Code(s): I25.110 - Atherosclerotic heart disease of [place] coronary artery with unstable angina pectoris - Subjective Procedure(s) Performed: POD#13 S/P CABG4 Interval history: The patient remained hemodynamically stable overnight. He did not ambulate yesterday. He has no complaints. Vital Signs, Last 4 Hours Temp Pulse Resp BP Pulse Ox 12/18/18 04:18 98.4 F 66 18 119/62 92 12/18/18 04:08 16 89 Oxgyen Flow Rate Oxygen Flow Rate (LPM) 0 Weight 12/16/18 12/17/18 12/18/18 23:59 23:59 23:59 Weight 89.1 kg 88.4 kg 89.1 kg - Physical Examination General: Conversant, No Apparent Distress Neck: No JVD, Normal carotid pulses Cardiac: Reg Rate and Rhythm, Normal S1 and S2, No Murmur Incision: No signs of infection, Dry/intact dressing Sternum: Stable Lungs: Normal Breath Sounds, No Wheeze, Rales, Rhonchi Neuro: Alert and responsive, No focal deficits noted Vascular: Normal capillary refill Extremities: No Clubbing, No Cyanosis, No Edema - Labs 12/16/18 06:34 12/18/18 01:30 Lab Results, Last 24 hours 12/17/18 12/18/18 10:02 01:30 Sodium 126 L 132 L Potassium 5.3 H 5.0 Chloride 104 104 Carbon Dioxide 18 L 19 L BUN 59 H 60 H Creatinine 3.22 H 2.99 H Glucose 377 H 169 H Calcium 7.9 L 7.6 L - VTE Documentation of Mechanical Device: Graduated compression elastic hosiery Consult Discharge Plan - Plan Referrals: Yeni Mccord MD [Partnered Physician] - 01/04/19 11:20 am Conrad,Emilee Albarado CNP [Primary Care Provider] - (patient is going to rehab no PCP appointment needed) Aleksey Joseph MD [Non-Partnered Physician] - 01/10/19 9:00 am
[2018-12-18 07:28] VITALS: BP 114/62
[2018-12-18] MEDS: Finasteride 5 MG TABLET PO SCH (08:26)
[2018-12-18] MEDS: Cholecalciferol (D-3) 1,000 UNIT (25MCG) TABLET PO SCH (08:26)
[2018-12-18] MEDS: Insulin LISPRO 300 UNITS/3 ML VIAL SQ SCH (08:26)
[2018-12-18] MEDS: amLODIPine 5 MG TABLET PO SCH (08:26)
[2018-12-18] MEDS: cephALEXin 250 MG CAPSULE PO SCH (08:27)
[2018-12-18] MEDS: Aspirin Enteric Coated 81 MG Tablet PO SCH (08:27)
[2018-12-18] MEDS: Chlorhexidine Rinse 15 ML MOUTHWASH MM SCH (08:27)
[2018-12-18] MEDS: Pantoprazole 40 MG VIAL IVP SCH (08:27)
[2018-12-18] MEDS: Sennosides/Docusate Sodium TABLET PO SCH (08:27)
[2018-12-18] MEDS ORDERED: 0.9 % Sodium Chloride 1,000 ML ONE (11:06)
[2018-12-18 11:12] LABS: ABG Base Excess -12 mEq/L (-2 to 3); ABG HCO3 19 mEq/L (21-27); ABG PCO2 78 mmHg (35-45); ABG PO2 < 17 mmHg (85-104); ABG TCO2 22 mEq/L (20-26)
--- NOTE | 2018-12-18 11:17 | Procedure Note ---
Date of procedure: 12/18/18 Pre-op diagnosis: Cardiac arrest Post-op diagnosis: same Procedure: Responded to cardiac arrest. I offered to help secure the airway. 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 Intubation performed using direct laryngoscopy. No sedation was required. A grade 2 view of the cords was obtained, cricoid pressure was required. Endotracheal tube visualized passing through the vocal cords. Positive color change on the CO2 monitor. Bilateral breath sounds were auscultated. Of note, bloody-appearing pulmonary edema emanating from endotracheal tube. Anesthesia: none Was there an development assistant present: No Estimated blood loss (cc): 0 Specimen: none
[2018-12-18] MEDS ORDERED: *HR* EPINEPHrine 1 MG/10 ML SYRINGE IVP ONE (14:42)
--- NOTE | 2018-12-18 20:01 | Event Note ---
Date of Encounter: 12/18/18 Time of Encounter: 20:00 Pt is 88 y/o male POD#13 S/P CABG4 was hospitalized for CABG which was done 12 days ago. Patient was doing well and was planned to get discharged to the rehabilitation center. Nurse called to patients room by another staff nurse, after LACER AND TIER and nursing repositioned in bed. This RN noted patient had no pulse Compressions started and code blue called at 1048. Chest compression started, he was intubated, patient was connected to the monitor. Total 6 doses of epin ephrine were given, 2 amp of bicarbonate, and 1 amp of calcium gluconate. Labs were drawn. Frequent Pulse/rhythm checks were done and patient remained in asystole. Approximately 20-22 minutes after starting the CODE BLUE, patient had no heartbeat/pulse. The code was stopped and did not undergo family were made aware by the nursing staff. Patient at 11:10. Most likely cause of her is a cardiac arrest secondary to underlying comorbidities and also patient was POD # 13 after CABG X 4 .
--- NOTE | 2019-01-11 14:16 | Discharge Summary ---
Date of Encounter: 12/18/18 Time of Encounter: 11:15 - Discharge Diagnosis (1) CAD (coronary artery disease) Priority: Primary Status: Acute Qualifiers: Coronary Disease-Associated Artery/Lesion type: [place] artery [place] vs. transplanted heart: [place] heart Associated angina: with unstable angina Qualified Code(s): I25.110 - Atherosclerotic heart disease of [place] coronary artery with unstable angina pectoris - Hospital Course Hospital course: Mr. Coughlin is a 88 year old type II diabetic, hypertensive man with known right carotid artery disease, hypercholesterolemia, and CKD, Stage III. The patient was being evaluated by his vascular surgeon, Dr. Jimmy Torres, for his right carotid artery disease and mentioned that he had throat pain radiating into his upper chest. He was referred for cardiac evaluation. The patient told his sports lawyer that he has experienced throat pain radiating to his upper chest with activity and has associated shortness of breath for several weeks. Recently, the patient states that the symptoms have become more frequent and severe. He underwent cardiac catheterization today was found to have severe 3 vessel CAD. In particular, the patient has a 70% ostial/proximal left main lesion, a 70% proximal LAD lesion, an 80% distal LCx lesion, a 70% proximal RCA lesion, a 60% mid RCA lesion, and a 70% mid right PDA lesion. He has been recommended for urgent CABG. His serum creatinine increased from 1.692 1.9 on the day of operation; however, he continued to have substernal chest pain while in the hospital on a heparin drip. It was decided to perform his CABG today rather than wait for creatinine to return to his baseline. The patient underwent CABG 4 on 12/05/2018. Postoperatively, his creatinine increased and GFR decreased. He was being followed by nephrology. He developed postoperative atrial fibrillation with a controlled rate on medical therapy. The patient was ambulating on POD #13 and had 2 episodes of pauses after walking. The patient's rhythm then deteriorated to PEA and a CODE BLUE was initiated. The patient was unable to be resuscitated and on 12/18/2018 at 1110 hrs. - Time Spent with Patient Total time spent providing and/or coordinating discharge services: - Discharge Medications Prescriptions: No Action Insulin ASPART [Novolog Flexpen] 4 - 10 unit SQ TID Cholecalciferol (D-3) [Vitamin D] 1,000 unit PO QAM Aspirin Enteric Coated [Aspirin EC] 81 mg PO QPM Nitroglycerin [Nitrostat] 0.4 mg SL AD PRN PRN Reason: Chest Pain Finasteride [Proscar] 5 mg PO DAILY Lisinopril 2.5 mg PO QAM Metoprolol Succinate [Toprol Xl] 25 mg PO DAILY Denosumab [Prolia (For Outpatient Infusion)] 60 mg SQ [id number] Rosuvastatin [Crestor] 20 mg PO HS Insulin Degludec [Tresiba Flextouch U-200] 12 unit SQ QAM Amlodipine Besylate 10 mg PO DAILY Ferrous Sulfate 325 mg PO BID Tamsulosin HCl [Flomax] 0.4 mg PO DAILY Home Medications: Aspirin Enteric Coated [Aspirin EC] 81 mg PO QPM 10/30/15 [History] Cholecalciferol (D-3) [Vitamin D] 1,000 unit PO QAM 10/30/15 [History] Insulin ASPART [Novolog Flexpen] 4 - 10 unit SQ TID 10/30/15 [History] Nitroglycerin [Nitrostat] 0.4 mg SL AD PRN 10/30/15 [History] Denosumab [Prolia (For Outpatient Infusion)] 60 mg SQ [id number] 12/03/18 [History] Finasteride [Proscar] 5 mg PO DAILY 12/03/18 [History] Insulin Degludec [Tresiba Flextouch U-200] 12 unit SQ QAM 12/03/18 [History] Lisinopril 2.5 mg PO QAM 12/03/18 [History] Metoprolol Succinate [Toprol Xl] 25 mg PO DAILY 12/03/18 [History] Rosuvastatin [Crestor] 20 mg PO HS 12/03/18 [History] Amlodipine Besylate 10 mg PO DAILY 12/04/18 [History] Ferrous Sulfate 325 mg PO BID 12/04/18 [History] Tamsulosin HCl [Flomax] 0.4 mg PO DAILY 12/04/18 [History] Allergies/Adverse Reactions: Allergy/AdvReac Type Severity Reaction Status Date / Time metoclopramide AdvReac See Verified 12/07/18 09:47 Comments Date of admission: 12/04/18 11:30 Primary care physician: Emilee Conrad CNP Consults: 12/04/18 08:13 Consult to Cardiothoracic Surgery [CONS] Routine Consulting Provider: Cardiothoracic Surgery [place] Reason for Consult: Severe 3 v CAD Call Completed: Yes 12/04/18 09:44 Consult to Cardiac Rehabilitation-Phase1 [CONS] Routine Comment: Reason for Consult: CAD planning for CABG Call Completed: Yes 12/05/18 11:51 Consult to Cardiac Rehabilitation-Phase1 [CONS] Routine Comment: Reason for Consult: Post open heart Call Completed: Yes 12/05/18 14:04 Consult to Nephrology [CONS] Routine Consulting Provider: [facility]IVIANA/TERI/KALI Reason for Consult: known CKD Per Dr. Mccord/Dr. Avila Time Notified: 14:04 Call Completed: No 12/06/18 06:35 Consult to Neurology [CONS] Stat Consulting Provider: [facility] Reason for Consult: new onset numbless, tingling and twitching in chest and face s/p CABG. Call Completed: No 12/06/18 15:14 Consult to Interpret Exam [CONS] Routine Consulting Provider: Chet Dhaliwal Consult to Interpret Exam: Interpret EEG 12/08/18 12:08 Consult for Pharmacy Education [CONS] Routine Reason for Consult: Post-Op Heart Call Completed: Yes Consult to Physical Therapy [CONS] Routine Comment: Evaluate, develop and implement POC Reason for Consult: Post open heart Does patient have active BEDREST order?: No Is patient medically & hemodynamically stable?: Yes 12/10/18 07:31 Consult to Medical Laboratory Technologist [CONS] Routine Reason for SW Consult: d/c planning 12/12/18 11:09 Consult to Wound Care [CONS] Routine Reason for Consult: wound on buttocks Time Notified: 10:40 Call Completed: Yes 12/16/18 15:08 Consult to Vascular Surgery [CONS] Routine Consulting Provider: Vascular [facility] Reason for Consult: lighthead with ambulation, known previous carotid stenosis. Call Completed: No Procedure(s) Performed: 1. Cardiac catheterization performed 12/03/2018. 2. CABG4 (KATZ to LAD, sequential SVG to OM1 then OM 2, SVG to PDA) performed 12/05/2018. 3. Endoscopic vein harvesting, greater saphenous vein from right lower extremity performed 12/05/2018. Discharging clinician: Yeni Mccord Anticipated date of discharge: 12/18/18 - Patient Status Disposition: - Discharge Instructions Follow Up With: Yeni Mccord MD [Partnered Physician] - 01/04/19 11:20 am Conrad,Emilee Albarado CNP [Primary Care Provider] - (patient is going to rehab no PCP appointment needed) Aleksey Joseph MD [Non-Partnered Physician] - 01/10/19 9:00 am - VTE Documentation of Mechanical Device: Graduated compression elastic hosiery
== END 2018-12-18 14:43 | disposition expired | DRG 234 ==
LOC: 2ANU 10:21 → INVDIALAB 10:21 → 2ANU 13:29 → ICNU 12-05 10:01 → 2NNU 12-09 07:50
PROVIDERS: ADMIT Internal Medicine Cardiovascular Disease; ATTEND Thoracic Surgery (Cardiothoracic Vascular Surgery)